=== PATIENT | female | born 1975 | race Caucasian/White ===

== ENCOUNTER 2023-12-30 17:18 | Inpatient (IN) ==
[2023-12-30] MEDS: SODIUM CHLORIDE 0.9% 1,000 ML IV SCH ×2 (18:05→20:16)
[2023-12-30 18:27] LABS: Appearance Urine Cloudy (Clear); Bacteria Urine Automated 1+ (Negative); Bilirubin Urine Negative (Negative); Blood Urine 1+ (Negative); Color Urine Dark Yellow; Epithelial Cell Urine Auto >30 /lpf (0-5); Glucose Urine UA Negative (Negative); Ketones Urine 1+ (Negative); Leukocyte Esterase Urine Negative (Negative); Nitrite Urine Negative (Negative); Protein Urine 1+ (Negative); Specific Gravity Urine 1.036 (1.000-1.030); Urobilinogen Urine Negative (Negative)
[2023-12-30 18:28] LABS: Basophils # (auto) 0.02 K/uL (0.00-0.20); Basophils % (auto) 0.2 %; Eosinophils # (auto) 0.01 K/uL (0.00-0.50); Eosinophils % (auto) 0.1 %; Hematocrit (blood only) 39.9 % (37.0-47.0); Hemoglobin 13.2 g/dl (12.0-16.0); Immature Granulocytes # (auto) 0.05 K/uL (0.01-0.20); Immature Granulocytes % (auto) 0.6 %; Lymphocytes # (auto) 0.93 K/uL (1.20-3.40); Lymphocytes % (auto) 10.5 %; Mean Corpuscular Hgb Conc 33.1 g/dL (32.0-36.0); Mean Corpuscular Volume 93.7 fL (80.0-100.0); Mean Platelet Volume 8.5 fL (9.4-12.4); Monocytes % (auto) 13.5 %; Neutrophils # (auto) 6.66 K/uL (1.40-6.50); Neutrophils % (auto) 75.1 %; Platelet Count 434 K/uL (130-400); RDW Coefficient of Variation 11.9 % (11.5-14.5); RDW Standard Deviation 40.6 fL (36.4-46.3); Red Blood Count 4.26 M/uL (4.20-5.40); White Blood Count 8.87 K/ul (4.8-10.8)
--- NOTE | 2023-12-30 18:37 | Emergency Department Note ---
History of Present Illness General Chief complaint: Illness Stated complaint: ULCERATIVE COLITIS FLARE-UP Time Seen by Provider: 12/30/23 17:30 History of Present Illness Patient is a 48-year-old female with past medical history significant for ulcerative colitis who presents to the emergency department at the advice of gastroenterology for an ulcerative colitis flare. Patient notes that her UC had been in remission on mesalamine and azathioprine for several years, she had a screening colonoscopy in the fall however that noted active disease. The patient was fairly asymptomatic with this. GI had her stop her oral agents and started her on Humira in October. She has been compliant with her Humira injections, most recently was administered a dose today. Despite the Humira, patient began to notice increasing symptoms including pain, cramping and bloody diarrhea. They resumed her oral agents, with no change. She subsequently has been on prednisone at varying doses for the last couple of weeks, with continued symptoms. She just saw GI 2 days ago, they increased the prednisone to 60 mg a day. She has had 3 doses of this, and reports that she is still having dozens of episodes of bloody diarrhea. Her GI provider suggested that if she did not get any better on the oral prednisone, that she should be admitted for IV steroids. Patient has not had any fevers. She has occasional nausea. She has not vomited. She reports bilateral lower abdominal cramping, but only prior to a bowel movement. Most the time she is generally comfortable. She has had blood work and stool studies recently that have been unremarkable. No recent antibiotics. No foreign travel or unusual food or water consumption. She does have well water as a source at home, but family members are drinking the same water and are not ill. She denies any sick contacts. LMP ended a few days ago. Allergies Allergy/AdvReac Type Severity Reaction Status Date / Time Sulfa (Sulfonamide Allergy Mild Rash Verified 12/30/23 17:53 Antibiotics) Past Med/Surg History Medical History Ulcerative colitis Surgical History History of colonoscopy Social History Smoking Status: Never smoker Preferred Language: Libyan marital status: Current Living Situation: Family current occupation: Homemaker, babysits, 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: Yes Review of Systems A total of 10 systems reviewed and were otherwise negative Physical Exam Vital Signs Vital Signs - 24 hr 12/30/23 17:22 12/30/23 20:00 Temperature 36.5 C Temperature Source Temporal Artery Scan Pulse Rate 97 H Pulse Rate [Finger] 87 Pulse Rhythm Regular Respiratory Rate 20 18 Respiratory Effort / Characteristics Non-Labored Spontaneous Non-Labored Spontaneous Respiratory Depth Normal Normal Respiratory Pattern Regular Regular Blood Pressure 129/85 Blood Pressure [Right Arm] 131/80 Blood Pressure Mean 99 Blood Pressure Mean [Right Arm] 97 Blood Pressure Position [Right Arm] Semi-fowlers Pulse Oximetry 97 100 Oxygen Delivery Method Room Air Room Air Sepsis Recent Fever Within 48 Hours No Sepsis New/Unexplained Change in Mental Status No Sepsis Action Taken by Nursing No Action Required CONSTITUTIONAL: Patient is a pleasant, well-appearing 48-year-old female laying on the gurney. She is in no acute distress. Spouse is at the bedside. EYES: Pupils equal, round, reactive to light and accommodation. EOMs intact without nystagmus. Sclera are anicteric. ENT: Tympanic membranes intact, with normal landmarks. External canals are clear. Oral and nasopharynx are clear. Mucous membranes are moist, no lesions, tongue and gums appear normal. CARDIOVASCULAR: Regular rate and rhythm. Peripheral pulses easy to palpable. RESPIRATORY: Breath sounds equal and clear to auscultation. GI: Bowel sounds are present. Abdomen is soft, mildly distended, tender to percussion and palpation across the lower abdomen. There is voluntary guarding in the right and the left lower quadrant. No rigidity. MUSCULOSKELETAL: Full range of motion of extremities x 4 with good strength. No cyanosis, edema, joint tenderness or swelling. No deformity. INTEGUMENTARY: No lesions or rash, normal skin turgor. LYMPH: No lymphadenopathy. Course Course The patient was seen and assessed as above. External medical records were reviewed. I did ask ED case checker to access the [employer] [facility] system for recent GI notes, and reviewed these as well. She presents to the emergency department for evaluation of a UC flare. It was the recommendation of her hose finisher that she be admitted for IV steroids. IV lock was initiated and laboratory studies were collected. She was hydrated with normal saline solution. She declined pain and nausea medications. CBC with differential, ESR, CMP, lipase, serum hCG, urinalysis and stool studies were obtained. CT scan of the abdomen and pelvis with IV contrast was ordered. Diagnostics, as interpreted by me: Laboratory studies: Normal white count 8800. Mild left shift noted. Mildly elevated ESR at 41. No anemia. No electrolyte imbalance or ABDIRASHID. No transaminitis. Lipase is not indicative of acute pancreatitis. Serum HCG negative, urine microscopy is a contaminated sample with greater than 30 epithelial cells and mucus. Stool PCR is negative. Stool is negative for C. difficile. Ova and parasites are pending. Imaging studies: CT scan of abdomen and pelvis with IV contrast notes pancolitis. No evidence for obstruction or abscess. Case reviewed with attending physician, Dr. Gooden. Patient also discussed with ED case checker. All laboratory and diagnostic imaging studies were discussed with the patient and her spouse at length. After review of the information above and other included data, I feel the patient would benefit from inpatient care. She has failed reasonable outpatient management. The patient was in agreement. Case reviewed with the [facility] hospitalist, Dr. Muhammad for further care and management. Differential diagnosis: Differential diagnoses entertained included GERD, gastritis, esophagitis, peptic ulcer disease, ulcerative colitis flare, infectious colitis, foodborne illness, bowel obstruction, perforation, abscess, fistula disease, electrolyte or metabolic abnormality, dehydration, among others. Administered Medications Sodium Chloride (Nss) 1,000 mls @ 250 mls/hr IV .Q4H [facility] Stop: 01/29/24 17:59 Last Admin: 12/30/23 20:16 Dose: 250 mls/hr Documented By: RIKA Discontinued Medications Sodium Chloride (Nss) 1,000 mls @ 999 mls/hr IV .Q1H1M MAYDA Stop: 12/30/23 18:54 Last Infusion: 12/30/23 19:49 Dose: Infused Documented By: Admin: 12/30/23 18:05 Dose: 999 mls/hr Documented By: RIKA Ioversol (Optiray 320 100ml) 89 ml IV ONCE ONE Stop: 12/30/23 18:59 Last Admin: 12/30/23 18:58 Dose: 89 ml Documented By: VIOLA Medical Decision Making Differential Diagnosis See ED Course. Medical Records Attestation: I reviewed the patient's medical records. Home Medications Current Medication List: was personally reviewed by me Laboratory Data Attestation: I reviewed the patient's lab results. 12/30/23 18:02 12/30/23 18:02 Lab Results 12/30/23 12/30/23 12/30/23 Range/Units 18:02 18:52 19:44 WBC 8.87 (4.8-10.8) K/ul RBC 4.26 (4.20-5.40) M/uL Hgb 13.2 (12.0-16.0) g/dl Hct 39.9 (37.0-47.0) % MCV 93.7 (80.0-100.0) fL MCH 31.0 (25.0-34.0) pg MCHC 33.1 (32.0-36.0) g/dL RDW Std Deviation 40.6 (36.4-46.3) fL RDW Coeff of Ezequiel 11.9 (11.5-14.5) % Plt Count 434 H (130-400) K/uL MPV 8.5 L (9.4-12.4) fL Immature Gran % (Auto) 0.6 % Neut % (Auto) 75.1 % Lymph % (Auto) 10.5 % Mcdowell % (Auto) 13.5 % Eos % (Auto) 0.1 % Baso % (Auto) 0.2 % Neut # (Auto) 6.66 H (1.40-6.50) K/uL Lymph # (Auto) 0.93 L (1.20-3.40) K/uL Mcdowell # (Auto) 1.20 H (0.11-0.59) K/uL Eos # (Auto) 0.01 (0.00-0.50) K/uL Baso # (Auto) 0.02 (0.00-0.20) K/uL Immature Gran # (Auto) 0.05 (0.01-0.20) K/uL ESR 41 H (0-20) mm/hr Sodium 137 (136-145) mmol/L Potassium 3.7 (3.5-5.1) mmol/L Chloride 102 (98-107) mmol/L Carbon Dioxide 27 (21-32) mmol/L Anion Gap 8 (3-11) BUN 12 (6-23) mg/dl Creatinine 0.72 (0.6-1.2) mg/dl Est Cr Clr Drug Dosing 95.8 ml/min Est GFR ( Amer) 114.0 ml/min Est GFR (Non-Af Amer) 98.3 ml/min BUN/Creatinine Ratio 16.7 (10-20) Glucose 109 H (70-99(Fasting)) mg/dl Lactate 0.9 (0.4-2.0) mmol/L Calcium 9.3 (8.6-10.3) mg/dl Total Bilirubin 0.6 (0.2-1.0) mg/dl AST 14 (13-39) U/L ALT 22 (7-52) U/L Alkaline Phosphatase 79 (34-104) U/L Total Protein 7.2 (6.0-8.3) gm/dl Albumin 3.9 (3.4-5.0) gm/dl Globulin 3.3 (2.5-4.0) gm/dl Albumin/Globulin Ratio 1.2 (0.9-2) Lipase 21 (11-82) U/L HCG, Qual Negative (Negative) Urine Color Dark Yellow Urine Appearance Cloudy A (Clear) Urine pH 6.0 (4.5-7.5) Ur Specific [place] 1.036 H (1.000-1.030) Urine Protein 1+ H (Negative) Urine Glucose (UA) Negative (Negative) Urine Ketones 1+ H (Negative) Urine Blood 1+ H (Negative) Urine Nitrite Negative (Negative) Urine Bilirubin Negative (Negative) Urine Urobilinogen Negative (Negative) Ur Leukocyte Esterase Negative (Negative) Urine WBC (Auto) 10-30 H (0-5) /hpf Urine RBC (Auto) 5-10 H (0-4) /hpf U Hyaline Cast (Auto) 0 (0-5) /lpf U Epithel Cells (Auto) >30 H (0-5) /lpf Urine Bacteria (Auto) 1+ H (Negative) Urine Mucus Present A (None Prsent) Stl C. cayetanensis PCR Not Detected (NotDetected) Stool Rotavirus A PCR Not Detected (NotDetected) Stl Adenov F 40/41 PCR Not Detected (NotDetected) Stool Astrovirus (PCR) Not Detected (NotDetected) Stool Campylobacter PCR Not Detected (NotDetected) Stl C. diff Tox B Gene Negative Cdiff Gene (Neg) Stool Cryptosporidium PCR Not Detected (NotDetected) Stl E.coli Shiga Tox PCR Not Detected (NotDetected) Stl Enterotoxigenic E PCR Not Detected (NotDetected) Stool EPEC (PCR) Not Detected (NotDetected) Stool EAEC (PCR) Not Detected (NotDetected) Stl E. histolytica PCR Not Detected (NotDetected) Stool Giardia Lamblia PCR Not Detected (NotDetected) Stool Salmonella PCR Not Detected (NotDetected) Stool Sapovirus (PCR) Not Detected (NotDetected) Stl P. shigelloides PCR Not Detected (NotDetected) Stl Shigella/EIEC PCR Not Detected (NotDetected) St Y.enterocolitica PCR Not Detected (NotDetected) Stool Vibrio (PCR) Not Detected (NotDetected) Stl Vibrio cholerae PCR Not Detected (NotDetected) Stl Norovirus GI/GII PCR Not Detected (NotDetected) Imaging Data Attestation: I personally reviewed and interpreted this imaging study as follows: Radiologist's Impression: Abdomen/Pelvis CT 12/30/23 17:53 Exam(s): CT ABDOMEN + PELVIS With Contrast IV Amt: 89 ml optiray 320 EXAM: CT Abdomen and Pelvis With Intravenous Contrast CLINICAL HISTORY: Reason for exam: ULC COLITIS FLARE, PAIN/BLOODY DIARRHEA. TECHNIQUE: Axial computed tomography images of the abdomen and pelvis with intravenous contrast. CTDI is 13.8 mGy and DLP is 690.21 mGy-cm. Automated exposure control was utilized for the study. A dose lowering technique was utilized adhering to the principles of ALARA. CONTRAST: Patient received 89 ml optiray 320 of IV contrast COMPARISON: No relevant prior studies available. FINDINGS: Lung bases: Unremarkable. No mass. No consolidation. ABDOMEN: Liver: Unremarkable. No mass. Gallbladder and bile ducts: Unremarkable. No calcified stones. No ductal dilation. Pancreas: Unremarkable. No mass. No ductal dilation. Spleen: Unremarkable. No splenomegaly. Adrenals: Unremarkable. No mass. Kidneys and ureters: Unremarkable. No solid mass. No hydronephrosis. Stomach and bowel: Pancolonic wall thickening with associated pericolic fat stranding and venous engorgement. No bowel obstruction. PELVIS: Appendix: Normal appendix. Bladder: Unremarkable. No mass. Reproductive: Multiple uterine masses, largest a right intramural mass measuring 7.7 cm, likely fibroids. ABDOMEN and PELVIS: Intraperitoneal space: Scant free pelvic fluid. No free air. Bones/joints: No acute fracture. No dislocation. Soft tissues: Unremarkable. Vasculature: Unremarkable. No abdominal aortic aneurysm. Lymph nodes: Unremarkable. No enlarged lymph nodes. IMPRESSION: 1. Pancolonic wall thickening consistent with pancolitis, inflammatory or infectious. 2. Fibroid uterus. Electronically signed by: Babs Corrales M.D. 12/30/23 19:21 PM MDM Narrative See ED Course. Impression & Plan Exacerbation of ulcerative colitis Discharge Plan Visit Data Chief Complaint: Illness Stated Complaint: ULCERATIVE COLITIS FLARE-UP ED Provider: Michael Gooden ED Midlevel Provider: Lewis Wharton Discharge Problem: Exacerbation of ulcerative colitis Patient Disposition: Being Evaluated by Hospitalist Forms Stand Alone Forms: My [facility] Referrals Referrals: PCP,NO [Primary Care Provider] -
[2023-12-30 18:39] LABS: Cast Urine Automated 0 /lpf (0-5); Mucus Urine Present (None Prsent)
[2023-12-30 18:45] LABS: Albumin Globulin Ratio 1.2 (0.9-2); Albumin Level 3.9 gm/dl (3.4-5.0); BUN Creatinine Ratio 16.7 (10-20); Bilirubin,Total 0.6 mg/dl (0.2-1.0); Calcium 9.3 mg/dl (8.6-10.3); Creatinine Clr Calc Pharmacy 95.8 ml/min; Est GFR (Non-African American) 98.3 ml/min; Globulin 3.3 gm/dl (2.5-4.0); Potassium 3.7 mmol/L (3.5-5.1); Total Protein 7.2 gm/dl (6.0-8.3)
[2023-12-30 18:50] LABS: Pregnancy Test, Serum Negative (Negative)
[2023-12-30] MEDS: OPTIRAY 320 100ml IV ONE (18:58)
--- NOTE | 2023-12-30 19:21 | CT Scan Report ---
Exam(s): CT ABDOMEN + PELVIS With Contrast IV Amt: 89 ml optiray 320 EXAM: CT Abdomen and Pelvis With Intravenous Contrast CLINICAL HISTORY: Reason for exam: ULC COLITIS FLARE, PAIN/BLOODY DIARRHEA. TECHNIQUE: Axial computed tomography images of the abdomen and pelvis with intravenous contrast. CTDI is 13.8 mGy and DLP is 690.21 mGy-cm. Automated exposure control was utilized for the study. A dose lowering technique was utilized adhering to the principles of ALARA. CONTRAST: Patient received 89 ml optiray 320 of IV contrast COMPARISON: No relevant prior studies available. FINDINGS: Lung bases: Unremarkable. No mass. No consolidation. ABDOMEN: Liver: Unremarkable. No mass. Gallbladder and bile ducts: Unremarkable. No calcified stones. No ductal dilation. Pancreas: Unremarkable. No mass. No ductal dilation. Spleen: Unremarkable. No splenomegaly. Adrenals: Unremarkable. No mass. Kidneys and ureters: Unremarkable. No solid mass. No hydronephrosis. Stomach and bowel: Pancolonic wall thickening with associated pericolic fat stranding and venous engorgement. No bowel obstruction. PELVIS: Appendix: Normal appendix. Bladder: Unremarkable. No mass. Reproductive: Multiple uterine masses, largest a right intramural mass measuring 7.7 cm, likely fibroids. ABDOMEN and PELVIS: Intraperitoneal space: Scant free pelvic fluid. No free air. Bones/joints: No acute fracture. No dislocation. Soft tissues: Unremarkable. Vasculature: Unremarkable. No abdominal aortic aneurysm. Lymph nodes: Unremarkable. No enlarged lymph nodes. IMPRESSION: 1. Pancolonic wall thickening consistent with pancolitis, inflammatory or infectious. 2. Fibroid uterus. Electronically signed by: Babs Corrales M.D. 12/30/23 19:21 PM
[2023-12-30 20:33] LABS: Adenovirus F 40/41 PCR Not Detected (NotDetected); Astrovirus PCR Not Detected (NotDetected); Campylobacter PCR Not Detected (NotDetected); Cryptosporidium PCR Not Detected (NotDetected); Cyclospora cayetanensis PCR Not Detected (NotDetected); Entamoeba histolytica PCR Not Detected (NotDetected); Enteroaggregative E.coli(EAEC) Not Detected (NotDetected); Enteropathogenic E.coli (EPEC) Not Detected (NotDetected); Enterotoxigenic E.coli (ETEC) Not Detected (NotDetected); Giardia lamblia PCR Not Detected (NotDetected); Norovirus GI/GII PCR Not Detected (NotDetected); Plesiomonas shigelloides PCR Not Detected (NotDetected); Rotavirus A PCR Not Detected (NotDetected); Salmonella PCR Not Detected (NotDetected); Sapovirus PCR Not Detected (NotDetected); Shiga-like Toxin E.coli (STEC) Not Detected (NotDetected); Shigella/Enteroinvasive E.coli Not Detected (NotDetected); Vibrio cholerae PCR Not Detected (NotDetected); Vibrio species PCR Not Detected (NotDetected); Yersinia enterocolitica PCR Not Detected (NotDetected)
--- NOTE | 2023-12-30 23:44 | History & Physical Report ---
Date of Service December 30, 2023 Assessment & Plan (1) Exacerbation of ulcerative colitis: Plan: 48-year-old female with past medical history significant for ulcerative proctosigmoiditis, family history of factor V deficiency comes because of ulcerative colitis flare. Patient states started on Humira in October. Patient also on Imuran and mesalamine. And she is on prednisone for almost 4 weeks and recently started on high-dose prednisone 60 mg. But still she is having multiple episodes of diarrhea and blood in the stools. Has abdominal pain prior to moving bowels and after bowel movement the pain subsides. Has nausea but no vomiting. Appetite is down. Denies any fevers. Micturating okay. No chest pain or shortness of breath. No headache. No blurred visions. No runny nose or sore throat or cough. Hemodynamics are okay. Exacerbation of ulcerative colitis Failed outpatient treatment with p.o. prednisone Recent start of Humira in October Continue home mesalamine and Imuran IV Solu-Medrol 20 mg 3 times daily N.p.o. for now IV fluids, IV Dilaudid as needed IV antiemetics as needed GI consult in a.m. for further recommendations DVT prophylaxis Lovenox Disposition Medical floor Full code History of Present Illness Chief Complaint: Ulcerative colitis flare Primary Care Provider: NO PCP 48-year-old female with past medical history significant for ulcerative proctosigmoiditis, family history of factor V deficiency comes because of ulcerative colitis flare. Patient states started on Humira in October. Patient also on Imuran and mesalamine. And she is on prednisone for almost 4 weeks and recently started on high-dose prednisone 60 mg. But still she is having multiple episodes of diarrhea and blood in the stools. Has abdominal pain prior to moving bowels and after bowel movement the pain subsides. Has nausea but no vomiting. Appetite is down. Denies any fevers. Micturating okay. No chest pain or shortness of breath. No headache. No blurred visions. No runny nose or sore throat or cough. Hemodynamics are okay. Past medical history. As mentioned above Past surgical history. Multiple colonoscopies. Social history. . No smoking. No alcohol use. No drug use. Family history. Maternal grandmother had breast cancer. Sister has thyroid disease. Allergies Allergy/AdvReac Type Severity Reaction Status Date / Time Sulfa (Sulfonamide Allergy Mild Rash Verified 12/30/23 21:56 Antibiotics) Home Medications Medication Instructions Recorded Confirmed Type adalimumab 40 mg/0.8 mL 40 mg subcut .[id number] 12/30/23 12/30/23 History subcutaneous pen kit (Humira Pen) azathioprine 50 mg tablet 150 mg PO QAM 12/30/23 12/30/23 History cholecalciferol (vitamin D3) 25 25 mcg PO DAILY 12/30/23 12/30/23 History mcg (1,000 unit) tablet (Vitamin D3) cyanocobalamin (vitamin B-12) 1,000 mcg PO DAILY 12/30/23 12/30/23 History 1,000 mcg tablet (Vitamin B-12) folic acid 0.8 mg capsule 0.8 mg PO DAILY 12/30/23 12/30/23 History mesalamine 1.2 gram tablet,delayed 4.8 g PO QAM 12/30/23 12/30/23 History release multivitamin 1 tab PO DAILY 12/30/23 12/30/23 History prednisone 10 mg tablet 60 mg PO DAILY 12/30/23 12/30/23 History Past Med/Surg History Medical History Ulcerative colitis Surgical History History of colonoscopy Social History Smoking Status: Never smoker Hx Alcohol Use: Yes Alcohol type: beer and wine Hx Substance Use: No Preferred Language: Kazakh Embroidery Supervisor Required: No Beliefs That Will Affect Care: None marital status: Current Living Situation: Spouse current occupation: Homemaker, babysits, 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: Yes Safety Concerns: Feels Safe At This Time Assistive Devices: None Review of Systems Review of Systems: All systems reviewed & are unremarkable except as noted in HPI & below Physical Exam Physical Exam: General- Not in distress Head- atraumatic Eyes- PERRL. ENT- oropharynx clear Neck- supple, no JVD. Lungs- clear to auscultation no wheezing or crackles. Heart- regular rhythm; no murmur, no gallop. Abdomen- normal bowel sounds, soft, nontender, no distension. Extremities- no pretibial edema, no erythema seen. Neuro- alert, oriented PERRL, no facial palsy; no dysarthria; moves extremities. Skin- warm & dry Results & Data Results & Data Vital Signs (Past 12 Hours) Vital Signs Temp Pulse Pulse Resp BP BP Pulse Ox 12/30/23 22:00 87 16 124/81 99 12/30/23 20:00 87 18 131/80 100 12/30/23 17:22 36.5 C 97 H 20 129/85 97 O2 Del Method 12/30/23 22:00 Room Air 12/30/23 20:00 Room Air 12/30/23 17:22 Room Air Diagnostic Findings Laboratory Results WBC 8.87 K/ul (4.8-10.8) 12/30/23 18: RBC 4.26 M/uL (4.20-5.40) 12/30/23 18:02 Hgb 13.2 g/dl (12.0-16.0) 12/30/23 18: Hct 39.9 % (37.0-47.0) 12/30/23 18:02 MCV 93.7 fL (80.0-100.0) 12/30/23 18: MCH 31.0 pg (25.0-34.0) 12/30/23 18: MCHC 33.1 g/dL (32.0-36.0) 12/30/23 18:02 RDW Std Deviation 40.6 fL (36.4-46.3) 12/30/23 18:02 RDW Coeff of Ezequiel 11.9 % (11.5-14.5) 12/30/23 18: Plt Count 434 K/uL (130-400) H 12/30/23 18:02 MPV 8.5 fL (9.4-12.4) L 12/30/23 18:02 Immature Gran % (Auto) 0.6 % 12/30/23 18: Neut % (Auto) 75.1 % 12/30/23 18:02 Lymph % (Auto) 10.5 % 12/30/23 18:02 [place] % (Auto) 13.5 % 12/30/23 18:02 Eos % (Auto) 0.1 % 12/30/23 18:02 Baso % (Auto) 0.2 % 12/30/23 18:02 Neut # (Auto) 6.66 K/uL (1.40-6.50) H 12/30/23 18:02 Lymph # (Auto) 0.93 K/uL (1.20-3.40) L 12/30/23 18:02 [place] # (Auto) 1.20 K/uL (0.11-0.59) H 12/30/23 18:02 Eos # (Auto) 0.01 K/uL (0.00-0.50) 12/30/23 18:02 Baso # (Auto) 0.02 K/uL (0.00-0.20) 12/30/23 18:02 Immature Gran # (Auto) 0.05 K/uL (0.01-0.20) 12/30/23 18:02 ESR 41 mm/hr (0-20) H 12/30/23 18:02 Sodium 137 mmol/L (136-145) 12/30/23 18:02 Potassium 3.7 mmol/L (3.5-5.1) 12/30/23 18:02 Chloride 102 mmol/L (98-107) 12/30/23 18:02 Carbon Dioxide 27 mmol/L (21-32) 12/30/23 18:02 Anion Gap 8 (3-11) 12/30/23 18:02 BUN 12 mg/dl (6-23) 12/30/23 18:02 Creatinine 0.72 mg/dl (0.6-1.2) 12/30/23 18:02 Est Cr Clr Drug Dosing 95.8 ml/min 12/30/23 18:02 Est GFR ( Amer) 114.0 ml/min 12/30/23 18:02 Est GFR (Non-Af Amer) 98.3 ml/min 12/30/23 18:02 BUN/Creatinine Ratio 16.7 (10-20) 12/30/23 18:02 Glucose 109 mg/dl (70-99(Fasting)) H 12/30/23 18:02 Lactate 0.9 mmol/L (0.4-2.0) 12/30/23 19:44 Calcium 9.3 mg/dl (8.6-10.3) 12/30/23 18:02 Total Bilirubin 0.6 mg/dl (0.2-1.0) 12/30/23 18:02 AST 14 U/L (13-39) 12/30/23 18:02 ALT 22 U/L (7-52) 12/30/23 18:02 Alkaline Phosphatase 79 U/L (34-104) 12/30/23 18:02 Total Protein 7.2 gm/dl (6.0-8.3) 12/30/23 18:02 Albumin 3.9 gm/dl (3.4-5.0) 12/30/23 18: Globulin 3.3 gm/dl (2.5-4.0) 12/30/23 18: Albumin/Globulin Ratio 1.2 (0.9-2) 12/30/23 18: Lipase 21 U/L (11-82) 12/30/23 18:02 HCG, Qual Negative (Negative) 12/30/23 18: Urine Color Dark Yellow 12/30/23 18: Urine Appearance Cloudy (Clear) A 12/30/23 18: Urine pH 6.0 (4.5-7.5) 12/30/23 18: Ur Specific [place] 1.036 (1.000-1.030) H 12/30/23 18:02 Urine Protein 1+ (Negative) H 12/30/23 18: Urine Glucose (UA) Negative (Negative) 12/30/23 18: Urine Ketones 1+ (Negative) H 12/30/23 18: Urine Blood 1+ (Negative) H 12/30/23 18: Urine Nitrite Negative (Negative) 12/30/23 18: Urine Bilirubin Negative (Negative) 12/30/23 18: Urine Urobilinogen Negative (Negative) 12/30/23 18: Ur Leukocyte Esterase Negative (Negative) 12/30/23 18:02 Urine WBC (Auto) 10-30 /hpf (0-5) H 12/30/23 18:02 Urine RBC (Auto) 5-10 /hpf (0-4) H 12/30/23 18:02 U Hyaline Cast (Auto) 0 /lpf (0-5) 12/30/23 18:02 U Epithel Cells (Auto) >30 /lpf (0-5) H 12/30/23 18:02 Urine Bacteria (Auto) 1+ (Negative) H 12/30/23 18:02 Urine Mucus Present (None Prsent) A 12/30/23 18:02 Stl C. cayetanensis PCR Not Detected (NotDetected) 12/30/23 18:52 Stool Rotavirus A PCR Not Detected (NotDetected) 12/30/23 18:52 Stl Adenov F 40/41 PCR Not Detected (NotDetected) 12/30/23 18:52 Stool Astrovirus (PCR) Not Detected (NotDetected) 12/30/23 18:52 Stool Campylobacter PCR Not Detected (NotDetected) 12/30/23 18:52 Stl C. diff Tox B Gene Negative Cdiff Gene (Neg) 12/30/23 18:52 Stool Cryptosporidium PCR Not Detected (NotDetected) 12/30/23 18:52 Stl E.coli Shiga Tox PCR Not Detected (NotDetected) 12/30/23 18:52 Stl Enterotoxigenic E PCR Not Detected (NotDetected) 12/30/23 18:52 Stool EPEC (PCR) Not Detected (NotDetected) 12/30/23 18:52 Stool EAEC (PCR) Not Detected (NotDetected) 12/30/23 18:52 Stl E. histolytica PCR Not Detected (NotDetected) 12/30/23 18:52 Stool Giardia Lamblia PCR Not Detected (NotDetected) 12/30/23 18:52 Stool Salmonella PCR Not Detected (NotDetected) 12/30/23 18:52 Stool Sapovirus (PCR) Not Detected (NotDetected) 12/30/23 18:52 Stl P. shigelloides PCR Not Detected (NotDetected) 12/30/23 18:52 Stl Shigella/EIEC PCR Not Detected (NotDetected) 12/30/23 18:52 St Y.enterocolitica PCR Not Detected (NotDetected) 12/30/23 18:52 Stool Vibrio (PCR) Not Detected (NotDetected) 12/30/23 18:52 Stl Vibrio cholerae PCR Not Detected (NotDetected) 12/30/23 18:52 Stl Norovirus GI/GII PCR Not Detected (NotDetected) 12/30/23 18:52 Impressions Abdomen/Pelvis CT 12/30/23 17:53 Exam(s): CT ABDOMEN + PELVIS With Contrast IV Amt: 89 ml optiray 320 EXAM: CT Abdomen and Pelvis With Intravenous Contrast CLINICAL HISTORY: Reason for exam: ULC COLITIS FLARE, PAIN/BLOODY DIARRHEA. TECHNIQUE: Axial computed tomography images of the abdomen and pelvis with intravenous contrast. CTDI is 13.8 mGy and DLP is 690.21 mGy-cm. Automated exposure control was utilized for the study. A dose lowering technique was utilized adhering to the principles of ALARA. CONTRAST: Patient received 89 ml optiray 320 of IV contrast COMPARISON: No relevant prior studies available. FINDINGS: Lung bases: Unremarkable. No mass. No consolidation. ABDOMEN: Liver: Unremarkable. No mass. Gallbladder and bile ducts: Unremarkable. No calcified stones. No ductal dilation. Pancreas: Unremarkable. No mass. No ductal dilation. Spleen: Unremarkable. No splenomegaly. Adrenals: Unremarkable. No mass. Kidneys and ureters: Unremarkable. No solid mass. No hydronephrosis. Stomach and bowel: Pancolonic wall thickening with associated pericolic fat stranding and venous engorgement. No bowel obstruction. PELVIS: Appendix: Normal appendix. Bladder: Unremarkable. No mass. Reproductive: Multiple uterine masses, largest a right intramural mass measuring 7.7 cm, likely fibroids. ABDOMEN and PELVIS: Intraperitoneal space: Scant free pelvic fluid. No free air. Bones/joints: No acute fracture. No dislocation. Soft tissues: Unremarkable. Vasculature: Unremarkable. No abdominal aortic aneurysm. Lymph nodes: Unremarkable. No enlarged lymph nodes. IMPRESSION: 1. Pancolonic wall thickening consistent with pancolitis, inflammatory or infectious. 2. Fibroid uterus. Electronically signed by: Babs Corrales M.D. 12/30/23 19:21 PM Code Status & VTE Plan VTE Prophylaxis Plan VTE Prophylaxis will be ordered: Yes
[2023-12-30] MEDS: methylPREDNISolone 125 MG/2 ML VIAL IV STA (23:46)
[2023-12-31] MEDS ORDERED: HYDROmorphone INJ 0.5 MG/0.5 ML SYR IV PRN (00:43)
[2023-12-31] MEDS ORDERED: ONDANSETRON INJ 2 MG/ML 2 ML VIAL IV PRN (00:43)
[2023-12-31] MEDS: D5W AND NSS 1,000 ML IV SCH (01:23)
[2023-12-31] MEDS: cefTRIAXone SODIUM 1,000 MG in DEXTROSE 5 % MINI-B 50 ML IV SCH (01:23)
[2023-12-31 05:58] LABS: Basophils # (auto) 0.02 K/uL (0.00-0.20); Basophils % (auto) 0.3 %; Eosinophils # (auto) 0.01 K/uL (0.00-0.50); Eosinophils % (auto) 0.1 %; Hematocrit (blood only) 34.5 % (37.0-47.0); Hemoglobin 11.6 g/dl (12.0-16.0); Immature Granulocytes # (auto) 0.03 K/uL (0.01-0.20); Immature Granulocytes % (auto) 0.4 %; Lymphocytes # (auto) 0.71 K/uL (1.20-3.40); Lymphocytes % (auto) 9.8 %; Mean Corpuscular Hemoglobin 31.4 pg (25.0-34.0); Mean Corpuscular Hgb Conc 33.6 g/dL (32.0-36.0); Mean Corpuscular Volume 93.5 fL (80.0-100.0); Mean Platelet Volume 8.5 fL (9.4-12.4); Monocytes # (auto) 0.55 K/uL (0.11-0.59); Monocytes % (auto) 7.6 %; Neutrophils % (auto) 81.8 %; Platelet Count 347 K/uL (130-400); RDW Standard Deviation 40.9 fL (36.4-46.3); Red Blood Count 3.69 M/uL (4.20-5.40); White Blood Count 7.22 K/ul (4.8-10.8)
[2023-12-31 06:50] LABS: Anion Gap 5 (3-11); BUN Creatinine Ratio 9.1 (10-20); Blood Urea Nitrogen 6 mg/dl (6-23); Calcium 8.1 mg/dl (8.6-10.3); Carbon Dioxide 25 mmol/L (21-32); Chloride 107 mmol/L (98-107); Creatinine Clr Calc Pharmacy 104.8 ml/min; Est GFR (African American) 120.2 ml/min; Est GFR (Non-African American) 103.7 ml/min; Glucose 126 mg/dl (70-99(Fasting)); Magnesium 1.9 mg/dl (1.7-2.4); Sodium 137 mmol/L (136-145)
[2023-12-31] MEDS: methylPREDNISolone 20 MG in SYRINGE 0 ML IV SCH (07:30)
[2023-12-31] MEDS: ENOXAPARIN INJ 40 MG/0.4 ML SYR SQ SCH (08:55)
[2023-12-31] MEDS ORDERED: methylPREDNISolone 125 MG/2 ML VIAL IV SCH (09:00)
--- NOTE | 2023-12-31 09:09 | History & Physical Report ---
Date of Service December 31, 2023 Assessment & Plan Admission and Anticipated Discharge Date Admission Date: December 30, 2023 History of Present Illness Primary Care Provider: NO PCP UC CV: RRR Resp: CTA Abd: soft A/P: UC flare Allergies Allergy/AdvReac Type Severity Reaction Status Date / Time Sulfa (Sulfonamide Allergy Mild Rash Verified 12/31/23 09:05 Antibiotics) Home Medications Medication Instructions Recorded Confirmed Type adalimumab 40 mg/0.8 mL 40 mg subcut .[id number] 12/30/23 12/30/23 History subcutaneous pen kit (Humira Pen) azathioprine 50 mg tablet 150 mg PO QAM 12/30/23 12/30/23 History cholecalciferol (vitamin D3) 25 25 mcg PO DAILY 12/30/23 12/30/23 History mcg (1,000 unit) tablet (Vitamin D3) cyanocobalamin (vitamin B-12) 1,000 mcg PO DAILY 12/30/23 12/30/23 History 1,000 mcg tablet (Vitamin B-12) folic acid 0.8 mg capsule 0.8 mg PO DAILY 12/30/23 12/30/23 History mesalamine 1.2 gram tablet,delayed 4.8 g PO QAM 12/30/23 12/30/23 History release multivitamin 1 tab PO DAILY 12/30/23 12/30/23 History prednisone 10 mg tablet 60 mg PO DAILY 12/30/23 12/30/23 History Past Med/Surg History Medical History Ulcerative colitis Surgical History History of colonoscopy Social History Smoking Status: Never smoker Hx Alcohol Use: Yes Alcohol type: beer and wine Hx Substance Use: No Preferred Language: Khmer Ring Maker Required: No Beliefs That Will Affect Care: None marital status: Current Living Situation: Spouse current occupation: Homemaker, babysits, 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
--- NOTE | 2023-12-31 09:12 | Anesthesiology Consultation ---
Date of Service December 31, 2023 History Surgery Operation Date: 12/31/23 17:30 Proposed Procedures p Colonoscopy Dr Gray - Dayna Gray MD Pt has a history of ulcerative collitis on Humira and Prednisone 60 q/day. Now with an UC exacerbation. Height/Weight Height: 5 ft 6 in Weight: 72 kg Allergies Allergy/AdvReac Type Severity Reaction Status Date / Time Sulfa (Sulfonamide Allergy Mild Rash Verified 12/31/23 09:05 Antibiotics) Medications Home Medications Medication Instructions Recorded Confirmed Last Taken adalimumab 40 mg/0.8 mL 40 mg subcut .[id number] 12/30/23 12/30/23 12/30/23 subcutaneous pen kit (Humira Pen) azathioprine 50 mg tablet 150 mg PO QAM 12/30/23 12/30/23 12/30/23 08:00 cholecalciferol (vitamin D3) 25 25 mcg PO DAILY 12/30/23 12/30/23 Unknown mcg (1,000 unit) tablet (Vitamin D3) cyanocobalamin (vitamin B-12) 1,000 mcg PO DAILY 12/30/23 12/30/23 Unknown 1,000 mcg tablet (Vitamin B-12) folic acid 0.8 mg capsule 0.8 mg PO DAILY 12/30/23 12/30/23 Unknown mesalamine 1.2 gram tablet,delayed 4.8 g PO QAM 12/30/23 12/30/23 12/30/23 08:00 release multivitamin 1 tab PO DAILY 12/30/23 12/30/23 Unknown prednisone 10 mg tablet 60 mg PO DAILY 12/30/23 12/30/23 12/30/23 08:00 Active Medications Generic Name Dose Route Start Last Admin Trade Name Freq PRN Reason Stop Dose Admin Enoxaparin Sodium 40 mg 12/31/23 09:00 12/31/23 08:55 Enoxaparin Inj 40 Mg/0.4 Ml Syr SQ 01/30/24 08:59 40 mg Q24H MAYDA Administration Dextrose/Sodium Chloride 1,000 mls @ 125 mls/hr 12/31/23 00:43 12/31/23 01:23 D5w And Nss IV 01/30/24 00:42 125 mls/hr .Q8H MAYDA Administration Ceftriaxone Sodium 1,000 mg/ 50 mls @ 100 mls/hr 12/31/23 01:00 12/31/23 03:56 Dextrose IV 01/10/24 00:59 Infused Q24H MAYDA Infusion Protocol Methylprednisolone 20 mg/ 0.32 mls @ 1.5 mls/min 12/31/23 08:00 12/31/23 07:30 Syringe IV 01/30/24 07:59 1.5 mls/min Q8H MAYDA Administration Miscellaneous 1 each 12/31/23 08:00 12/31/23 07:30 Mesalamine 1.2 Gram Tablet - Order Awaiting Action N/A 01/30/24 07:59 Not Given QS MAYDA Past Medical History Medical History Ulcerative colitis Past Surgical History Surgical History History of colonoscopy Social History Smoking Status: Never smoker Hx Alcohol Use: Yes Alcohol type: beer and wine alcohol intake frequency: holidays/special occasions only Hx Substance Use: No substance use type: does not use Physical Exam Vital Signs Last Vital Signs Temp 36.6 C 12/31/23 07:40 Pulse 87 12/31/23 07:40 Resp 16 12/31/23 07:40 BP 130/79 12/31/23 07:40 Pulse Ox 97 12/31/23 07:40 O2 Del Method Room Air 12/31/23 07:40 Testing Laboratory Results 12/31/23 05:30 12/31/23 07:13 Urine Color Dark Yellow 12/30/23 18:02 Urine Appearance Cloudy (Clear) A 12/30/23 18:02 Urine pH 6.0 (4.5-7.5) 12/30/23 18:02 Ur Specific [place] 1.036 (1.000-1.030) H 12/30/23 18:02 Urine Protein 1+ (Negative) H 12/30/23 18:02 Urine Glucose (UA) Negative (Negative) 12/30/23 18:02 Urine Ketones 1+ (Negative) H 12/30/23 18:02 Urine Nitrite Negative (Negative) 12/30/23 18:02 Ur Leukocyte Esterase Negative (Negative) 12/30/23 18:02 Urine WBC (Auto) 10-30 /hpf (0-5) H 12/30/23 18:02 Urine RBC (Auto) 5-10 /hpf (0-4) H 12/30/23 18:02 U Hyaline Cast (Auto) 0 /lpf (0-5) 12/30/23 18:02 U Epithel Cells (Auto) >30 /lpf (0-5) H 12/30/23 18:02 Urine Bacteria (Auto) 1+ (Negative) H 12/30/23 18:02
--- NOTE | 2023-12-31 09:57 | Gastrointestinal Consultation ---
Date of Consultation December 31, 2023 Assessment & Plan (1) Exacerbation of ulcerative colitis: Plan Continue IV steroids, NPO. Unprepped colonoscopy today by Dr. Gray. Further recommendations to follow. Supervising Physician Co-Signing Physician Notes Attg add: Pt with h/o UC now with flare failing outpt steroids, admit with > 10 bloody BM's daily. No systemic toxicity, she looks well without abd tenderness on exam. WBC and hgb preserved, albumin preserved, CRP 1.5. Cscopy with severe colitis. IV steroids; r/o CMV by pathology results; plan for transition to [facility]. Repeat CRP / albumin tomorrow. History of Present Illness Reason for Consultation: UC, failed OP treatment Requesting Physician: Dr. Willis Attending Physician: Matty Willis MD History of Present Illness Ms. Yelena Orozco is a 48 yr old female patient admitted yesterday for failed OP tx of UC. She is on Humira, since October and has also been on prednisone tapers x 2 since then with continued diarrhea (multiple/day, w some blood), diffuse abd discomfort. CT yesterday w pancolic wall thickening. She is mildly anemic at 11.6. No leukocytosis. Stools for C-diff and GI path (-). Allergies Allergy/AdvReac Type Severity Reaction Status Date / Time Sulfa (Sulfonamide Allergy Mild Rash Verified 12/31/23 09:05 Antibiotics) Home Medications Medication Instructions Recorded Confirmed Type adalimumab 40 mg/0.8 mL 40 mg subcut .[id number] 12/30/23 12/30/23 History subcutaneous pen kit (Humira Pen) azathioprine 50 mg tablet 150 mg PO QAM 12/30/23 12/30/23 History cholecalciferol (vitamin D3) 25 25 mcg PO DAILY 12/30/23 12/30/23 History mcg (1,000 unit) tablet (Vitamin D3) cyanocobalamin (vitamin B-12) 1,000 mcg PO DAILY 12/30/23 12/30/23 History 1,000 mcg tablet (Vitamin B-12) folic acid 0.8 mg capsule 0.8 mg PO DAILY 12/30/23 12/30/23 History mesalamine 1.2 gram tablet,delayed 4.8 g PO QAM 12/30/23 12/30/23 History release multivitamin 1 tab PO DAILY 12/30/23 12/30/23 History prednisone 10 mg tablet 60 mg PO DAILY 12/30/23 12/30/23 History Patient History Medical History Ulcerative colitis Surgical History History of colonoscopy Social History Smoking Status: Never smoker Hx Alcohol Use: Yes Alcohol type: beer and wine Hx Substance Use: No Preferred Language: Tajik Communication Ability: Effective Senior Sustainability Advisor Required: No Beliefs That Will Affect Care: None marital status: Current Living Situation: Spouse current occupation: Homemaker, babysits, 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: Yes Safety Concerns: Feels Safe At This Time Assistive Devices: None Review of Systems 2 Review of Systems: ROS: Gen: Denies weakness, fevers, weight loss Eyes: No eye redness, or pain, no recent vision changes Resp: No SOB, no cough Cardio: No palpitations/irregular beats, no chest pain GI: As per HPI, otherwise (-) : Denies pain on urination Skin: No jaundice, itching or new rashes Physical Exam 2 Constitutional: WD/WN, vitals as above Eyes: PERRL, conjunctivae normal, anicteric sclerae ENMT: external ear and nose normal, oropharynx normal Neck: trachea midline, no thyromegaly Respiratory: normal respiratory effort, lungs clear to auscultation Cardiovascular: RRR, no murmur, no edema Gastrointestinal (Abdomen): soft, non distended, diffuse abd tenderness L >R Musculoskeletal: no cyanosis or clubbing, extremities motor strength 5/5 Skin: no rashes, warm and dry Neurologic: PERRL, EOMI, accommodation nl, no face palsy, no dysarthria Psychiatric: A+Ox3, euthymic affect Results & Data Vital Signs (Past 12 Hours) Vital Signs Temp Pulse Resp BP Pulse Ox O2 Del Method 12/31/23 09:42 101 H 16 116/83 97 Room Air 12/31/23 09:06 36.6 C 84 16 149/87 H 100 Room Air 12/31/23 07:40 36.6 C 87 16 130/79 97 Room Air 12/31/23 00:49 36.9 C 95 H 16 147/83 H 95 Room Air 12/30/23 23:52 36.9 C 83 16 125/79 98 Room Air 12/30/23 22:00 87 16 124/81 99 Room Air Laboratory Results 12/31/23 05:30 12/31/23 07:13 Diagnostic Findings CTAP w IV 12/30/23: 1. Pancolonic wall thickening consistent with pancolitis, inflammatory or infectious. 2. Fibroid uterus.
--- NOTE | 2023-12-31 10:06 | GI REPORT ---
Patient Name: Yelena Orozco Procedure Date: 12/31/2023 9:15 AM Date of : 1975 Admit Type: Inpatient Age: 48 Gender: Female Attending MD: Dayna Gray MD, Procedure: Colonoscopy Providers: Dayna Gray MD Referring MD: Matty Willis Md Indications: Follow-up of ulcerative colitis Medicines: See the Anesthesia note for documentation of the administered medications Complications: No immediate complications. Estimated Blood Loss: Estimated blood loss: none. Procedure: Pre-Anesthesia Assessment: - ASA Grade Assessment: III - A patient with severe systemic disease. After I obtained informed consent, the scope was passed under direct vision. Throughout the procedure, the patient's blood pressure, pulse, and oxygen saturations were monitored continuously. The scope was introduced through the anus and advanced to the cecum, identified by appendiceal orifice and ileocecal valve. The colonoscopy was performed without difficulty. The patient tolerated the procedure. The quality of the bowel preparation was good. Findings: The perianal and digital rectal examinations were normal. There was evidence of severe colitis throughout the entire colon, characterized by continuous and circumferential ulceration, marked edema and erythema of the entire colonic mucosa. The ulceration was near confluent in the descending colon, with only patches of edematous mucosa. There was no spontaneous bleeding. The ileum was not intubated, as the pt began to retch with cecal intubation. Biopses taken from throughout the colon. Impression: Frank 3 rangel-colitis. Recommendation: - Discharge patient to floor. Continue steroids. Follow up biopsies for CMV. Consider transition to [facility]. Dayna Gray M.D. Dayna Gray MD 12/31/2023 10:05:56 AM This report has been signed electronically. Note Initiated On: 12/31/2023 9:15 AM Number of Addenda: 0 I attest to the content of the Intraoperative Record and orders documented therein, exceptions below {[id number]}
[2023-12-31] MEDS: FOLIC ACID 400 MCG TAB PO SCH (10:33)
[2023-12-31] MEDS: MULTIVITAMIN TAB PO SCH (10:33)
[2023-12-31] MEDS: CHOLECALCIFEROL 25 MCG (1000 UNITS) TAB PO SCH (10:33)
[2023-12-31] MEDS: CYANOCOBALAMIN (B-12) 500 MCG TABLET PO SCH (10:33)
[2023-12-31] MEDS: azaTHIOprine 50 MG TAB PO SCH (10:34)
[2023-12-31] MEDS: ONDANSETRON INJ 2 MG/ML 2 ML VIAL ONE (10:44)
[2023-12-31] MEDS: PROPOFOL IV EMULSION 10 MG/ML 20 ML VIAL IV ONE (10:44)
[2023-12-31] MEDS: LIDOCAINE 2% 2 ML VIAL/AMP(20MG/ML) INFIL ONE (10:44)
--- OUTSIDE RECORDS SUMMARY | 2023-12-31 13:15 | External Medical Summary | Summary of Care ---
Author Name Unknown Organization [facility] Address [address] [place] [address] Phone [phone] Care Team Providers Care Ash Conveyor Operator Name Role Phone Jessica Haas PA-C Primary Care Provider Reason for Visit * Reason Comments Outpatient Testing Encounter Details Date Type Department Care Team ([facility] st Contact Info) Description 12/09/2023 3:50 PM [facility] Laboratory [facility] [address] [facility] [address] [place] [id number] Ulcerative colitis without complications, unspecified location (HCC) Allergies Active Allergy Reactions Criticality Noted Date Comments Sulfa Antibiotics Rash 01/18/2001 documented as of this encounter (statuses as of 12/09/2023) Medications Medication Sig Dispensed Refills Start Date End Date Status MULTIVITAMIN/MULTIMINERAL PO TABS 1 TABLET DAILY , vitamin with Calcium 0 03/17/2006 Active FOLIC ACID 800 MCG PO TABSIndications:Ulcerativ e proctosigmoiditis (HCC) 1 TABLET DAILY 0 03/17/2006 Active VITAMIN B-12 250 MCG PO TABS 1 tablet a day 0 Active VITAMIN D3 400 UNITS PO TABS 1 tablets daily 0 Active Humira Pen 40 MG/0.8ML Subcutaneous Pen-injector Kit (Adalimumab)Indications:U lcerative rectosigmoiditis with complication (HCC) Inject 1 pen (40mg) under the skin every 2 weeks. 2 Each 5 08/26/2023 Active Magnesium 200 MG Oral Tablet Chewable Take by mouth. 0 Activ e documented as of this encounter (statuses as of 12/09/2023) Active Problems Problem Noted Date Diagnosed Date Family history of factor V deficiency 12/27/2013 ADVANCE DIRECTIVE INFORMATION 03/04/2007 Overview: No, Advance Directive brochure offered , patient declined. 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 documented as of this encounter (statuses as of 12/09/2023) Immunizations Name Administration Dates Next Due Seasonal Influenza, PF, 6 M & above, IM , (FluLaval or Fluzone) 12/06/2019 TDAP (age 11 and older)(Adacel) 09/26/2009 documented as of this encounter Social History Tobacco Use Types Packs/Day Years Used Date Smoking Tobacco: Never Smokeless Tobacco: Never Alcohol Use Standard Drinks/Week Comments No 0 (1 standard drink = 0.6 oz pur e alcohol) PHQ-2 Answer Date Recorded PHQ-2 Score 0 08/08/2018 Sex and Gender Information Value Date Recorded Sex Assigned at Not on file Gender Identity Not on file Sexual Orientation Not on file Job Start Date Occupation Industry Not on file Not on file Not on file documented as of this encounter Plan of Treatment Upcoming Encounters Date Type Department Care Team (Latest Contact Info) Description 02/15/2024 3:00 PM EDT Office Visit Dermatology [facility] [address] [place] [address] Dominic Lynch PA-C [address] [place] [address] 03/10/2024 12:30 PM EDT Office Visit Gastroenterology, [facility] [address] [place] [address] Angella Aguilera CRNP [address] [place] [address] 05/12/2024 9:30 AM EDT Hospital Encounter ENDO [facility], Endoscopy Room [facility] [address] [phone] Tunde Rod MD [address] [place] [address] 05/12/2024 9:30 AM EDT - 05/12/2024 10:00 AM EDT Surgery ENDO [facility], Endoscopy Room [facility] [address] [place] [phone] Tunde Rod MD [address] [place] [address] COLONOSCOPY FLEXIBLE PROXIMAL DIAGNOSTIC Pending Results Name Type Priority Associated Diagnoses Date /Time ERYTHROCYTE SEDIMENTATION RATE (ESR) Lab Routine Ulcerative colitis without complications, unspecified location (HCC) 12/09/2023 3:55 PM EST CRP (INFLAMMATORY MARKER) Lab Routine Ulcerative colitis without complications, unspecified location (HCC) 12/09/2023 3:55 PM EST Scheduled Procedures Name Priority Associated Diagnoses Date/Ti me COLONOSCOPY FLEXIBLE PROXIMAL DIAGNOSTIC Ulcerative colitis (HCC) 05/12/2024 9:30 AM EDT Health Maintenance Due Date Last Done Comments Lipid Panel 1974 COVID-19 Vaccine (#1) 1979 Pneumococcal Vaccine: Pediatrics (0 to 5 Years) and At-Risk Patients (6 to 64 Years) (1 of 2 - PCV) 1980 HIV Screening 1989 Hepatitis C Screening 1992 Hepatitis B (1 of 3 - 19+ 3-dose series) 1993 HPV/Co-Test 2004 Depression Screening 10/21/2018 10/21/2017 DTaP,Tdap,and Td Vaccines (2 - Td or Tdap) 09/26/2019 09/26/2009 Mammogram 06/08/2020 06/08/2019 Cervical Cancer Screening 11/04/2020 Pap Smear 11/04/2020 11/04/2017, 10/07, 12/27/2013, Additional history exists Influenza Vaccine (FLU shot) (#1) 2023 12/06/2019, 11/04/2017 (Declined) COLONOSCOPY-EVERY 2 YRS AGES 18-100 06/23/2025 06/23/2023, 06/23/2023, 02/27/2021, Additional history exists Diabetes Screening 08/06/2026 08/06/2023, 0 02/19/2023, 09/02/2022, Additional history exists GARDASIL-HPV IMMUNIZATION SERIES Aged Out No longer eligible based on patient's age to complete this topic MENINGOCOCCAL (MENACTRA/MENVEO) Aged Out No longer eligible based on patient's age to complete this topic documented as of this encounter Medical Devices Not on filedocumented as of this encounter Visit Diagnoses Diagnosis Ulcerative colitis without complications, unspecified location (HCC) Ulcerative colitis (HCC) Ulcerative colitis, unspecified documented in this encounter Care Teams Ash Conveyor Operator Relationship Specialty Start Date End Date Jessica Haas PA-C [address] [place], [place] [address] [id number] PCP - General Physician Safety And Occupational Health Manager 03/09/19 documented as of this encounter
--- OUTSIDE RECORDS SUMMARY | 2023-12-31 13:15 | External Medical Summary ---
Author Name Unknown Address Unknown Organization [id number]:[facility] - [address] [place] [address] Laboratory Report Ordering Provider Test Date Status AYALA REID 12/10/2023 11:39:12 Final Observation Date Value Abnormality Reference (Units) Status Source 12/10/2023 11:39:12 Liquid Final Clostridioides difficile toxin and [id number] strain DNA panel - Stool by [facility] with probe detection 12/10/2023 11:39:12 Negative. No C. difficile toxin B gene DNA detected by PCR (Amplified Probe). Negative Final Performing Location [facility] - [address] [place] [address]
--- OUTSIDE RECORDS SUMMARY | 2023-12-31 13:15 | External Medical Summary | Summary of Care ---
Author Name Unknown Organization [facility] Address [address] [place] [address] Phone [phone] Care Team Providers Care Refuse Collector Name Role Phone Jessica Haas PA-C Primary Care Provider Reason for Visit * Reason Comments Outpatient Testing Encounter Details Date Type Department Care Team (Late st Contact Info) Description 12/10/2023 11:40 AM [facility] Laboratory Laboratory [facility], [address] [address] Street, Specimen Drop Off [address] [address] Ulcerative colitis without complications, unspecified location (HCC) Allergies Active Allergy Reactions Criticality Noted Date Comments Sulfa Antibiotics Rash 01/18/2001 documented as of this encounter (statuses as of 12/10/2023) Medications Medication Sig Dispensed Refills Start Date [...] as of this encounter (statuses as of 12/10/2023) Active Problems Problem Noted Date Diagnosed Date Family history of factor V deficiency 12/27/2013 ADVANCE DIRECTIVE INFORMATION 03/04/2007 Overview: No, Advance Directive brochure offered , patient declined. 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 [address] [address] Angella Aguilera CRNP [address] [address] 05/12/2024 9:30 AM EDT Hospital Encounter ENDO [facility], Endoscopy Room [facility] [address] [phone] Tunde Rod MD [address] [place] [address] 05/12/2024 9:30 AM EDT - 05/12/2024 10:00 AM EDT Surgery ENDO [facility], Endoscopy Room [facility] [address] [place] [phone] Tunde Rod MD [address] [place] [address] COLONOSCOPY FLEXIBLE PROXIMAL DIAGNOSTIC Pending Results Name Type Priority Associated Diagnoses Date /Time CLOSTRIDIUM DIFFICILE, PCR Lab Routine Ulcerative colitis without complications, unspecified location (HCC) 12/10/2023 11:39 AM EST GASTROINTESTINAL PATHOGEN PANEL, STOOL Lab Routine Ulcerative colitis without complications, unspecified location (HCC) 12/10/2023 11:39 AM EST GASTROINTESTINAL PATHOGEN PANEL PCR Lab Routine Ulcerative colitis without complications, unspecified location (HCC) 12/10/2023 11:39 AM EST GASTROINTESTINAL PATHOGEN PANEL CULTURE Lab Routine Ulcerative colitis without complications, unspecified location (HCC) 12/10/2023 11:39 AM EST Scheduled Procedures Name Priority Associated Diagnoses [...] Ulcerative colitis, unspecified documented in this encounter Additional Health Concerns Infection Onset Date Last Indicated Resolved Time C. difficile Rule-Out 12/10/2023 12/10/2023 Gastrointestinal Rule-Out 12/10/2023 12/10/2023 documented as of this encounter Care Teams Refuse Collector Relationship Specialty Start Date End Date Jessica Haas PA-C [address] [place], [place] [address] [phone] PCP - General Physician Electrical Engineering Designer 03/09/19 documented as of this encounter
--- OUTSIDE RECORDS SUMMARY | 2023-12-31 13:15 | External Medical Summary ---
Author Name Unknown Address Unknown Organization [id number]:[facility] - [address] [place] [id number] Laboratory Report Ordering Provider Test Date Status AYALA REID 12/10/2023 11:39:20 Final Observation Date Value Abnormality Reference (Units) Status Bacteria identified in Specimen by Culture 12/10/2023 11:39:20 No Aeromonas species or Plesiomonas species isolated. Final Test: Gastrointestinal Patho gen Panel Culture
Specimen Source: Stool
Specimen Type: Stool
Specimen Date: 12/10/2023 11:39 AM
Result Date: 12/13/2023 10:47 AM
Result Status: Final result
Resulting Lab: [facility]
[address]
[place] [address]

CULTURE

No Aeromonas species or Plesiomonas species isolated.

null Performing Location [facility] - [address] [facility] [address]
--- OUTSIDE RECORDS SUMMARY | 2023-12-31 13:15 | External Medical Summary | Summary of Care ---
Author Name Unknown Organization [facility] Address [address] [facility] [place] [address] Phone [phone] Care Team Providers Care Anthropology Lecturer Name Role Phone Jessica Haas PA-C Primary Care Provider Reason for Visit * Reason Onset Date Comments Test Results 12/11/2023 Encounter Details Date Type Department Care Team (Late st Contact Info) Description 12/11/2023 Telephone Gastroenterology, [facility] [address] [place] [address] Angella Cai CRNP [address] [place] [address] Test Results Allergies Active Allergy Reactions Criticality Noted Date Comments Sulfa Antibiotics Rash 01/18/2001 documented as of this encounter (statuses as of 12/11/2023) Medications Medication Sig Dispensed Refills Start Date End Date Status MULTIVITAMIN/MULTIMINERA L PO TABS 1 TABLET DAILY , vitamin with Calcium 0 03/17/2006 Active FOLIC ACID 800 MCG PO TABSIndications:Ulcerati ve proctosigmoiditis (HCC) 1 TABLET DAILY 0 03/17/2006 Active VITAMIN B-12 250 MCG PO TABS 1 tablet a day 0 Active VITAMIN D3 400 UNITS PO TABS 1 tablets daily 0 Active Humira Pen 40 MG/0.8ML Subcutaneous Pen-injector Kit (Adalimumab)Indications: Ulcerative rectosigmoiditis with complication (HCC) Inject 1 pen (40mg) under the skin every 2 weeks. 2 Each 5 08/26/2023 Active Magnesium 200 MG Oral Tablet Chewable Take by mouth. 0 Activ e predniSONE 10 MG Oral Tablet (Deltasone) Taper: 40mg daily x 5 days, 30mg daily x 5 days, 20mg daily x 5 days, 10mg daily x 5 days 50 Tablet 0 12/11/2023 Active documented as of this encounter (statuses as of 12/11/2023) Active Problems Problem Noted Date Diagnosed Date Family history of factor V deficiency 12/27/2013 ADVANCE DIRECTIVE INFORMATION 03/04/2007 Overview: No, Advance Directive brochure offered , patient declined. 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 We changed her from mesalamine to and Azathioprine to Humiragiven her UC wasn't in remission. She shouldn't stop the Humira. If she wants to take her Mesalamines in addition to her Humira untilI see her back in March , that's fine. CAITLIN Gilman * Telephone Encounter - Deann Tate LPN - 12/11/2023 11:10 AM EST [facility] is where she would like her script sent Pt is feeling that her humira is not working, asking to go back on her other medication - stating that she has some left. Pt stating that she is still having 4 or more loose stools/bloody a day. Pt is having nausea, cramping, and night sweats. Angella, please advise. * Telephone Encounter - Deann Tate LPN - 12/11/2023 10:37 AM EST Images from the original note were not included. CAITLIN Ji 12/11/2023 10:12 AM EST Back to Top Stool studies negative for infections, ESR/CRP elevated. Pls call pt and inform her of result. Plan to start her on short course of steroid taper. Ask what pharmacy she use and call in the following: Prednisone 10mg PO. Take 4 tablets by mouth daily x 5 days, 3 tablets by mouth daily x 5 days, 20mg by mouth daily x 5 days, 10mg by mouth daily x 5 days. #50 x 0 refills CAITLIN Gilman Patient Communication Released documented in this encounter Plan of Treatment Upcoming Encounters Date Type Department Care Team (Latest Contact Info) Description 02/15/2024 3:00 PM EDT Office Visit Dermatology [address] [phone] Dominic Lynch PA-C [address] [place] [phone] 03/10/2024 12:30 PM EDT Office Visit Gastroenterology, [facility] [address] [place] [address] Angella Cai CRNP [address] [place] [address] 05/12/2024 9:30 AM EDT Hospital Encounter ENDO [facility], Endoscopy Room [facility] [address] [place] [phone] Tunde Rod MD [address] [place] [address] 05/12/2024 9:30 AM EDT - 05/12/2024 10:00 AM EDT Surgery ENDO [facility], Endoscopy Room [facility] [address] [place] [phone] Tunde Rod MD [address] [place] [address] COLONOSCOPY FLEXIBLE PROXIMAL DIAGNOSTIC Scheduled Procedures Name Priority Associated Diagnoses Date/Ti [...] Not on filedocumented as of this encounter Additional Health Concerns Infection Onset Date Last Indicated Resolved Time Gastrointestinal Rule-Out 12/10/2023 12/10/2023 9:55 AM EST documented as of this encounter Care Teams Anthropology Lecturer Relationship Specialty Start Date End Date Jessica Haas PA-C [address] [place] [address] [place] [phone] PCP - General Physician Manager Asset Management 03/09/19 documented as of this encounter
--- OUTSIDE RECORDS SUMMARY | 2023-12-31 13:15 | External Medical Summary ---
Author Name Unknown Address Unknown Organization K0G:[facility] - [address] [place] [place] [address] Laboratory Report Ordering Provider Test Date Status AYALA REID 12/28/2023 14:23:17 Final Observation Date Value Abnormality Reference (Units ) Status WBC, Total 12/28/2023 14:23:17 8.52 4.00-10.8 0 (K/uL) Final RBC 12/28/2023 14:23:17 4.22 3.85-5.15 (M/uL) Final Hemoglobin 12/28/2023 14:23:17 13.3 12.0-15.3 (g/dL) Final HCT 12/28/2023 14:23:17 41.1 36.0-45.2 (%) Final MCV 12/28/2023 14:23:17 97.4 81.5-97.5 (fL) Final MCH 12/28/2023 14:23:17 31.5 27.0-34.0 (pg) Final MCHC 12/28/2023 14:23:17 32.4 32.0-36.0 (g/dL) Final RDW 12/28/2023 14:23:17 12.2 11.5-15.5 (%) Final Platelets 12/28/2023 14:23:17 408 Above high normal 14 0-400 (K/uL) Final MPV 12/28/2023 14:23:17 9.5 6.6-11.1 ( fL) Final [facility] [address] [place] [address]
--- OUTSIDE RECORDS SUMMARY | 2023-12-31 13:15 | External Medical Summary ---
Author Name Unknown Address Unknown Organization K0G:[facility] - [address] [place] [address] Laboratory Report Ordering Provider Test Date Status JEANETTEAYALA 12/28/2023 14:23:17 Final Observation Date Value Abnormality Reference (Units ) Status Nucleated erythrocytes/100 leukocytes [Ratio] in Blood by Automated count 12/28/2023 14:23:17 Final Performing Location [facility] [address] - [address] [place] [address]
--- OUTSIDE RECORDS SUMMARY | 2023-12-31 13:15 | External Medical Summary | Summary of Care ---
Author Name Unknown Organization [facility] Address [address] [facility] [place] [address] Phone [phone] Care Team Providers Care Training Program Assistant Name Role Phone Jessica Haas PA-C Primary Care Provider Reason for Visit * Reason Onset Date Comments Test Results 12/11/2023 Encounter Details Date Type Department Care Team (Late st Contact Info) Description 12/11/2023 Telephone Gastroenterology, [facility] [address] [place] [address] Angella Aguilera CRNP [address] [place] [address] Test Results Allergies Active Allergy Reactions Criticality [...] as of this encounter Miscellaneous Notes * Telephone Encounter - Deann Tate LPN - 12/11/2023 10:37 AM EST Images from the original note were not included. CAITLIN Gutierrez 12/11/2023 10:12 AM EST Back to Top [...] 02/15/2024 3:00 PM EDT Office Visit Dermatology [facility] [address] [place] [address] Dominic Lynch PA-C [address] [place], [place] [address] [address] 03/10/2024 12:30 PM EDT Office Visit Gastroenterology, [facility] [address] [place] [address] Angella Aguilera CRNP [address] [place] [address] 05/12/2024 9:30 AM EDT Hospital Encounter ENDO [facility], Endoscopy Room [facility] [address] [place] [phone] Tunde Rod MD [address] [place] [address] 05/12/2024 9:30 AM EDT - 05/12/2024 10:00 AM EDT Surgery ENDO [facility], Endoscopy Room [facility] [address] [place] [phone] Tunde Rod MD [address] [place] [address] COLONOSCOPY FLEXIBLE PROXIMAL DIAGNOSTIC Scheduled Procedures Name [...] documented as of this encounter Care Teams Training Program Assistant Relationship Specialty Start Date End Date Jessica Haas PA-C [address] [place] [phone] PCP - General Physician Home Sales Service Professional 03/09/19 documented as of this encounter
--- OUTSIDE RECORDS SUMMARY | 2023-12-31 13:15 | External Medical Summary | Summary of Care ---
Author Name Unknown Organization [facility] Address [address] [facility] [place] [address] Phone [phone] Care Team Providers Care Account Services Manager Name Role Phone Jessica Haas PA-C Primary Care Provider Reason for Visit * Reason Comments Ulcerative Colitis Encounter Details Date Type Department Care Team (Late st Contact Info) Description 12/28/2023 2:00 PM EDT Office Visit Gastroenterology, [facility] [address] [place] [address] Angella Aguilera CRNP [address] [place] [address] Ulcerative colitis with rectal bleeding, unspecified location (HCC)* Allergies Active Allergy Reactions Criticality Noted Date Comments Sulfa Antibiotics Rash 01/18/2001 documented as of this encounter (statuses as of 12/28/2023) Medications Medication Sig Dispensed Refills Start Date End Date Status MULTIVITAMIN/MULTIMINE RAL PO TABS 1 TABLET DAILY , vitamin with Calcium 0 6 Active FOLIC ACID 800 MCG PO TABSIndications:Ulcera tive proctosigmoiditis (HCC) 1 TABLET DAILY 0 6 Active VITAMIN B-12 250 MCG PO TABS 1 tablet a day 0 Active VITAMIN D3 400 UNITS PO TABS 1 tablets daily 0 Active Magnesium 200 MG Oral Tablet Chewable Take by mouth. 0 Activ e Mesalamine 1.2 GM Oral Tablet Delayed Release (Lialda) Take 4 Tablets by mouth in the morning. 120 Tablet 3 4 Active Adalimumab 40 MG/0.8ML Subcutaneous Pen-injector Kit (Humira)Indications:Ul cerative rectosigmoiditis with complication (HCC) Inject 40 mg (1 pen) under the skin every 14 days. 1.6 mL 3 4 Active Dicyclomine HCl 10 MG Oral Capsule (Bentyl) Take 1 Capsule by mouth 2 times a day as needed for Cramping. 60 Capsule 2 4 Active Additional Information Patient not taking.Reported on 12/28/2023 Ondansetron HCl 4 MG Oral Tablet (Zofran) Take 1 Tablet by mouth every 8 hours as needed for Nausea. 30 Tablet 1 4 Active Additional Information Patient not taking.Reported on 12/28/2023 predniSONE 10 MG Oral Tablet (Deltasone) Taper: 60mg daily x 5 days, 50mg daily x 5 days, 40mg daily x 5 days, 30mg daily x 5 days, 20mg daily x 5 days, 10mg daily x 5 days 105 Tablet 0 4 Active azaTHIOprine 50 MG Oral Tablet (Imuran) Take 3 Tablets by mouth in the morning. 90 Tablet 2 4 Active predniSONE 10 MG Oral Tablet (Deltasone) Taper: 40mg daily x 5 days, 30mg daily x 5 days, 20mg daily x 5 days, 10mg daily x 5 days 50 Tablet 0 4 12/28/19 24 Discontinu ed(Refill) documented as of this encounter (statuses as of 12/28/2023) Active Problems Problem Noted Date Diagnosed Date Family history of factor V deficiency 12/27/2013 ADVANCE DIRECTIVE INFORMATION 03/04/2007 Overview: No, Advance Directive brochure offered , patient declined. 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 documented as of this encounter (statuses as of 12/28/2023) Immunizations Name Administration Dates Next Due Seasonal [...] on file documented as of this encounter Last Filed Vital Signs Vital Sign Reading Time Taken Comments Blood Pressure 131/82 12/28/2023 1:59 PM EDT Pulse 107 12/28/2023 1:59 PM EDT Temperature 36.6 C (97.9 F) 12/28/2023 1:59 PM ED T Respiratory Rate - - Oxygen Saturation - - Inhaled Oxygen Concentration - - Weight 71.3 kg (157 lb 3.2 oz) 12/28/2023 1:59 P M EDT Height - - Body Mass Index 25.37 11/24/2023 11:48 AM EST documented in this encounter Progress Notes * Angella Aguilera CRNP - 12/28/2023 2:24 PM EDT DATE OF SERVICE: 12/28/23 REFERRING PHYSICIAN: Jessica Tran PA-C CC: Ulcerative colitis HPI: 12/28/23: Pt started having flare symptoms with bloody diarrhea, cramping, nausea on 12/09. Stool studies negative for infections. ESR, CRP are elevated. She completed 1 round of prednisone taper but symptoms did not get much better. She is currently having already 13 bloody bowel movements this morning. Nausea but no vomiting, no fevers or chills. Nausea went away with each bowel movement. Little appetite. Next Humira injection due in 2 days' time. 11/24/23: She started Humira 10/2023. Notices less mucus with stools. Otherwise still quite asymptomatic for abd pain/cramping, n/v. No diarrhea. Last Humira injection 11/18/2023 08/06/23: Pt recently had surveillance colonoscopy which showed L active colitis w crypt abscess. She reports being compliant with her meds, never missed doses. Denies flare symptoms. BM once daily, no rectal bleeding, cramping. 02/19/2023: Yelena Orozco is a 47 year old female here for follow-up ulcerative colitis. She is been on mesalamine 4.8 g daily plus azathioprine 150 mg daily. So far doing very well on this regimen.She is having once daily bowel movement with formed stools. Denies any symptoms such as fevers, chills, chest pain, shortness of breath, abdominal pain, nausea or vomiting, bloating, rectal bleeding or dark tarry stools. She does note that for many years she is had warts that intermittently comes and goes on her hands. The warts seem to now be spreading towards her wrist and the other day she noticed that it is also on her face. Lesions are not painful or itchy but she picks on them. Colonoscopy 06/2023: - The examined portion of the ileum was normal. - Three 4 to 8 mm polyps in the ascending colon, removed with a cold snare. Resected and retrieved. - Scarred mucosa in the sigmoid colon. - Internal hemorrhoids. - Biopsies for surveillance were taken from the entire colon. A. Colon, ascending colon polyps, polypectomy: Tubular adenoma and hyperplastic polyp, multiple fragments. B. Colon, Right colon, biopsy: Colonic mucosa with no significant pathologic change. C. Colon, Left colon, biopsy: Chronic active colitis, moderate activity with crypt abscess. Negative for granuloma or dysplasia. Past Medical History: Diagnosis Date Benign neoplasm of colon 04/19/2014 adenomatous polyp, repeat 2 yrs Ulcerative colitis, unspecified Ulcerative Colitis Family History Problem Relation Age of Onset Endocrine Disorder Sister thyroid - on medication Breast Cancer Grandmother (Maternal) Past Surgical History: Procedure Laterality Date COLONOSCOPY, DIAGNOSTIC (RECTUM) 02/11/2012 COLONOSCOPY FLEXIBLE PROXIMAL DIAGNOSTIC performed by ANDREI GONZALEZ at [facility] COLONOSCOPY, DIAGNOSTIC (RECTUM) 02/14/2013 COLONOSCOPY FLEXIBLE PROXIMAL DIAGNOSTIC performed by Andrei Gonzalez DO at [facility] COLONOSCOPY, DIAGNOSTIC (RECTUM) 04/19/2014 adenomatous polyp, ulcerative colitis, repeat 2 yrs COLONOSCOPY, DIAGNOSTIC (RECTUM) 06/04/2016 chronic colitis/COLONOSCOPY FLEXIBLE PROXIMAL DIAGNOSTIC performed by Tunde Rod MD at ENDOSCOPY [facility] COLONOSCOPY, DIAGNOSTIC (RECTUM) 04/28/2018 active colitis, adenomatous polyp/COLONOSCOPY FLEXIBLE PROXIMAL DIAGNOSTIC performed by Tunde Rod MD at ENDOSCOPY [facility] COLONOSCOPY, DIAGNOSTIC (RECTUM) 04/19/2014 COLONOSCOPY FLEXIBLE PROXIMAL DIAGNOSTIC performed by Tunde Rod MD at ENDOSCOPY [facility] COLONOSCOPY, DIAGNOSTIC (RECTUM) 02/27/2021 diverticulosis in sigmoid colon, internal hemorrhoidsm, inactive (Frank Score 0) Ulcerative colitis / biopsies no significant pathology and require no further endoscopic evaluation / recall 2 year / COLONOSCOPY FLEXIBLE PROXIMAL DIAGNOSTIC performed by Tunde Rod MD at ENDOSCOPY [facility] COLONOSCOPY, DIAGNOSTIC (RECTUM) 06/23/2023 COLONOSCOPY FLEXIBLE PROXIMAL DIAGNOSTIC performed by Tunde Rod MD at ENDOSCOPY [facility] Social History Tobacco Use Smoking status: Never Smokeless tobacco: Never Vaping Use Vaping Use: Never used Substance Use Topics Alcohol use: No Drug use: No Review of patient's allergies indicates: Allergen Reactions Sulfa Antibiotics Rash Current Outpatient Medications Medication Sig Dispense Refill MULTIVITAMIN/MULTIMINERAL PO TABS 1 TABLET DAILY , vitamin with Calcium 0 FOLIC ACID 800 MCG PO TABS 1 TABLET DAILY 0 VITAMIN B-12 250 MCG PO TABS 1 tablet a day VITAMIN D3 400 UNITS PO TABS 1 tablets daily Mesalamine 1.2 GM Oral Tablet Delayed Release (Lialda) Take 4 Tablets by mouth in the morning. 120 Tablet 3 Adalimumab 40 MG/0.8ML Subcutaneous Pen-injector Kit (Humira) Inject 40 mg (1 pen) under the skin every 14 days. 1.6 mL 3 predniSONE 10 MG Oral Tablet (Deltasone) Taper: 60mg daily x 5 days, 50mg daily x 5 days, 40mg daily x 5 days, 30mg daily x 5 days, 20mg daily x 5 days, 10mg daily x 5 days 105 Tablet 0 azaTHIOprine 50 MG Oral Tablet (Imuran) Take 3 Tablets by mouth in the morning. 90 Tablet 2 Magnesium 200 MG Oral Tablet Chewable Take by mouth. (Patient not taking: Reported on 12/28/2023) Dicyclomine HCl 10 MG Oral Capsule (Bentyl) Take 1 Capsule by mouth 2 times a day as needed for Cramping. (Patient not taking: Reported on 12/28/2023) 60 Capsule 2 Ondansetron HCl 4 MG Oral Tablet (Zofran) Take 1 Tablet by mouth every 8 hours as needed for Nausea. (Patient not taking: Reported on 12/28/2023) 30 Tablet 1 No current facility-administered medications for this visit. REVIEW OF SYSTEMS: See HPI above; All other findings negative. EXAM: Filed Vitals: 12/28/23 1359 BP: 131/82 Pulse: 107 Temp: 36.6 C (97.9 F) Weight: 71.3 kg (157 lb 3.2 oz) GENERAL: Well developed and well nourished in no acute distress. SKIN: No rashes, ulcers, jaundice or spider angiomata. HEENT: Normocephalic, sclera clear. NECK: Supple,trachea midline, no JVD. LUNGS: No respiratory distress or accessory muscles used. EXTREMITIES: No palmar erythema, no ankle edema, no skin discoloration, no clubbing, no cyanosis. NEURO: No lateralizing findings. Sensory/Motor grossly normal. ASSESSMENT AND PLAN: Yelena Orozco is a 48 year old female w Ulcerative colitis previously maintained on Mesalamine + Azathioprine, wo concerning flare symptoms. However has L colon active colitis noted on recent surveillance colonoscopy. She is finally agreeable to start Humira, first induction dose 10/2023. Started having flare symptoms 12/09. Stool studies negative for infections. - Recommended hospital admission for IV steroids to manage UC flare, however pt refused at this time. Wants to continue outpt management - Declined antiemetics and antispasmodics - Labs: Erythrocyte sedimentation rate (esr) Crp (inflammatory marker) Adalimumab level and anti-drug antibody Cbc with wbc differential Comprehensive metabolic panel - Increase Prednisone taper dose beginning at 60mg daily. - Restarted Mesalamine 4.8g daily, added back Azathioprine 150mg daily. - Continue Humira 40mg injection every 2 weeks - Colonoscopy 05/12/2024 - TB quant gold negative; she is not immune to Hep B. She is advised to start Hep B series, but would like to review more information about this vaccine. Pt education handout previously given. She can schedule vaccinations via PCP's office or ours. - Yearly flu vaccine and COVID vaccine/booster recommended - Recommended to also keep up with age related health screening. I spent a total of 30 minutes on the date of service in review of patient's record, and previously obtained information in person and appropriate medical visit, discussion and education of plan, withpatient and/or caregiver, placing orders for tests/referral/procedures as medically necessary and documentation of pertinent clinical information in patient's medical records for their visit today. RETURN TO CLINIC: Has appt 03/10/2024 [facility], Kamille Navarro documented in this encounter Nursing Notes * Di Panda, RN - 12/28/2023 2:01 PM EDT Pt here for UC flare. C/o intermittent abd pain. C/o diarrhea. Says she has gone 13 times today. +blood. Pt is on humira. Next dose due thu. Also taking Lialda. Currently on prednisone 40 mg which she started on . Says "this is my second round of steroids." documented in this encounter Plan of Treatment Upcoming Encounters Date Type Department Care Team (Latest Contact Info) Description 02/15/2024 3:00 PM EDT Office Visit Dermatology [facility] [address] [place] [address] Dominic Lynch PA-C [address] [place] [address] 03/10/2024 12:30 PM EDT Office Visit Gastroenterology, [facility] [address] [place] [address] Angella Aguilera CRNP [address] [place] [address] 05/12/2024 9:30 AM EDT Hospital Encounter ENDO [facility], Endoscopy Room [facility] [address] [place] [phone] Tunde Rod MD [address] [place] [address] 05/12/2024 9:30 AM EDT - 05/12/2024 10:00 AM EDT Surgery ENDO [facility], Endoscopy Room [facility] [address] [place] [phone] Tunde Rod MD [address] [place] [address] COLONOSCOPY FLEXIBLE PROXIMAL DIAGNOSTIC 05/31/2024 8:15 AM EDT Office Visit Gynecology/Obstetic s [place] [address] [place] [address] Shirley Jung PA-C [address] [place] [address] Pending Results Name Type Priority Associated Diagnoses Date /Time ERYTHROCYTE SEDIMENTATION RATE (ESR) Lab Routine Ulcerative colitis with rectal bleeding, unspecified location (HCC) 12/28/2023 2:23 PM EDT CRP (INFLAMMATORY MARKER) Lab Routine Ulcerative colitis with rectal bleeding, unspecified location (HCC) 12/28/2023 2:23 PM EDT ADALIMUMAB LEVEL AND ANTI-DRUG ANTIBODY Lab Routine Ulcerative colitis with rectal bleeding, unspecified location (HCC) 12/28/2023 2:23 PM EDT CBC WITH WBC DIFFERENTIAL Lab Routine Ulcerative colitis with rectal bleeding, unspecified location (HCC) 12/28/2023 2:23 PM EDT COMPREHENSIVE METABOLIC PANEL Lab Routine Ulcerative colitis with rectal bleeding, unspecified location (HCC) 12/28/2023 2:23 PM EDT Scheduled Orders Name Type Priority Associated Diagnoses Orde r Schedule ERYTHROCYTE SEDIMENTATION RATE (ESR) Lab Routine Ulcerative colitis with rectal bleeding, unspecified location (HCC) Expected: 12/28/2023, Expires: 12/27/2024 CRP (INFLAMMATORY MARKER) Lab Routine Ulcerative colitis with rectal bleeding, unspecified location (HCC) Expected: 12/28/2023, Expires: 12/27/2024 ADALIMUMAB LEVEL AND ANTI-DRUG ANTIBODY Lab Routine Ulcerative colitis with rectal bleeding, unspecified location (HCC) Expected: 12/28/2023, Expires: 12/27/2024 CBC WITH WBC DIFFERENTIAL Lab Routine Ulcerative colitis with rectal bleeding, unspecified location (HCC) Expected: 12/28/2023, Expires: 12/27/2024 COMPREHENSIVE METABOLIC PANEL Lab Routine Ulcerative colitis with rectal bleeding, unspecified location (HCC) Expected: 12/28/2023, Expires: 12/27/2024 Scheduled Procedures Name Priority Associated Diagnoses Date/Ti [...] this encounter Visit Diagnoses Diagnosis Ulcerative colitis with rectal bleeding, unspecified location (HCC)- Primary Ulcerative colitis (HCC) Ulcerative colitis, unspecified documented in this encounter Care Teams Account Services Manager Relationship Specialty Start Date End Date Jessica Haas PA-C [address] [place] [phone] PCP - General Physician Concrete Block Plant Supervisor 03/09/19 documented as of this encounter
--- OUTSIDE RECORDS SUMMARY | 2023-12-31 13:15 | External Medical Summary | Summary of Care ---
Author Name Unknown Organization [facility] Address [address] [facility] [place] [address] Phone [phone] Care Team Providers Care Supervisor Propellant Charge Loading Name Role Phone Jessica Haas PA-C Primary Care Provider Reason for Visit * Reason Onset Date Comments Test Results 12/11/2023 Encounter Details Date Type Department Care Team (Late st Contact Info) Description 12/11/2023 Telephone Gastroenterology, [facility] [address] [place] [address] Angella Aguilera CRNP [address] [place] [address] Test Results Allergies Active Allergy Reactions Criticality [...] - 12/11/2023 11:10 AM EST [facility] is where she would like her [...] 3:00 PM EDT Office Visit Dermatology [facility] [address] [place] [phone] Dominic Lynch PA-C [address] [place] [address] 03/10/2024 12:30 PM EDT Office Visit Gastroenterology, [facility] [address] [place] [address] Angella Aguilera CRNP [address] [place] [address] 05/12/2024 9:30 AM EDT Hospital Encounter ENDO [facility], Endoscopy Room [facility] [address] [place] [phone] Tunde Rod MD [address] [place] [address] 05/12/2024 9:30 AM EDT - 05/12/2024 10:00 AM EDT Surgery ENDO [facility], Endoscopy Room [facility] [address] [place] [phone] Tunde Rod MD [address] [place] [address] COLONOSCOPY FLEXIBLE PROXIMAL DIAGNOSTIC Scheduled Procedures Name [...] documented as of this encounter Care Teams Supervisor Propellant Charge Loading Relationship Specialty Start Date End Date Jessica Haas PA-C [address] [place] [address] [place] [phone] PCP - General Physician Director Of Pupil Personnel Program 03/09/19 documented as of this encounter
--- OUTSIDE RECORDS SUMMARY | 2023-12-31 13:15 | External Medical Summary | Summary of Care ---
Author Name Unknown Organization [facility] Address [address] [facility] [place] [address] Phone [phone] Care Team Providers Care Service Officer Name Role Phone Jessica Haas PA-C Primary Care Provider Reason for Visit * Reason Onset Date Comments Test Results 12/11/2023 Encounter Details Date Type Department Care Team (Late st Contact Info) Description 12/11/2023 Telephone Gastroenterology, [facility] [address] [place] [address] Angella Cai CRNP [address] [place] [address] Test Results Allergies Active Allergy Reactions Criticality [...] Encounter - Deann Tate LPN - 12/11/2023 2:43 PM EST Angella, pt asking to clarify medication doses that she can take til March appt , stating that she will not have enough of her mesalamine til March appt. ( Should she take 4 tablets daily still? She only has approx 15 days left ) and will continue the humira. Pt did garbage pick up man the steroid already Please advise * Addendum Note - Angella Cai CRNP [...] - 12/11/2023 11:10 AM EST [facility] is where she would like her [...] 02/15/2024 3:00 PM EDT Office Visit Dermatology [facility] [address] [place] [phone] Dominic Lynch PA-C [address] [place] [address] 03/10/2024 12:30 PM EDT Office Visit Gastroenterology, [facility] [address] [place] [address] Angella Cai CRNP [address] [place] [address] 05/12/2024 9:30 AM EDT Hospital Encounter [facility]O [facility], Endoscopy Room [facility] [address] [place] [phone] Tunde Rod MD [address] [place] [address] 05/12/2024 9:30 AM EDT - 05/12/2024 10:00 AM EDT Surgery [facility]O [facility], Endoscopy Room [facility] [address] [place] [phone] Tunde Rod MD [address] [place] [address] COLONOSCOPY FLEXIBLE PROXIMAL DIAGNOSTIC Scheduled Procedures Name [...] documented as of this encounter Care Teams Service Officer Relationship Specialty Start Date End Date Jessica Haas PA-C [address] [place], [place] [address] [phone] PCP - General Physician Personal Fitness Manager 03/09/19 documented as of this encounter
--- OUTSIDE RECORDS SUMMARY | 2023-12-31 13:15 | External Medical Summary ---
Author Name Unknown Address Unknown Organization [id number]:LABORATORY [facility] - [facility] [address] [facility] [address] [facility] [address] Laboratory Report Ordering Provider Test Date Status AYALA REID 12/10/2023 11:39:20 Final Observation Date Value Abnormality Reference (Units ) Status Campylobacter sp DNA.diarrheagenic [Presence] in Stool by ENOC with probe detection 12/10/2023 11:39:20 Negative Negative Final Salmonella sp rpoD gene [Presence] in Stool by ENOC with probe detection 12/10/2023 11:39:20 Negative Negative Final Shigella species+EIEC invasion plasmid antigen H ipaH gene [Presence] in Stool by ENOC with probe detection 12/10/2023 11:39:20 Negative Negative Final Vibrio sp DNA [Identifier] in Specimen by ENOC with probe detection 12/10/2023 11:39:20 Negative Negative Final Yersinia enterocolitica recN gene [Presence] in Stool by ENOC with probe detection 12/10/2023 11:39:20 Negative Negative Final Escherichia coli Stx1 toxin stx1 gene [Presence] in Stool by ENOC with probe detection 12/10/2023 11:39:20 Negative Negative Final Escherichia coli Stx2 toxin stx2 gene [Presence] in Stool by ENOC with probe detection 12/10/2023 11:39:20 Negative Negative Final Norovirus genogroups I and II RNA panel - Stool by ENOC with probe detection 12/10/2023 11:39:20 Negative Negative Final Rotavirus A RNA [Presence] in Stool by ENOC with probe detection 12/10/2023 11:39:20 Negative Negative Final Performing Location LABORATORY [facility] - [facility] [address] [facility] [address]
--- OUTSIDE RECORDS SUMMARY | 2023-12-31 13:15 | External Medical Summary ---
Author Name Unknown Address Unknown Organization [id number]:[facility]ORY [facility] [address] [place] [id number] Laboratory Report Ordering Provider Test Date Status AYALA REID 12/28/2023 14:23:17 Final Observation Date Value Abnormality Reference (Units ) Status BUN 12/28/2023 14:23:17 13 6-20 (mg/dL) Final Creatinine 12/28/2023 14:23:17 0.9 0.5-1.0 (mg/dL) Final Glomerular filtration rate/1.73 sq M.predicted [Volume Rate/Area] in Serum, Plasma or Blood by Creatinine-based formula (CKD-EPI) 12/28/2023 14:23:17 82 >=60 (mL/min) Final eGFR is calculated based on the CKD-EPI 2020 equation Sodium 12/28/2023 14:23:17 139 135-146 (m mol/L) Final Potassium 12/28/2023 14:23:17 4.2 3.5-5.1 (m mol/L) Final Cl 12/28/2023 14:23:17 103 98-107 (mm ol/L) Final CO2 12/28/2023 14:23:17 23 22-32 (mmo l/L) Final Anion gap 12/28/2023 14:23:17 13 7-15 (mmol /L) Final Glucose 12/28/2023 14:23:17 139 Above high normal 70 -120 (mg/dL) Final Albumin 12/28/2023 14:23:17 3.8 3.8-5.0 (g /dL) Final AST (Aspartate aminotransferase) 12/28/2023 14:23:17 11 10-35 (U/L) Fin al Alk Phos 12/28/2023 14:23:17 92 35-130 (U/ L) Final Bilirubin, Total 12/28/2023 14:23:17 0.3 <=1 .2 (mg/dL) Final Calcium 12/28/2023 14:23:17 9.4 8.4-10.2 ( mg/dL) Final Protein 12/28/2023 14:23:17 6.8 6.0-8.3 (g /dL) Final ALT (Alanine aminotransferase) 12/28/2023 14:23:17 17 10-35 (U/L) Curtis garibay Performing Location LABORATORY [place] [address] [facility] [address]
--- OUTSIDE RECORDS SUMMARY | 2023-12-31 13:15 | External Medical Summary | Summary of Care ---
Author Name Unknown Organization [facility] Address [address] [place] [address] Phone [phone] Care Team Providers Care Final Touch Up Painter Name Role Phone Jessica Haas PA-C Primary Care Provider Reason for Visit * Reason Onset Date Comments Advice 12/08/2023 Encounter Details Date Type Department Care Team (Late st Contact Info) Description 12/08/2023 Telephone Gastroenterology, [facility] 132 [facility] [place] [address] Services, Scheduling [address] [place] [address] Advice Allergies Active Allergy Reactions Criticality Noted Date [...] Addendum Note - Angella Cai CRNP - 12/09/2023 4:01 PM ESTAddended by: ANGELLA CAI on: 12/09/2023 04:01 PM Modules accepted: Orders * Telephone Encounter - Angella Cai CRNP - 12/09/2023 4:00 PM EST Suspect infectious process rather than IBD flare. I signed ESR/CRP, stool cx and Cdiff. Added CBC [facility] Gilman * Addendum Note - Trang Cheek RN - 12/09/2023 3:15 PM ESTAddended by: TRANG CHEEK on: 12/09/2023 03:15 PM Modules accepted: Orders * Telephone Encounter - Trang Cheek RN - 12/09/2023 3:09 PM EST I called and spoke with the patient. She states, " Thursday I had diarrhea and I had blood in it and I thought it was something I ate, because my did not feel good either...today is the firstday I have started to feel better. Yesterday I was nauseas all day, I had diarrhea about 8 times and there was blood... I am so frustrated because I this is the first time I have flared in a long time and I didn't want to switch to Humira." She states she is due 12/16/23 for her next Humira shot. Denies any fevers or increased joint pain. No vomiting, just nausea. Since Thursday, she has been eating very little. Drinks "quite a bit of water." Flare labs placed. Angella- any further orders or advice? * Telephone Encounter - Lianne Barajas OSA - 12/09/2023 2:48 PM EST Pt calling in RE [employer] message. Pt states she is now unable to get into her chart so she is unable tosee her message. Pt would like a call back. Thanks * Telephone Encounter - Trang Cheek RN - 12/09/2023 1:15 PM EST I left a detailed message for the patient to return my call or to send a [employer] message to detail her flare. * Telephone Encounter - Consuelo Chadwick OSA - 12/08/2023 12:23 PM EST Pt called in stating that she started taking Humira on 10/07/23.. she took her most recent dose this past Thursday. On Thursday the pt experienced diarrhea with blood, and thinks it has to do with themedication. Please advise? documented in this encounter Plan of Treatment Upcoming Encounters Date Type Department Care Team (Latest Contact Info) Description 02/15/2024 3:00 PM EDT Office Visit Dermatology [facility] [address] [place] [address] Dominic Lynch PA-C [address] [place] [address] 03/10/2024 12:30 PM EDT Office Visit Gastroenterology, [facility] [address] [place] [address] Angella Cai CRNP [address] [place] [address] 05/12/2024 9:30 AM EDT Hospital Encounter ENDO OSSC, Endoscopy Room [facility] [address] [place] [phone] Tunde Rod MD [address] [place] [address] 05/12/2024 9:30 AM EDT - 05/12/2024 10:00 AM EDT Surgery ENDO OSSC, Endoscopy Room [facility] [address] [place] [phone] Tunde Rod MD [address] [place] [address] COLONOSCOPY FLEXIBLE PROXIMAL DIAGNOSTIC Pending Results Name Type Priority Associated Diagnoses Date /Time ERYTHROCYTE SEDIMENTATION RATE (ESR) Lab Routine Ulcerative colitis without complications, unspecified location (HCC) 12/09/2023 3:55 PM EST CRP (INFLAMMATORY MARKER) Lab Routine Ulcerative colitis without complications, unspecified location (HCC) 12/09/2023 3:55 PM EST Scheduled Orders Name Type Priority Associated Diagnoses Orde r Schedule ERYTHROCYTE SEDIMENTATION RATE (ESR) Lab Routine Ulcerative colitis without complications, unspecified location (HCC) Expected: 12/09/2023, Expires: 12/08/2024 CRP (INFLAMMATORY MARKER) Lab Routine Ulcerative colitis without complications, unspecified location (HCC) Expected: 12/09/2023, Expires: 12/08/2024 CLOSTRIDIUM DIFFICILE, PCR Lab Routine Ulcerative colitis without complications, unspecified location (HCC) Expected: 12/09/2023, Expires: 12/08/2024 GASTROINTESTINAL PATHOGEN PANEL, STOOL Lab Routine Ulcerative colitis without complications, unspecified location (HCC) Expected: 12/09/2023, Expires: 12/08/2024 CBC Lab Routine Ulcerative colitis without complications, unspecified location (HCC) Expected: 12/09/2023, Expires: 12/08/2024 Scheduled Procedures Name Priority Associated Diagnoses Date/Ti [...] Diagnosis Ulcerative colitis without complications, unspecified location (HCC)- Primary Ulcerative colitis (HCC) Ulcerative colitis, unspecified documented in this encounter Care Teams Final Touch Up Painter Relationship Specialty Start Date End Date Jessica Haas PA-C [address] [place] [address] [place] [address] PCP - General Physician Air Conditioning Technician 03/09/19 documented as of this encounter
--- OUTSIDE RECORDS SUMMARY | 2023-12-31 13:15 | External Medical Summary ---
Author Name Unknown Address Unknown Organization K01:[facility] [address] [facility] [address] Laboratory Report Ordering Provider Test Date Status AYALA REID 12/28/2023 14:23:17 Final Observation Date Value Abnormality Reference (Units ) Status CRP, low-sensitivity 12/28/2023 14:23:17 18 Above high normal <=5 (mg/L) Final Performing Location LABORATORY [facility] - [address] [facility] [address]
--- OUTSIDE RECORDS SUMMARY | 2023-12-31 13:15 | External Medical Summary | Summary of Care ---
Author Name Unknown Organization [facility] Address [address] [facility] [place] [address] Phone [phone] Care Team Providers Care Hardware Design Engineer Name Role Phone Jessica Haas PA-C Primary Care Provider Reason for Visit * Reason Onset Date Comments Test Results 12/11/2023 Encounter Details Date Type Department Care Team (Late st Contact Info) Description 12/11/2023 Telephone Gastroenterology, [facility] [address] [place] [address] Angella Cai CRNP [address] [place] [address] Test Results Allergies Active Allergy Reactions Criticality Noted Date Comments Sulfa Antibiotics Rash 01/18/2001 documented as of this encounter (statuses as of 12/14/2023) Medications Medication Sig Dispensed Refills Start Date [...] Oral Tablet Chewable Take by mouth. 0 Active predniSONE 10 MG Oral Tablet (Deltasone) Taper: 40mg daily x 5 days, 30mg daily x 5 days, 20mg daily x 5 days, 10mg daily x 5 days 50 Tablet 0 12/11/2023 Active Mesalamine 1.2 GM Oral Tablet Delayed Release (Lialda) Take 4 Tablets by mouth in the morning. 120 Tablet 3 12/14/2023 Active documented as of this encounter (statuses as of 12/14/2023) Active Problems Problem Noted Date Diagnosed Date Family history of factor V deficiency 12/27/2013 ADVANCE DIRECTIVE INFORMATION 03/04/2007 Overview: No, Advance Directive brochure offered , patient declined. 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 * Addendum Note - Angella Cai CRNP - 12/14/2023 11:30 AM EDTAddended by: ANGELLA CAI on: 12/14/2023 11:30 AM Modules accepted: Orders * Telephone Encounter - Angella Cai CRNP - 12/14/2023 11:30 AM EDT She should take Mesalamine 4.8g daily. I sent refills to [facility] * Telephone Encounter - Deann Tate LPN - 12/11/2023 2:43 PM EST Angella, pt asking to clarify medication doses that she can take til March appt , stating that she will not have enough of her mesalamine til March appt. ( Should she take 4 tablets daily still? She only has approx 15 days left ) and will continue the humira. Pt did picker tender the steroid already Please advise * Addendum [...] - 12/11/2023 11:10 AM EST [facility] is where she would like her [...] 3:00 PM EDT Office Visit Dermatology [facility] [address] [place] [address] Dominic Lynch PA-C [address] [place] [address] 03/10/2024 12:30 PM EDT Office Visit Gastroenterology, [facility] 132 [facility] [place] [address] Angella Cai CRNP 132 [facility] [place] [address] 05/12/2024 9:30 AM EDT Hospital Encounter ENDO OSS, Endoscopy Room [facility] [address] [place] [address] Tunde Rod MD [address] [place] [address] 05/12/2024 9:30 AM EDT - 05/12/2024 10:00 AM EDT Surgery ENDO [facility], Endoscopy Room [facility] [address] [place] [phone] Tunde Rod MD [address] [place] [address] COLONOSCOPY FLEXIBLE PROXIMAL DIAGNOSTIC 05/31/2024 8:15 AM EDT Office Visit Gynecology/Obstetic s [place] [address] [place] [address] Shirley Jung PA-C [address] [place] [address] Scheduled Procedures Name Priority Associated Diagnoses Date/Ti [...] documented as of this encounter Care Teams Hardware Design Engineer Relationship Specialty Start Date End Date Jessica Haas PA-C [address] [place], [place] [address] [phone] PCP - General Physician Medical Editor 03/09/19 documented as of this encounter
--- OUTSIDE RECORDS SUMMARY | 2023-12-31 13:15 | External Medical Summary | Summary of Care ---
Author Name Unknown Organization [facility] Address [address] [place] [address] Phone [phone] Care Team Providers Care Telephone Maintenance Mechanic Name Role Phone Jessica Haas PA-C Primary Care Provider Reason for Visit * Reason Onset Date Comments Medication Refill 12/21/2023 Encounter Details Date Type Department Care Team (Late st Contact Info) Description [facility] [address] [place] [address] Angella Aguilera CRNP [address] [place] [address] Ulcerative rectosigmoiditis with complication (HCC) Allergies Active Allergy Reactions Criticality Noted Date Comments Sulfa Antibiotics Rash 01/18/2001 documented as of this encounter (statuses as of 12/21/2023) Medications Medication Sig Dispensed Refills Start Date End Date Status MULTIVITAMIN/MULTIMINE RAL PO TABS 1 TABLET DAILY , vitamin with Calcium 0 03/17/2006 Active FOLIC ACID 800 MCG PO TABSIndications:Ulcera tive proctosigmoiditis (HCC) 1 TABLET DAILY 0 03/17/2006 [...] the morning. 120 Tablet 3 12/14/2023 Active Adalimumab 40 MG/0.8ML Subcutaneous Pen-injector KitIndications:Ulcerat maico rectosigmoiditis with complication (HCC) Inject 40 mg under the skin every 14 days. 1.6 mL 3 12/21/2023 Active Humira Pen 40 MG/0.8ML Subcutaneous Pen-injector Kit (Adalimumab)Indication s:Ulcerative rectosigmoiditis with complication (HCC) Inject 1 pen (40mg) under the skin every 2 weeks. 2 Each 5 08/26/2023 Discontinue d(Refill) documented as of this encounter (statuses as of 12/21/2023) Active Problems Problem Noted Date Diagnosed Date Family history of factor V deficiency 12/27/2013 ADVANCE DIRECTIVE INFORMATION 03/04/2007 Overview: No, Advance Directive brochure offered , patient declined. 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 documented as of this encounter (statuses as of 12/21/2023) Immunizations Name Administration Dates Next Due Seasonal [...] encounter Miscellaneous Notes * Telephone Encounter - Yari Mcdaniel [facility] - 12/21/2023 9:18 AM EDT Reissuing Humira script due to system glitch Yari Sales, PharmD Clinical Pharmacist [facility] 12/21/2023, 9:18 AM documented in this encounter Plan of Treatment Upcoming Encounters Date Type Department Care Team (Latest Contact Info) Description 02/15/2024 3:00 PM EDT Office Visit Dermatology [facility] 68 [facility] [place] [phone] Dominic Lynch PA-C [facility] [place] [phone] 03/10/2024 12:30 PM EDT Office Visit Gastroenterology, [facility] [address] [place] [address] Angella Aguilera CRNP [address] [place] [address] 05/12/2024 9:30 AM EDT Hospital Encounter ENDO OSSC, Endoscopy Room [facility] [address] [place] [phone] Tunde Rod MD [address] [place] [address] 05/12/2024 9:30 AM EDT - 05/12/2024 10:00 AM EDT Surgery ENDO [facility], Endoscopy Room [facility] [address] [place] [phone] Tunde Rod MD [address] [place] [address] COLONOSCOPY FLEXIBLE PROXIMAL DIAGNOSTIC 05/31/2024 8:15 AM EDT Office Visit Gynecology/Obstetic s [place] [facility] [place] [phone] Shirley Jung [facility]C [facility] [phone] Scheduled Procedures Name Priority Associated Diagnoses Date/Ti [...] of this encounter Visit Diagnoses Diagnosis Ulcerative rectosigmoiditis with complication (HCC) Ulcerative colitis (HCC) Ulcerative colitis, unspecified documented in this encounter Care Teams Telephone Maintenance Mechanic Relationship Specialty Start Date End Date Jessica Haas PA-C [address] [place] [address] PCP - General Physician Mail Order Sorter 03/09/19 documented as of this encounter
--- OUTSIDE RECORDS SUMMARY | 2023-12-31 13:15 | External Medical Summary | Summary of Care ---
Author Name Unknown Organization [facility] Address [address] [facility] [place] [address] Phone [phone] Care Team Providers Care Investments Manager Name Role Phone Jessica Haas PA-C Primary Care Provider Reason for Visit * Reason Onset Date Comments Test Results 12/11/2023 Encounter Details Date Type Department Care Team (Late st Contact Info) Description 12/11/2023 Telephone Gastroenterology, [facility] [address] [place] [address] Angella Aguilera CRNP [address] [place] [address] Test Results Allergies Active Allergy Reactions Criticality [...] 02/15/2024 3:00 PM EDT Office Visit Dermatology [facility] [address] [place] [address] Dominic Lynch PA-C [address] [place], [place] [address] [address] 03/10/2024 12:30 PM EDT Office Visit Gastroenterology, [facility] [address] [place] [address] Angella Aguilera CRNP [address] [place] [address] 05/12/2024 9:30 AM EDT Hospital Encounter ENDO OSSC, Endoscopy Room [facility] [address] [place] [phone] Tunde Rod MD [address] [place] [address] 05/12/2024 9:30 AM EDT - 05/12/2024 10:00 AM EDT Surgery ENDO OSSC, Endoscopy Room [facility] [address] [place] [phone] Tunde Rod MD [address] [place] [address] COLONOSCOPY FLEXIBLE PROXIMAL DIAGNOSTIC Scheduled Procedures Name [...] documented as of this encounter Care Teams Investments Manager Relationship Specialty Start Date End Date Jessica Haas PA-C [address] [place] [address] PCP - General Physician Topstitcher Lockstitch 03/09/19 documented as of this encounter
--- OUTSIDE RECORDS SUMMARY | 2023-12-31 13:15 | External Medical Summary ---
Author Name Unknown Address Unknown Organization K01:LABORATORY [facility] - [address] [facility] [address] Laboratory Report Ordering Provider Test Date Status JEANETTEAYALA 12/28/2023 14:23:17 Final Observation Date Value Abnormality Reference (Units ) Status Erythrocyte sedimentation rate by Photometric method 12/28/2023 14:23:17 37 Above high normal <20 (mm/hour) Final Performing Location LABORATORY [facility] - [address] [facility] [address]
--- OUTSIDE RECORDS SUMMARY | 2023-12-31 13:15 | External Medical Summary | Summary of Care ---
Author Name Unknown Organization [facility] Address [address] [facility] [place] [address] Phone [phone] Care Team Providers Care Athletic Equipment Manager Name Role Phone Jessica Haas PA-C Primary Care Provider Reason for Visit * Reason Onset Date Comments Follow Up 12/30/2023 Encounter Details Date Type Department Care Team (Late st Contact Info) Description 12/30/2023 Telephone Gastroenterology, [facility] [address] [place] [address] Angella Aguilera CRNP [address] [place] [address] Follow Up Allergies Active Allergy Reactions Criticality Noted Date Comments Sulfa Antibiotics Rash 01/18/2001 documented as of this encounter (statuses as of 12/30/2023) Medications Medication Sig Dispensed Refills Start Date [...] 12/14/2023 Active Adalimumab 40 MG/0.8ML Subcutaneous Pen-injector Kit (Humira)Indications:Ul cerative rectosigmoiditis with complication (HCC) Inject 40 mg (1 pen) under the skin every 14 days. 1.6 mL 3 12/21/2023 Active Dicyclomine HCl 10 MG Oral Capsule (Bentyl) Take 1 Capsule by mouth 2 times a day as needed for Cramping. 60 Capsule 2 12/24/2023 Active Additional Information Patient not taking.Reported on 12/28/2023 Ondansetron HCl 4 MG Oral Tablet (Zofran) Take 1 Tablet by mouth every 8 hours as needed for Nausea. 30 Tablet 1 12/24/2023 Active Additional Information Patient not taking.Reported on 12/28/2023 predniSONE 10 MG Oral Tablet (Deltasone) Taper: 60mg daily x 5 days, 50mg daily x 5 days, 40mg daily x 5 days, 30mg daily x 5 days, 20mg daily x 5 days, 10mg daily x 5 days 105 Tablet 0 12/28/2023 Active azaTHIOprine 50 MG Oral Tablet (Imuran) Take 3 Tablets by mouth in the morning. 90 Tablet 2 12/28/2023 Active documented as of this encounter (statuses as of 12/30/2023) Active Problems Problem Noted Date Diagnosed Date Family history of factor V deficiency 12/27/2013 ADVANCE DIRECTIVE INFORMATION 03/04/2007 Overview: No, Advance Directive brochure offered , patient declined. 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 She is having multiple diarrhea and bloody stools. She is agreeable to go to [facility] but won't be arriving till after 5p. [facility] charge nurse (Eliecer) and global implementation manager GI team (Dr. Gray, Elly Thakkar) are made aware Angella Barrios CAITLIN Aguilera documented in this encounter Plan of Treatment Upcoming Encounters Date Type Department Care Team (Latest Contact Info) Description 02/15/2024 3:00 PM EDT Office Visit Dermatology [address] [address] Dominic Lynch PA-C [address] [place] [address] 03/10/2024 12:30 PM EDT Office Visit Gastroenterology, [facility] [address] [place] [address] Angella Aguilera CRNP [address] [place] [address] 05/12/2024 9:30 AM EDT Hospital Encounter ENDO OSSC, Endoscopy Room [facility] [address] [place] [phone] Tunde Rod MD [address] [place] [address] 05/12/2024 9:30 AM EDT - 05/12/2024 10:00 AM EDT Surgery ENDO [facility], Endoscopy Room [facility] [address] [place] [phone] Tunde Rod MD [address] [place] [address] COLONOSCOPY FLEXIBLE PROXIMAL DIAGNOSTIC 05/31/2024 8:15 AM EDT Office Visit Gynecology/Obstetic s [place] [address] [place] [phone] Shirley Jung PA-C [address] [place] [address] Scheduled Procedures Name Priority Associated Diagnoses Date/Ti [...] 06/23/2023, 02/27/2021, Additional history exists Diabetes Screening 12/27/2026 12/28/2023, 1 10/06/2022, 02/19/2023, Additional history exists GARDASIL-HPV IMMUNIZATION SERIES Aged Out No longer eligible based on patient's age to complete this topic MENINGOCOCCAL (MENACTRA/MENVEO) Aged Out No longer eligible based on patient's age to complete this topic documented as of this encounter Medical Devices Not on filedocumented as of this encounter Care Teams Athletic Equipment Manager Relationship Specialty Start Date End Date Jessica Haas PA-C [address] [place] [address] [place] [address] PCP - General Physician Immigration Coordinator 03/09/19 documented as of this encounter
--- OUTSIDE RECORDS SUMMARY | 2023-12-31 13:15 | External Medical Summary | Summary of Care ---
Author Name Unknown Organization [facility] Address [address] [place] [facility] [place] [place] [address] Phone [phone] Care Team Providers Care Coating And Embossing Unit Operator Name Role Phone Jessica Haas PA-C Primary Care Provider Reason for Visit * Reason Comments Outpatient Testing Encounter Details Date Type Department Care Team (Late st Contact Info) Description 12/28/2023 2:30 PM EDT Laboratory Laboratory, [facility] [address] [facility] [address] [place] [address] Ulcerative colitis with rectal bleeding, unspecified location (HCC) Allergies Active Allergy Reactions [...] Additional Information Patient not taking.Reported on 12/28/2023 documented as of this encounter (statuses as [...] Visit Dermatology [facility] [address] [place] [address] Dominic Lynch PA-C [address] [place] [address] 03/10/2024 12:30 PM EDT Office Visit Gastroenterology, [facility] [address] [place] [address] Angella Aguilera CRNP [address] [place] [address] 05/12/2024 9:30 AM EDT Hospital Encounter ENDO [facility], Endoscopy Room [facility] [address] [place] [address] Tunde Rod MD [address] [place] [address] 05/12/2024 9:30 AM EDT - 05/12/2024 10:00 AM EDT Surgery ENDO [facility], Endoscopy Room [facility] [address] [place] [phone] Tunde Rod MD [address] [place] [address] COLONOSCOPY FLEXIBLE PROXIMAL DIAGNOSTIC 05/31/2024 8:15 AM EDT Office Visit Gynecology/Obstetic s [place] [address] [place] [address] Shirley Jung PA-C [address] [place] [address] Pending Results Name Type Priority Associated Diagnoses [...] location (HCC) 12/28/2023 2:23 PM EDT CBC Lab Routine Ulcerative colitis with rectal bleeding, unspecified location (HCC) 12/28/2023 2:23 PM EDT DIFFERENTIAL, AUTOMATED Lab Routine Ulcerative colitis with rectal bleeding, unspecified location (HCC) 12/28/2023 2:23 PM EDT Scheduled Procedures Name Priority Associated Diagnoses Date/Ti ct COLONOSCOPY FLEXIBLE PROXIMAL DIAGNOSTIC Ulcerative colitis (HCC) [...] colitis with rectal bleeding, unspecified location (HCC) Ulcerative colitis (HCC) Ulcerative colitis, unspecified documented in this encounter Care Teams Coating And Embossing Unit Operator Relationship Specialty Start Date End Date Jessica Haas PA-C [address] [place], [place] [address] [phone] PCP - General Physician Specialty Food Products Supervisor 03/09/19 documented as of this encounter
--- OUTSIDE RECORDS SUMMARY | 2023-12-31 13:15 | External Medical Summary | Summary of Care ---
Author Name Unknown Organization [facility] Address [address] [facility] [place] [address] Phone [phone] Care Team Providers Care Park Manager Name Role Phone Jessica Haas PA-C Primary Care Provider Reason for Visit * Reason Onset Date Comments Test Results 12/11/2023 Encounter Details Date Type Department Care Team (Late st Contact Info) Description 12/11/2023 Telephone Gastroenterology, [facility] [address] [place] [address] Angella Cai CRNP [address] [place] [address] Test Results Allergies Active Allergy Reactions Criticality [...] and will continue the humira. Pt did package pick up the steroid already Please advise * Addendum [...] her back in March , that's fine. Angella CAITLIN Hussein * Telephone Encounter - Deann Tate LPN - 12/11/2023 11:10 AM EST [facility] is where she would like her [...] 3:00 PM EDT Office Visit Dermatology [facility] [address] [place] [address] Dominic Lynch PA-C [address] [place] [address] 03/10/2024 12:30 PM EDT Office Visit Gastroenterology, [facility] [address] [place] [address] Angella Cai CRNP [address] [place] [address] 05/12/2024 9:30 AM EDT Hospital Encounter [facility], Endoscopy Room [facility] [address] [place] [phone] Tunde Rod MD [address] [place] [address] 05/12/2024 9:30 AM EDT - 05/12/2024 10:00 AM EDT Surgery ENDO [facility], Endoscopy Room [facility] [address] [place] [phone] Tunde Rod MD [address] [place] [address] COLONOSCOPY FLEXIBLE PROXIMAL DIAGNOSTIC 05/31/2024 8:15 AM EDT Office Visit Gynecology/Obstetic s [facility] [address] [place] [phone] Shirley Jung PA-C [address] [place] [address] Scheduled Procedures Name Priority Associated Diagnoses Date/Ti [...] documented as of this encounter Care Teams Park Manager Relationship Specialty Start Date End Date Jessica Haas PA-C [address] [place], [place] [address] [phone] PCP - General Physician Profiling Machine Operator 03/09/19 documented as of this encounter
--- OUTSIDE RECORDS SUMMARY | 2023-12-31 13:15 | External Medical Summary | Summary of Care ---
Author Name Unknown Organization [facility] Address [address] [facility] [place] [address] Phone [phone] Care Team Providers Care Camera Prototyping Engineer Name Role Phone Jessica Haas PA-C Primary Care Provider Reason for Visit * Reason Onset Date Comments Test Results 12/29/2023 Encounter Details Date Type Department Care Team (Late st Contact Info) Description 12/29/2023 Telephone Gastroenterology, [facility] [address] [place] [address] Angella Aguilera CRNP [address] [place] [address] Test Results Allergies Active Allergy Reactions Criticality Noted Date Comments Sulfa Antibiotics Rash 01/18/2001 documented as of this encounter (statuses as of 12/29/2023) Medications Medication Sig Dispensed Refills Start Date [...] as of this encounter (statuses as of 12/29/2023) Active Problems Problem Noted Date Diagnosed Date Family history of factor V deficiency 12/27/2013 ADVANCE DIRECTIVE INFORMATION 03/04/2007 Overview: No, Advance Directive brochure offered , patient declined. 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 Angella- pt does not have a follow up until March. Do you want any sooner lab work with restarting Azathioprine? * Telephone Encounter - Trang Cheek RN - 12/29/2023 10:58 AM EDT ----- Message from CAITLIN Guevara sent at 12/29/2023 9:40 AM EDT ----- Pls inform pt that her labs doesn't show anemia or dehydration, electrolyte imbalance. She has UC flare and wants to try outpt therapy with higher Prednisone dose + restarting Azathioprine. If she has not improvement in her bloody diarrhea, nausea or worse symptoms, recommend ED visit Angella Denis CAITLIN Aguilera documented in this encounter Plan of Treatment Upcoming Encounters Date Type Department Care Team (Latest Contact Info) Description 02/15/2024 3:00 PM EDT Office Visit Dermatology [facility] [address] [facility] [place] [phone] Dominic Lynch PA-C [address] [place] [address] [place] [address] 03/10/2024 12:30 PM EDT Office Visit Gastroenterology, [facility] [address] [place] [address] Angella Aguilera CRNP [address] [place] [address] 05/12/2024 9:30 AM EDT Hospital Encounter ENDO [facility], Endoscopy Room [facility] [address] [place] [phone] Tunde Rod MD [address] [place] [address] 05/12/2024 9:30 AM EDT - 05/12/2024 10:00 AM EDT Surgery ENDO [facility], Endoscopy Room [facility] [address] [place] [phone] Tunde Rod MD [address] [place] [address] COLONOSCOPY FLEXIBLE PROXIMAL DIAGNOSTIC 05/31/2024 8:15 AM EDT Office Visit Gynecology/Obstetic s [place] [address] [place] [phone] Shirley Jung PA-C [address] [place] [address] Scheduled Procedures Name Priority Associated Diagnoses Date/Ti [...] filedocumented as of this encounter Care Teams Camera Prototyping Engineer Relationship Specialty Start Date End Date Jessica Haas PA-C [address] [place], [place] [address] [phone] PCP - General Physician Phlebotomist Lab Assistant 03/09/19 documented as of this encounter
--- OUTSIDE RECORDS SUMMARY | 2023-12-31 13:15 | External Medical Summary ---
Author Name Unknown Address Unknown Organization [facility] [address] [place] [address] Laboratory Report Ordering Provider Test Date Status AYALA REID 12/28/2023 14:23:17 Final Observation Date Value Abnormality Reference (Units ) Status SYNC LEUKOCYTES IN BLOOD BY AUTOMATED COUNT 12/28/2023 14:23:17 8.52 4.00-10.80 (K/uL) Final Segs 12/28/2023 14:23:17 80.7 Above high normal 40.0-75.0 (%) Final Lymphs % 12/28/2023 14:23:17 8.5 Below low normal 18.0-42.0 (%) Final Monos 12/28/2023 14:23:17 10.3 1.0-11.0 (%) Final Eosinophils 12/28/2023 14:23:17 0.4 0.0-6.0 (%) Final Basos 12/28/2023 14:23:17 0.1 0.0-2.0 (%) Final Absolute Segs 12/28/2023 14:23:17 6.88 1.80-7.70 (K/uL) Final Lymphs, absolute 12/28/2023 14:23:17 0.72 Below low normal 1.00-4.80 (K/ul) Final Monos, Abs 12/28/2023 14:23:17 0.88 0.00-1.10 (K/uL) Final Eos, Abs 12/28/2023 14:23:17 0.03 0.00-0.70 (K/uL) Final Basos, Abs 12/28/2023 14:23:17 0.01 0.00-0.20 (K/uL) Final Performing Location [facility] [address] [place] [address]
--- OUTSIDE RECORDS SUMMARY | 2023-12-31 13:16 | External Medical Summary | Summary of Care ---
Author Name Unknown Organization [facility] Address [address] [place] [address] Phone [phone] Care Team Providers Care Planisher Name Role Phone Jessica Haas PA-C Primary Care Provider Reason for Visit * Reason Comments Dosage Adjustment Via Phone (anticoag Cl inic) Encounter Details Date Type Department Care Team (Late st Contact Info) Description 08/26/2023 10:30 AM EST Telemedicine Gastroenterology, [facility] [address] [place] [address] [facility], Pharmacist Gastro [address] [place], [place] [id number] Ulcerative rectosigmoiditis with complication (HCC)* Allergies Active Allergy Reactions Criticality Noted Date Comments Sulfa Antibiotics Rash 01/18/2001 documented as of this encounter (statuses as of 08/26/2023) Medications Medication Sig Dispensed Refills Start Date [...] pen (40mg) under the skin every 2 weeks 2 Each 5 08/26/2023 Active Humira Pen 40 MG/0.8ML Subcutaneous Pen-injector Kit (Adalimumab)Indication s:Ulcerative rectosigmoiditis with complication (HCC) Inject 4 pens (160mg) under the skin on Day 1, then inject 2 pens (80mg) under the skin on Day 15 6 Each 0 08/26/2023 Active azaTHIOprine 50 MG Oral Tablet (Imuran)Indications:Ul cerative proctosigmoiditis, without complications (HCC) Take 3 Tablets (150 mg) by mouth in the morning. 270 Tablet 3 09/02/2022 3 Discontinue d(End of Procedure) Mesalamine 1.2 GM Oral Tablet Delayed Release (Lialda)Indications:Ul cerative proctosigmoiditis, without complications (HCC) TAKE 4 TABLETS BY MOUTH DAILY 120 Tablet 11 03/18/2023 3 Discontinue d(End of Procedure) documented as of this encounter (statuses as of 08/26/2023) Active Problems Problem Noted Date Diagnosed Date Family history of factor V deficiency 12/27/2013 ADVANCE DIRECTIVE INFORMATION 03/04/2007 Overview: No, Advance Directive brochure offered , patient declined. 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 Patient was then informed that this was a telephone call only visit. The patient agreed to participate. Visit Disposition: Routine follow-up Total call duration was 30 minutes. Gastroenterology Clinical Pharmacy Service: Medication Management Gastroenterology Provider: Angella Aguilera Date of next clinic appointment: 11/24/23 ASSESSMENT Disease Type: Autoimmune, Ulcerative Colitis (UC) MT Inflammatory Bowel Disease Management Treatment overview: Current medication: Humira 40mg/0.8ml pens - 160mg on day 1, then 80mg on day 15, then 40mg/0.8ml Pen - 40mg every 2 weeks Specialty pharmacy: [facility] This medication is considered an anti-TNF drug, which means that it targets a specific protein in the body called tumor necrosis factor (TNF) that causes inflammation in the intestines. It is given as an injection under the skin of the abdomen or thigh. Once taught how to inject the medication, it can be administered at home. It may take up to 12 weeks after starting this medication to see an improvement in symptoms however, a more immediate response can be seen. Side effects can include injection site reactions (such as redness, rash, swelling, itching, pain, or bruising), upper respiratory infections (including sinus infections), headaches, and nausea. This medication has Black Box warnings for an increased risk of serious infections (such as TB, invasive fungal infections and other infections caused by opportunistic pathogens) and on rare occasions, certain types of cancer, includinglymphoma. The patient is aware to let their provider know about other medical conditions that they may have, if they are or planning to become , and any other medications (including wuao-nyv-zaneedp medications or alternative therapies) they may be taking. The patient was instructed to take the medication as directed. The patient was counseled on the importance of continuing to take their medication to prevent flares and not alter the amount of the medication or how frequently they take it, unless otherwise instructed by their provider. Routine lab monitoring may be required. The patient was encouraged to contact their provider if they experience any side effects or their symptoms worsen. Summary: Humira is approved. Medication education completed and health maintenance reviewed. RXs placed to [facility]. Patient has the pharmacy and Humira Complete phone numbers and process reviewed in detail. Patient is aware to stop azathioprine and mesalamine upon starting Humira. Patient's spouse is to administer and then will either opt for the nurse navigator assistance or administer on their own. Dajuan Garcia RPh Clinical Pharmacist, Gastroenterology documented in this encounter Plan of Treatment Upcoming Encounters Date Type Department Care Team (Late st Contact Info) Description 11/24/2023 12:00 PM EST Office Visit Gastroenterology, [facility] [address] [place] [address] Angella Aguilera CRNP [address] [place] [address] Health Maintenance Due Date Last Done Comments Hepatitis B (1 of 3 - 3-dose series) 1974 Lipid Panel 1974 COVID-19 Vaccine (#1) 1979 Pneumococcal Vaccine: Pediatrics (0 to 5 Years) and At-Risk Patients (6 to 64 Years) (1 - PCV) 1980 HIV Screening 1989 Hepatitis C Screening 1992 HPV/Co-Test 2004 Depression Screening 10/21/2018 10/21/2017 DTaP,Tdap,and [...] Visit Diagnoses Diagnosis Ulcerative rectosigmoiditis with complication (HCC)- Primary documented in this encounter Care Teams Planisher Relationship Specialty Start Date End Date Jessica Haas PA-C [address] [place] [id number] PCP - General Physician Senior Business Process Analyst 03/09/19 documented as of this encounter
--- OUTSIDE RECORDS SUMMARY | 2023-12-31 13:16 | External Medical Summary | Summary of Care ---
Author Name Unknown Organization [facility] Address [address] [facility] [place] [address] Phone [phone] Care Team Providers Care Printing Pressman Name Role Phone Jessica Haas PA-C Primary Care Provider Reason for Visit * Reason Onset Date Comments Precert Approved 08/17/2023 HUMIRA Encounter Details Date Type Department Care Team (Late st Contact Info) Description 08/17/2023 Telephone Gastroenterology, [facility] [address] [place] [address] Angella Aguilera CRNP [address] [place] [address] Precert Approved (HUMIRA) Allergies Active Allergy Reactions Criticality Noted Date [...] PO TABS 1 tablets daily 0 Active azaTHIOprine 50 MG Oral Tablet (Imuran)Indications:Ulce rative proctosigmoiditis, without complications (HCC) Take 3 Tablets (150 mg) by mouth in the morning. 270 Tablet 3 09/02/2022 Active Mesalamine 1.2 GM Oral Tablet Delayed Release (Lialda)Indications:Ulduglas rative proctosigmoiditis, without complications (HCC) TAKE 4 TABLETS BY MOUTH DAILY 120 Tablet 11 03/18/2023 Active documented as of this encounter (statuses [...] encounter Miscellaneous Notes * Telephone Encounter - Dajuan Garcia RP - 08/26/2023 10:53 AM EST Spoke with patient and RXs sent * Telephone Encounter - Dajuan Garcia RPh - 08/24/2023 10:16 AM EST Auth approved. I attempted to contact patient to review the next steps. No answer, left message to return call to clinic at earliest convenience. Dajuan Garcia RPh Clinical Pharmacist, Gastroenterology 08/24/2023,10:16 AM * Telephone Encounter - Dajuan Garcia [facility] - 08/17/2023 12:52 PM EST Gastro Pre-Cert Request Specialty Medication: Yes. Medication/Disease State Information: Medication: Adalimumab (Humira) Initiation - 40mg/0.8ml pens - 160mg on day 1, then 80mg on day 15,then 40mg/0.8ml Pen - 40mg every 2 weeks Diagnosis (including ICD-10): Ulcerative colitis K51.90. Specialty medication - route to [id number]. Referral to pharmacist for: co-management. Office Information: Prescriber: Angella Aguilera Last office visit: 08/06/23 Last colonoscopy/imagin06/23/23 Additional information: Patient with active disease on colonoscopy while taking azathioprine and mesalamine Patient requires escalation to biologic Required Screening Information: Vaccination(s): Plan in place for CDC/ACIP vaccination guidelines using Health Maintenance Topics, Best Practice Alerts, and Anticipatory Management Reports within EHR TB Testing: Quantiferon Negative on 08/13/23 Hepatitis B Screenings: Hep B surface antigen and core antibody negative on 08/13/23 No active, severe, and/or uncontrolled infection documented in this encounter Plan of Treatment Upcoming Encounters Date Type Department Care Team (Late st Contact Info) Description 11/24/2023 12:00 PM EST Office Visit Gastroenterology, [facility] [address] [address] Angella Aguilera CRNP [address] [place] [address] Health Maintenance Due Date Last Done Comments [...] filedocumented as of this encounter Care Teams Printing Pressman Relationship Specialty Start Date End Date Jessica Haas PA-C [address] [place], [place] [address] [phone] PCP - General Physician Wire Fence Builder 03/09/19 documented as of this encounter
--- OUTSIDE RECORDS SUMMARY | 2023-12-31 13:16 | External Medical Summary | Summary of Care ---
Author Name Unknown Organization [facility] Address [address] [facility] [place] [address] Phone [phone] Care Team Providers Care Diet Technician Registered Name Role Phone Jessica Haas PA-C Primary Care Provider Reason for Visit * Reason Onset Date Comments Precert Approved 08/17/2023 HUMIRA Encounter Details Date Type Department Care Team (Late st Contact Info) Description 08/17/2023 Telephone Gastroenterology, [facility] [address] [place] [address] Angella Aguilera CRNP [address] [place] [address] Precert Approved (HUMIRA) Allergies Active Allergy Reactions Criticality Noted Date Comments Sulfa Antibiotics Rash 01/18/2001 documented as of this encounter (statuses as of 09/23/2023) Medications Medication Sig Dispensed Refills Start Date [...] 0 Active azaTHIOprine 50 MG Oral Tablet (Imuran)Indications:Ul [...] as of this encounter (statuses as of 09/23/2023) Active Problems Problem Noted Date Diagnosed Date Family history of factor V deficiency 12/27/2013 ADVANCE DIRECTIVE INFORMATION 03/04/2007 Overview: No, Advance Directive brochure offered , patient declined. 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 No answer, left message to return call to clinic at earliest convenience. Per [facility] notes, this was to be shipped 09/17. * Telephone Encounter - Dajuan Garcia RPh - 09/11/2023 8:21 AM EST [facility] - has this been filled for the patient? * Telephone Encounter - Dajuan Garcia [facility] - 09/02/2023 2:07 PM EST I attempted to contact patient to follow-up on Humira start. No answer, left message to return callto clinic at earliest convenience. * Telephone Encounter - Dajuan Garcia [facility] - 08/26/2023 10:53 AM EST Spoke with patient and RXs sent * Telephone Encounter - Dajuan Garcia [facility] - 08/24/2023 10:16 AM EST Auth approved. I attempted to contact patient to review the next steps. No answer, left message to return call to clinic at earliest convenience. Dajuan Garcia [facility] Clinical Pharmacist, Gastroenterology 08/24/2023,10:16 AM * Telephone Encounter - Dajuan Garcia [facility] - 08/17/2023 12:52 PM EST Gastro Pre-Cert Request Specialty Medication: Yes. Medication/Disease State Information: Medication: Adalimumab (Humira) Initiation - 40mg/0.8ml pens - 160mg on day 1, then 80mg on day 15,then 40mg/0.8ml Pen - 40mg every 2 weeks Diagnosis (including ICD-10): Ulcerative colitis K51.90. Specialty medication - route to [id number]. Referral to pharmacist for: co-management. Office Information: [...] 11/24/2023 12:00 PM EST Office Visit Gastroenterology, [facility] [address] [place] [address] Angella Aguilera CRNP [address] [place] [address] Health Maintenance Due Date Last Done Comments [...] filedocumented as of this encounter Care Teams Diet Technician Registered Relationship Specialty Start Date End Date Jessica Haas PA-C [address] [place] [address] [place] [address] PCP - General Physician Adult Probation Officer 03/09/19 documented as of this encounter
--- OUTSIDE RECORDS SUMMARY | 2023-12-31 13:16 | External Medical Summary | Summary of Care ---
Author Name Unknown Organization [facility] Address [address] [facility] [place] [address] Phone [phone] Care Team Providers Care Tie Buyer Name Role Phone Jessica Haas PA-C Primary Care Provider Reason for Visit * Reason Onset Date Comments Follow Up 08/12/2023 Encounter Details Date Type Department Care Team (Late st Contact Info) Description 08/12/2023 Telephone Gastroenterology, [facility] [address] [place] [address] Angella Aguilera CRNP [address] [place] [address] Follow Up Allergies Active Allergy Reactions Criticality Noted Date Comments Sulfa Antibiotics Rash 01/18/2001 documented as of this encounter (statuses as of 08/17/2023) Medications Medication Sig Dispensed Refills Start Date [...] Mesalamine 1.2 GM Oral Tablet Delayed Release (Lialda)Indications:Nahomi rative proctosigmoiditis, without complications (HCC) TAKE 4 TABLETS BY MOUTH DAILY 120 Tablet 11 03/18/2023 Active documented as of this encounter (statuses as of 08/17/2023) Active Problems Problem Noted Date Diagnosed Date Family history of factor V deficiency 12/27/2013 ADVANCE DIRECTIVE INFORMATION 03/04/2007 Overview: No, Advance Directive brochure offered , patient declined. 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 - 08/17/2023 12:51 PM EST Auth started in new encounter * Telephone Encounter - Trang Cheek RN - 08/17/2023 12:47 PM EST Results noted. Do you want us to start a separate TE for auth? * Telephone Encounter - Justyn Garcia [facility] - 08/12/2023 2:44 PM EST Patient returned call and is aware of labs. * Addendum Note - Justyn Garcia [facility] - 08/12/2023 1:48 PM ESTAddended by: JUSTYN GARCIA on: 08/12/2023 01:48 PM Modules accepted: Orders * Telephone Encounter - Justyn Garcia [facility] - 08/12/2023 1:46 PM EST Sure thing. Patient will need pre-screen labs. Orders placed. I attempted to contact patient to review. No answer, left message to return call to clinic at earliest convenience. * Telephone Encounter - Angella Aguilera CRNP - 08/12/2023 12:40 PM EST Noted. Justyn & BR[facility]GET[facility] nurses - can you please initiate prior auth for Humira and schedule teaching appts after med is approved. She can DC Lialda and Imuran once she starts on Humira. CAITLIN Gilman * Telephone Encounter - Alicia Goddard LPN - 08/12/2023 12:27 PM EST Pt calling in. Is willing to switch to the Humira. * Telephone Encounter - Deann Tate LPN - 08/12/2023 12:11 PM EST Did call pt and left msg to have her call us back to discuss cassy msg below. * Telephone Encounter - Angella Aguilera CRNP - 08/12/2023 12:07 PM EST Pls call pt and ask if she decided to proceed with switching her med to either Humira vs Remicade? We had discuss this in detail at her last visit but she wanted some time to think about it CAITLIN Gilman documented in this encounter Plan of Treatment Upcoming Encounters Date Type Department Care Team (Late st Contact Info) Description 11/24/2023 12:00 PM EST Office Visit Gastroenterology, [facility] [address] [place] [address] Angella Augilera CRNP [address] [place] [address] Health Maintenance Due Date Last Done Comments [...] Not on filedocumented as of this encounter Results * HEPATITIS B CORE ANTIBODIES IGG AND IGM (08/13/2023 10:54 AM EST) Hepatitis B Core Antibodies IgG and IgM Negative Negative 08/13/2023 10:55 PM EST LABORATORY C Blood Venous blood specimen / Unknown Venipuncture / Unknown 08/13/2023 10:54 AM EST 08/13/2023 10:54 AM EST Justyn Garcia [facility] LAB BLOOD ORDERA BLES Performing Organization Address City/[facility]/ZIP Co de Phone Number LABORATORY [facility] [address] [place] [address] * HEPATITIS B CORE ANTIBODY IGM (08/13/2023 10:54 AM EST) Pathologist [facility] Hepatitis B Core Antibody IgM Negative Negative 08/13/2023 10:55 PM EST LABORATORY [facility] Blood Venous blood specimen / Unknown Venipuncture / Unknown 08/13/2023 10:54 AM EST 08/13/2023 10:54 AM EST Justyn Garcia [facility] LAB BLOOD ORDERA BLES Performing Organization Address City/[facility]/ZIP Co de Phone Number LABORATORY [facility] [address] [place] [address] * HEPATITIS B SURFACE ANTIBODY (08/13/2023 10:54 AM EST) Hepatitis B Surface Antibody, Quantitative <3.5 mIU/mL 08/13/2023 10:55 PM EST LABORATORY GM Hepatitis B Surface Antibody, Qualitative Negative 08/13/2023 10:55 PM EST LABORATORY GM Hepatitis B Surface Antibody, Interpretation NOT immune to Hepatitis B Virus 08/13/2023 10:55 PM EST LABORATORY [facility] Comment: POSITIVE: >=11.5 mIU/mL INDETERMINATE: 8.5-<11.5 mIU/mL NEGATIVE: <8.5 mIU/mL Blood Venous blood specimen / Unknown Venipuncture / Unknown 08/13/2023 10:54 AM EST 08/13/2023 10:54 AM EST [facility] BL[facility] Performing Organization Address [facility] de Phone Number LABORATORY [address] [address] * HEPATITIS B SURFACE ANTIGEN (08/13/2023 10:54 AM EST) [facility] Hepatitis B Surface Antigen Negative Negative 08/13/2023 10:55 PM EST LABORATORY [facility] Blood Venous blood specimen / Unknown Venipuncture / Unknown 08/13/2023 10:54 AM EST 08/13/2023 10:54 AM EST [facility] ORDERA BLES Performing Organization Address [facility] de Phone Number LABORATORY [address] [address] * QUANTIFERON TB GOLD PLUS (08/13/2023 10:54 AM EST) [facility] Quantiferon-TB Plus, 1T NEGATIVE NEGATIVE 08/16/2023 10:40 PM EST [facility] KynetxY Comment: Negative test result. M. tuberculosis complex infection unlikely. NIL 0.02 IU/mL 08/16/2023 10:40 PM EST [facility] CHANKenshooY Mitogen-NIL 4.90 IU/mL 08/16/2023 10:40 PM EST [facility] [place] TB1-NIL <0.00 IU/mL 08/16/2023 10:40 PM EST [facility] [place] TB2-NIL <0.00 IU/mL 08/16/2023 10:40 PM EST [facility] CHANTILLY Comment: The Nil tube value reflects the background interferon gamma immune response of the patient's blood sample. This value has been subtracted from the patient's displayed TB and Mitogen results. Lower than expected results with the Mitogen tube prevent false-negative Quantiferon readings by detect- ing a patient with a potential immune suppressive condition and/or suboptimal pre-analytical specimen handling. The TB1 Antigen tube is coated with the M. tuberculosis-specific antigens designed to elicit responses from TB antigen primed CD4+ helper T-lymphocytes. The TB2 Antigen tube is coated with the M. tuberculosis-specific antigens designed to elicit responses from TB antigen primed CD4+ helper and CD8+ cytotoxic T-lymphocytes. For additional information, please refer to http://education.[employer].Kingdee/faq/BEK261 (This link is being provided for information/ educational purposes only.) Test Performed at: [facility] [address] [place] [address] Jose G Youngblood M.D., Ph.D.,Director of Laboratories Blood Venous blood specimen / Unknown Venipuncture / Unknown 08/13/2023 10:54 AM EST 08/13/2023 10:54 AM EST Justyn Garcia [facility] LAB BLOOD ORDERA BLES [employer] [place] [address] [place] [address] documented in this encounter Visit Diagnoses Diagnosis Ulcerative rectosigmoiditis with complication (HCC)- Primary documented in this encounter Care Teams Tie Buyer Relationship Specialty Start Date End Date Jessica Haas PA-C [address] [place] [address] PCP - General Physician Electrical Assistant 03/09/19 documented as of this encounter
--- OUTSIDE RECORDS SUMMARY | 2023-12-31 13:16 | External Medical Summary ---
Author Name Unknown Address Unknown Organization K01:LABORATORY [facility] - [address] [place] [address] Laboratory Report Ordering Provider Test Date Status AYALA REID 12/09/2023 15:55:35 Final Observation Date Value Abnormality Reference (Units ) Status WBC, Total 12/09/2023 15:55:35 7.17 4.00-10.80 (K/uL) Final RBC 12/09/2023 15:55:35 4.01 3.85-5.15 (M/uL) Final Hemoglobin 12/09/2023 15:55:35 13.1 12.0-15.3 (g/dL) Final HCT 12/09/2023 15:55:35 39.7 36.0-45.2 (%) Final MCV 12/09/2023 15:55:35 99.0 81.5-97.5 (fL) Final MCH 12/09/2023 15:55:35 32.7 27.0-34.0 (pg) Final MCHC 12/09/2023 15:55:35 33.0 32.0-36.0 (g/dL) Final RDW 12/09/2023 15:55:35 11.8 11.5-15.5 (%) Final Platelets 12/09/2023 15:55:35 337 140-400 (K/uL) Final MPV 12/09/2023 15:55:35 9.8 6.6-11.1 (fL) Final Nucleated erythrocytes/100 leukocytes [Ratio] in Blood by Automated count 12/09/2023 15:55:35 0 <=0 (/100 WBCs) Final Performing Location LABORATORY [facility] - [address] [place] [address]
--- OUTSIDE RECORDS SUMMARY | 2023-12-31 13:16 | External Medical Summary | Summary of Care ---
Author Name Unknown Organization [facility] Address [address] [place] [address] Phone [phone] Care Team Providers Care Computer Systems Security Analyst Name Role Phone Jessica Haas PA-C Primary Care Provider Reason for Visit * Reason Onset Date Comments Advice 12/08/2023 Encounter Details Date Type Department Care Team (Late st Contact Info) Description 12/08/2023 Telephone Gastroenterology, [facility] [address] [facility] [place] [address] Services, Scheduling [address] [place] [address] Advice Allergies Active Allergy Reactions Criticality Noted [...] encounter Miscellaneous Notes * Addendum Note - Trang Cheek RN [...] 2:48 PM EST Pt calling in RE myg message. Pt states she is now unable to get into her chart so she is unable tosee her message. Pt would like a call back. Thanks * Telephone Encounter - Trang Cheek RN - 12/09/2023 1:15 PM EST I left a detailed message for the patient to return my call or to send a CTMG message to detail her flare. * Telephone [...] 02/15/2024 3:00 PM EDT Office Visit Dermatology [facility] [address] [place] [phone] Dominic Lynch PA-C [address] [facility] [place] [phone] 03/10/2024 12:30 PM EDT Office Visit Gastroenterology, [address] [place] [address] Angella Aguilera CRNP [address] [place] [address] 05/12/2024 9:30 AM EDT Hospital Encounter ENDO [facility], Endoscopy Room [facility] [address] [place] [phone] Tunde Rod MD [address] [place] [address] 05/12/2024 9:30 AM EDT - 05/12/2024 10:00 AM EDT Surgery ENDO [facility], Endoscopy Room [facility] [address] [place] [phone] Tunde Rod MD [address] [place] [address] COLONOSCOPY FLEXIBLE PROXIMAL DIAGNOSTIC Scheduled Orders Name Type Priority Associated Diagnoses [...] unspecified documented in this encounter Care Teams Computer Systems Security Analyst Relationship Specialty Start Date End Date Jessica Haas PA-C [address] [place], [place] [address] [address] PCP - General Physician Tanbark Laborer 03/09/19 documented as of this encounter
--- OUTSIDE RECORDS SUMMARY | 2023-12-31 13:16 | External Medical Summary | Summary of Care ---
Author Name Unknown Organization [facility] Address [address] [facility] [place] [address] Phone [phone] Care Team Providers Care Prop Cutter Name Role Phone Jessica Haas PA-C Primary Care Provider Reason for Visit * Reason Comments eRx-Medication Refill Encounter Details Date Type Department Care Team (Late st Contact Info) Description 11/08/2023 Refill Gastroenterology, [facility] [address] [place] [address] Tunde Rod MD [address] [place] [address] Ulcerative proctosigmoiditis, without complications (HCC) Allergies Active Allergy Reactions Criticality Noted Date Comments Sulfa Antibiotics Rash 01/18/2001 documented as of this encounter (statuses as of 11/10/2023) Medications Medication Sig Dispensed Refills Start Date [...] 2 weeks. 2 Each 5 08/26/2023 Active documented as of this encounter (statuses as of 11/10/2023) Active Problems Problem Noted Date Diagnosed Date Family history of factor V deficiency 12/27/2013 ADVANCE DIRECTIVE INFORMATION 03/04/2007 Overview: No, Advance Directive brochure offered , patient declined. 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 documented as of this encounter (statuses as of 11/10/2023) Immunizations Name Administration Dates Next Due Seasonal [...] encounter Miscellaneous Notes * Telephone Encounter - Fabiola Murillo CPhT - 11/10/2023 12:37 PM ESTRefused Prescriptions: Disp Refills azaTHIOprine 50 MG Oral Tablet (Imuran) 270 Ta*0 Sig: TAKE 3 TABLETS BY MOUTH IN THE MORNINGRefused By: Stephanie MURILLO for Refusal: Refill Not Appropriate- * Telephone Encounter - Interface, E-Rx Ss Inbound - 11/10/2023 6:04 AM EST Pending Prescriptions: Disp Refills azaTHIOprine 50 MG Oral Tablet [Pharmacy M*270 Ta*0 Sig: TAKE 3TABLETS BY MOUTH IN THE MORNING documented in this encounter Plan of Treatment Upcoming Encounters Date Type Department Care Team (Late st Contact Info) Description 11/24/2023 12:00 PM EST Office Visit Gastroenterology, [facility] [address] [place] [address] Angella Aguilera CRNP [address] [place] [address] Health Maintenance Due Date Last Done Comments [...] of this encounter Visit Diagnoses Diagnosis Ulcerative proctosigmoiditis, 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
--- OUTSIDE RECORDS SUMMARY | 2023-12-31 13:16 | External Medical Summary | Summary of Care ---
Author Name Unknown Organization [facility] Address [address] [place] [address] Phone [phone] Care Team Providers Care Rn Mds Coordinator Name Role Phone Jessica Haas PA-C Primary Care Provider Reason for Visit * Reason Onset Date Comments Advice 12/08/2023 Encounter Details Date Type Department Care Team (Late st Contact Info) Description 12/08/2023 Telephone Gastroenterology, [facility] [address] [facility] [place] [address] Services, Scheduling [address] [place] [address] Advice Allergies Active Allergy Reactions Criticality Noted [...] return my call or to send a [employer] message to detail her flare. * Telephone [...] Description 02/15/2024 3:00 PM EDT Office Visit [address] [phone] Dominic Lynch PA-C [address] [place] [address], [place] [address] 03/10/2024 12:30 PM EDT Office Visit Gastroenterology, [facility] [address] [place] [address] Angella Aguilera CRNP [address] [place] [address] 05/12/2024 9:30 AM EDT Hospital Encounter ENDO [facility], Endoscopy Room [facility] [address] [place] [phone] Tunde Rod MD [address] [place] [address] 05/12/2024 9:30 AM EDT - 05/12/2024 10:00 AM EDT Surgery ENDO [facility], Endoscopy Room [facility] [address] [place] [phone] Tunde Rod MD [address] [place] [address] COLONOSCOPY FLEXIBLE PROXIMAL DIAGNOSTIC Scheduled Procedures Name [...] filedocumented as of this encounter Care Teams Rn Mds Coordinator Relationship Specialty Start Date End Date Jessica Haas PA-C [address] [place], [place] [address] [phone] PCP - General Physician Manager Regional Sales 03/09/19 documented as of this encounter
--- OUTSIDE RECORDS SUMMARY | 2023-12-31 13:16 | External Medical Summary | Summary of Care ---
Author Name Unknown Organization [facility] Address [address] [facility] [place] [address] Phone [phone] Care Team Providers Care Bistro Server Name Role Phone Jessica Haas PA-C Primary Care Provider Reason for Visit * Reason Onset Date Comments Follow Up 08/12/2023 Encounter Details Date Type Department Care Team (Late st Contact Info) Description 08/12/2023 Telephone Gastroenterology, [facility] [address] [place] [address] Angella Aguilera CRNP [address] [place] [address] Follow Up Allergies Active Allergy Reactions Criticality [...] auth? * Telephone Encounter - Justyn Garcia RPh - 08/12/2023 2:44 PM EST Patient returned call and is aware of labs. * Addendum Note - Justyn Garcia RPh - 08/12/2023 1:48 PM ESTAddended by: JUSTYN GARCIA on: 08/12/2023 01:48 PM Modules accepted: Orders * Telephone Encounter - Justyn Garcia [facility] - 08/12/2023 1:46 PM EST [...] have her call us back to discuss vahideric msg below. * Telephone Encounter - Angella Aguilera CRNP - 08/12/2023 12:07 PM EST Pls call pt and ask if she decided to proceed with switching her med to either Humira vs Remicade? We had discuss this in detail at her last visit but she wanted some time to think about it Angella S Willy, THREADER OPERATOR documented in this encounter Plan of Treatment Upcoming Encounters Date Type Department Care Team (Late st Contact Info) Description 11/24/2023 12:00 PM EST Office Visit Gastroenterology, [facility] [address] [place] [address] Angella Aguilera CRNP [address] [place] [address] Health Maintenance Due Date Last Done Comments [...] IGG AND IGM (08/13/2023 10:54 AM EST) Pathologist [facility] Hepatitis B Core Antibodies IgG and IgM Negative Negative 08/13/2023 10:55 PM EST LAB[facility]ATORY [facility] Blood Venous blood specimen / Unknown Venipuncture / Unknown 08/13/2023 10:54 AM EST 08/13/2023 10:54 AM EST Justyn Garcia [facility] LAB BLOOD ORDERA BLES Performing Organization Address City/[facility]/ZIP Co de Phone Number LABORATORY [place] [address] [place] [address] * HEPATITIS B CORE ANTIBODY IGM (08/13/2023 10:54 AM EST) Pathologist [facility] Hepatitis B Core Antibody IgM Negative Negative 08/13/2023 10:55 PM EST LAB[facility]ATORY [facility] Blood Venous blood specimen / Unknown Venipuncture / Unknown 08/13/2023 10:54 AM EST 08/13/2023 10:54 AM EST Justyn Garcia [facility] LAB BLOOD ORDERA BLES Performing Organization Address [facility]/[place] Co de Phone Number LABORATORY [address] [address] * HEPATITIS B SURFACE ANTIBODY (08/13/2023 10:54 AM EST) Pathologist [facility] Hepatitis B Surface Antibody, Quantitative <3.5 mIU/mL 08/13/2023 10:55 PM EST LABORATORY [facility] Hepatitis B Surface Antibody, Qualitative Negative 08/13/2023 10:55 PM EST LABORATORY [facility] Hepatitis B Surface Antibody, Interpretation NOT immune to Hepatitis B Virus 08/13/2023 10:55 PM EST LABORATORY [facility] Comment: POSITIVE: >=11.5 mIU/mL INDETERMINATE: 8.5-<11.5 mIU/mL NEGATIVE: <8.5 mIU/mL Blood Venous blood specimen / Unknown Venipuncture / Unknown 08/13/2023 10:54 AM EST 08/13/2023 10:54 AM EST Justyn Garcia [facility] LAB BLOOD ORDERA BLES Performing Organization Address City/[facility]/ZIP Co de Phone Number LABORATORY [facility] [address] [place] [address] * HEPATITIS B SURFACE ANTIGEN (08/13/2023 10:54 AM EST) Pathologist [facility] Hepatitis B Surface Antigen Negative Negative 08/13/2023 10:55 PM EST LABORATORY [facility] Blood Venous blood specimen / Unknown Venipuncture / Unknown 08/13/2023 10:54 AM EST 08/13/2023 10:54 AM EST Justyn Garcia [facility] LAB BLOOD ORDERA BLES Performing Organization Address [facility] de Phone Number LABORATORY [facility] [address] [place] [address] * QUANTIFERON TB GOLD PLUS (08/13/2023 10:54 AM EST) [facility] Quantiferon-TB Plus, 1T NEGATIVE NEGATIVE 08/16/2023 10:40 PM EST [facility] [employer]edic[employer] Comment: Negative test result. M. tuberculosis complex infection unlikely. NIL 0.02 IU/mL 08/16/2023 10:40 PM EST [facility] CHANTILLY Mitogen-NIL 4.90 IU/mL 08/16/2023 10:40 PM EST [facility] [place] TB1-NIL <0.00 IU/mL 08/16/2023 10:40 PM EST [facility] [place] TB2-NIL <0.00 IU/mL 08/16/2023 10:40 PM EST [facility] CHANIDEA SPHEREY Comment: The Nil tube value reflects the [...] T-lymphocytes. For additional information, please refer to http://education.[employer]/faq/TBO713 (This link is being provided for information/ educational purposes only.) Test Performed at: [facility] [address] [place], [place] Jose G Youngblood M.D., Ph.D.,Director of Laboratories Blood Venous blood specimen / Unknown Venipuncture / Unknown 08/13/2023 10:54 AM EST 08/13/2023 10:54 AM EST Justyn Garcia [facility] LAB BLOOD ORDERA BLES [employer] [place] [address] [place] [address] documented in this encounter Visit Diagnoses Diagnosis Ulcerative rectosigmoiditis with complication (HCC)- Primary documented in this encounter Care Teams Bistro Server Relationship Specialty Start Date End Date Jessica Haas PA-C [address] [place] [phone] PCP - General Physician Tool And Die Supervisor 03/09/19 documented as of this encounter
--- OUTSIDE RECORDS SUMMARY | 2023-12-31 13:16 | External Medical Summary | Summary of Care ---
Author Name Unknown Organization [facility] Address [address] [facility] [address] Phone [phone] Care Team Providers Care Granulizing Machine Operator Name Role Phone Jessica Haas PA-C Primary Care Provider Reason for Visit * Reason Comments Outpatient Testing Encounter Details Date Type Department Care Team (Latest Contact Info) Description 08/13/2023 11:20 AM EST Laboratory Laboratory, [facility] [address] [facility] [address] [facility] [address] [facility] [address] Ulcerative rectosigmoiditis with complication (HCC) Allergies Active Allergy Reactions Criticality Noted Date Comments Sulfa Antibiotics Rash 01/18/2001 documented as of this encounter (statuses as of 08/13/2023) Medications Medication Sig Dispensed Refills Start Date [...] 1.2 GM Oral Tablet Delayed Release (Lialda)Indications:Nahomi zacarias proctosigmoiditis, without complications (HCC) TAKE 4 TABLETS BY MOUTH DAILY 120 Tablet 11 03/18/2023 Active documented as of this encounter (statuses as of 08/13/2023) Active Problems Problem Noted Date Diagnosed Date Family history of factor V deficiency 12/27/2013 ADVANCE DIRECTIVE INFORMATION 03/04/2007 Overview: No, Advance Directive brochure offered , patient declined. 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 [address] [place] [address] Angella Aguilera CRNP 132 [place] [address] Pending Results Name Type Priority Associated Diagnoses Date /Time QUANTIFERON TB GOLD PLUS Lab Routine Ulcerative rectosigmoiditis with complication (HCC) 08/13/2023 10:54 AM EST HEPATITIS B SURFACE ANTIGEN Lab Routine Ulcerative rectosigmoiditis with complication (HCC) 08/13/2023 10:54 AM EST HEPATITIS B SURFACE ANTIBODY Lab Routine Ulcerative rectosigmoiditis with complication (HCC) 08/13/2023 10:54 AM EST HEPATITIS B CORE ANTIBODY IGM Lab Routine Ulcerative rectosigmoiditis with complication (HCC) 08/13/2023 10:54 AM EST HEPATITIS B CORE ANTIBODIES IGG AND IGM Lab Routine Ulcerative rectosigmoiditis with complication (HCC) 08/13/2023 10:54 AM EST Health Maintenance Due Date Last Done Comments [...] Diagnoses Diagnosis Ulcerative rectosigmoiditis with complication (HCC) documented in this encounter Care Teams Granulizing Machine Operator Relationship Specialty Start Date End Date Jessica Haas PA-C [address] [place], [place] [address] [phone] PCP - General Physician Clerical Transcriber 03/09/19 documented as of this encounter
--- OUTSIDE RECORDS SUMMARY | 2023-12-31 13:16 | External Medical Summary | Summary of Care ---
Author Name Unknown Organization [facility] Address [address] [place] [address] Phone [phone] Care Team Providers Care National Sales Name Role Phone Jessica Haas PA-C Primary Care Provider Reason for Visit * Reason Onset Date Comments Advice 12/08/2023 Encounter Details Date Type Department Care Team (Late st Contact Info) Description 12/08/2023 Telephone Gastroenterology, [facility] [address] [facility] [place] [address] Services, Scheduling [address] [place] [address] Advice Allergies Active Allergy Reactions Criticality Noted [...] encounter Miscellaneous Notes * Telephone Encounter - Lianne Barajas OSA - 12/09/2023 2:48 PM EST Pt calling in RE [employer]gest[employer] message. Pt states she is now unable to get into her chart so she is unable tosee her message. Pt would like a call back. Thanks * Telephone Encounter - Trang Cheek RN - 12/09/2023 1:15 PM EST I left a detailed message for the patient to return my call or to send a Balihoo message to detail her flare. * Telephone [...] 02/15/2024 3:00 PM EDT Office Visit Dermatology [facility] [address] [place] [address] Dominic Lynch PA-C [address] [place] [address] 03/10/2024 12:30 PM EDT Office Visit Gastroenterology, [facility] [address] [place] [address] Angella Aguilera CRNP [address] [place] [address] 05/12/2024 9:30 AM EDT Hospital Encounter ENDO [facility], Endoscopy Room [facility] [address] [place] [phone] Tunde Rod MD [address] [place] [address] 05/12/2024 9:30 AM EDT - 05/12/2024 10:00 AM EDT Surgery [facility]O [facility], [facility] [address] [place] [phone] Tunde Rod MD [address] [place] [address] COLONOSCOPY FLEXIBLE PROXIMAL DIAGNOSTIC Scheduled Procedures Name [...] filedocumented as of this encounter Care Teams National Sales Relationship Specialty Start Date End Date Jessica Haas PA-C [address] [place] [address] [phone] PCP - General Physician Handbag Operator 03/09/19 documented as of this encounter
--- OUTSIDE RECORDS SUMMARY | 2023-12-31 13:16 | External Medical Summary | Summary of Care ---
Author Name Unknown Organization [facility] Address [address] [facility] [place] [address] Phone [phone] Care Team Providers Care Crossing Watchman Name Role Phone Jessica Haas PA-C Primary Care Provider Reason for Visit * Reason Onset Date Comments Precert Approved 08/17/2023 HUMIRA Encounter Details Date Type Department Care Team (Late st Contact Info) Description 08/17/2023 Telephone Gastroenterology, [facility] [address] [place] [address] Angella Aguilera CRNP [address] [place] [address] Precert Approved (HUMIRA) Allergies Active Allergy Reactions Criticality Noted Date Comments Sulfa Antibiotics Rash 01/18/2001 documented as of this encounter (statuses as of 09/02/2023) Medications Medication Sig Dispensed Refills Start Date [...] as of this encounter (statuses as of 09/02/2023) Active Problems Problem Noted Date Diagnosed Date Family history of factor V deficiency 12/27/2013 ADVANCE DIRECTIVE INFORMATION 03/04/2007 Overview: No, Advance Directive brochure offered , patient declined. 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 No answer, left message to return callto clinic at earliest convenience. * Telephone Encounter - Dajuan Garcia RPh - 08/26/2023 10:53 AM EST Spoke with patient and RXs sent * Telephone Encounter - Dajuan Garcia [facility] - 08/24/2023 10:16 AM EST Auth approved. I attempted to contact patient to review the next steps. No answer, left message to return call to clinic at earliest convenience. Dajuan Garcia panfilo Clinical Pharmacist, Gastroenterology 08/24/2023,10:16 AM * Telephone Encounter - Dajuan Garcia [facility] - 08/17/2023 12:52 PM EST Gastro Pre-Cert Request Specialty Medication: Yes. Medication/Disease State Information: Medication: Adalimumab (Humira) Initiation - 40mg/0.8ml pens - 160mg on day 1, then 80mg on day 15,then 40mg/0.8ml Pen - 40mg every 2 weeks Diagnosis (including ICD-10): Ulcerative colitis K51.90. Specialty medication - route to [id number]. Referral to pharmacist for: co-management. Office Information: [...] 11/24/2023 12:00 PM EST Office Visit Gastroenterology, [facility] [address] [place] [address] Angella Aguilera CRNP [address] [address] Health Maintenance Due Date Last Done Comments [...] filedocumented as of this encounter Care Teams Crossing Watchman Relationship Specialty Start Date End Date Jessica Haas PA-C [address] [place], [place] [address] tolliver [phone] PCP - General Physician Hand Edge Bander 03/09/19 documented as of this encounter
--- OUTSIDE RECORDS SUMMARY | 2023-12-31 13:16 | External Medical Summary | Summary of Care ---
Author Name Unknown Organization [facility] Address [address] [facility] [place] [address] Phone [phone] Care Team Providers Care Roll Cleaner Name Role Phone Jessica Haas PA-C Primary Care Provider Reason for Visit * Reason Onset Date Comments Pre Op Discussion 06/17/2023 Encounter Details Date Type Department Care Team (Late st Contact Info) Description 06/17/2023 Telephone OR [facility], Operating Room [facility] [address] [place] [phone] Tunde Rod MD [address] [place] [address] Pre Op Discussion Allergies Active Allergy Reactions Criticality Noted Date Comments Sulfa Antibiotics Rash 01/18/2001 documented as of this encounter (statuses as of 09/16/2023) Medications Medication Sig Dispensed Refills Start Date [...] as of this encounter (statuses as of 09/16/2023) Active Problems Problem Noted Date Diagnosed Date Family history of factor V deficiency 12/27/2013 ADVANCE DIRECTIVE INFORMATION 03/04/2007 Overview: No, Advance Directive brochure offered , patient declined. 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
--- OUTSIDE RECORDS SUMMARY | 2023-12-31 13:16 | External Medical Summary | Summary of Care ---
Author Name Unknown Organization [facility] Address [address] [facility] [place] [address] Phone [phone] Care Team Providers Care Paper Folding Machine Operator Name Role Phone Jessica Haas PA-C Primary Care Provider Reason for Visit * Reason Onset Date Comments Precert Approved 08/17/2023 HUMIRA Encounter Details Date Type Department Care Team (Late st Contact Info) Description 08/17/2023 Telephone Gastroenterology, [facility] [address] [place] [address] Angella Aguilera CRNP [address] [place] [address] Precert Approved (HUMIRA) Allergies Active Allergy Reactions Criticality Noted Date Comments Sulfa Antibiotics Rash 01/18/2001 documented as of this encounter (statuses as of 09/11/2023) Medications Medication Sig Dispensed Refills Start Date [...] as of this encounter (statuses as of 09/11/2023) Active Problems Problem Noted Date Diagnosed Date Family history of factor V deficiency 12/27/2013 ADVANCE DIRECTIVE INFORMATION 03/04/2007 Overview: No, Advance Directive brochure offered , patient declined. 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 * Telephone Encounter - Dajuan Garcia RPh - 09/02/2023 2:07 PM EST I attempted to contact patient to follow-up on Humira start. No answer, left message to return callto clinic at earliest convenience. * Telephone Encounter - Dajuan Garcia [facility] - 08/26/2023 10:53 AM EST Spoke with patient and RXs sent * Telephone Encounter - Dajuan Garcia [facility] - 08/24/2023 10:16 AM EST Auth approved. I attempted to contact patient to review the next steps. No answer, left message to return call to clinic at earliest convenience. Dajuan Garcia RPh Clinical Pharmacist, Gastroenterology 08/24/2023,10:16 AM * Telephone Encounter - Dajuan Garcia RP - 08/17/2023 12:52 PM EST Gastro Pre-Cert Request Specialty Medication: Yes. Medication/Disease State Information: Medication: Adalimumab (Humira) Initiation - 40mg/0.8ml pens - 160mg on day 1, then 80mg on day 15,then 40mg/0.8ml Pen - 40mg every 2 weeks Diagnosis (including ICD-10): Ulcerative colitis K51.90. Specialty medication - route to [id number]. Referral to pharmacist for: co-management. Office Information: [...] 11/24/2023 12:00 PM EST Office Visit Gastroenterology, [facility] [address] [place] [address] Angella Aguilera CRNP [address] [place] [address] Health Maintenance Due Date Last Done Comments [...] filedocumented as of this encounter Care Teams Paper Folding Machine Operator Relationship Specialty Start Date End Date Jessica Haas PA-C [address] [place] [address] [place] [address] PCP - General Physician Ironer Hand 03/09/19 documented as of this encounter
--- OUTSIDE RECORDS SUMMARY | 2023-12-31 13:16 | External Medical Summary | Summary of Care ---
Author Name Unknown Organization [facility] Address [address] [facility] [place] [address] Phone [phone] Care Team Providers Care Transit Planning Manager Name Role Phone Jessica Haas PA-C Primary Care Provider Reason for Visit * Reason Onset Date Comments Precert Approved 08/17/2023 HUMIRA Encounter Details Date Type Department Care Team (Late st Contact Info) Description 08/17/2023 Telephone Gastroenterology, [facility] [address] [place] [address] Angella Aguilera CRNP [address] [place] [address] Precert Approved (HUMIRA) Allergies Active Allergy Reactions Criticality Noted Date Comments Sulfa Antibiotics Rash 01/18/2001 documented as of this encounter (statuses as of 09/30/2023) Medications Medication Sig Dispensed Refills Start Date [...] as of this encounter (statuses as of 09/30/2023) Active Problems Problem Noted Date Diagnosed Date Family history of factor V deficiency 12/27/2013 ADVANCE DIRECTIVE INFORMATION 03/04/2007 Overview: No, Advance Directive brochure offered , patient declined. 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 Per [facility] notes, the first maintenance refill isbeing shipped this week. Patient sees provider in November. * Telephone Encounter - Dajuan Garcia RPh - 09/23/2023 9:06 AM EST Attempted to contact patient. No answer, left message to return call to clinic at earliest convenience. Per [facility] notes, this was to be shipped 09/17. * Telephone Encounter - Dajuan Garcia [facility] - 09/11/2023 8:21 AM EST [facility] - has this been filled for the patient? * Telephone Encounter - Dajuan Garcia [facility] - 09/02/2023 2:07 PM EST I attempted to contact patient to follow-up on Humira start. No answer, left message to return callto clinic at earliest convenience. * Telephone Encounter - Dajuan Garcia [facility] - 08/26/2023 10:53 AM EST Spoke with patient and RXs sent * Telephone Encounter - Dajuan Garcia [facility] - 08/24/2023 10:16 AM EST Auth approved. I attempted to contact patient to review the next steps. No answer, left message to return call to clinic at earliest convenience. Dajuan Garcia [facility] Clinical Pharmacist, Gastroenterology 08/24/2023,10:16 AM * Telephone Encounter - Dajuan Garcia [facility] - 08/17/2023 12:52 PM EST Gastro Pre-Cert Request Specialty Medication: Yes. Medication/Disease State Information: Medication: Adalimumab (Humira) Initiation - 40mg/0.8ml pens - 160mg on day 1, then 80mg on day 15,then 40mg/0.8ml Pen - 40mg every 2 weeks Diagnosis (including ICD-10): Ulcerative colitis K51.90. Specialty medication - route to [id number]. Referral to pharmacist for: co-management. Office Information: [...] 11/24/2023 12:00 PM EST Office Visit Gastroenterology, [facility] [address] [place] [address] Angella Aguilera CRNP [address] [place] [address] Health Maintenance Due Date Last Done Comments [...] filedocumented as of this encounter Care Teams Transit Planning Manager Relationship Specialty Start Date End Date Jessica Haas PA-C [address] [place], [place] [address]T[place] [phone] PCP - General Physician Retail Assistant 03/09/19 documented as of this encounter
--- OUTSIDE RECORDS SUMMARY | 2023-12-31 13:16 | External Medical Summary ---
Author Name Unknown Address Unknown Organization K01:LABORATORY C - [address] [facility] [address] Laboratory Report Ordering Provider Test Date Status AYALA REID 12/09/2023 15:55:35 Final Observation Date Value Abnormality Reference (Units ) Status CRP, low-sensitivity 12/09/2023 15:55:35 7 Above high normal <=5 (mg/L) Final Performing Location [facility] - [address] [facility] [address]
--- OUTSIDE RECORDS SUMMARY | 2023-12-31 13:16 | External Medical Summary ---
Author Name Unknown Address Unknown Organization K01:[facility] [place] [address] [facility] [address] [facility] [address] Laboratory Report Ordering Provider Test Date Status AYALA REID 12/09/2023 15:55:35 Final Observation Date Value Abnormality Reference (Units ) Status Erythrocyte sedimentation rate by Photometric method 12/09/2023 15:55:35 25 Above high normal <20 (mm/hour) Final Performing Location [facility] [place] [address] [facility] [address]
--- OUTSIDE RECORDS SUMMARY | 2023-12-31 13:16 | External Medical Summary | Summary of Care ---
Author Name Unknown Organization [facility] Address [address] [facility] [place] [address] Phone [phone] Care Team Providers Care Metaphysician Name Role Phone Jessica Haas PA-C Primary Care Provider Reason for Visit * Reason Comments Follow Up UC Encounter Details Date Type Department Care Team (Late st Contact Info) Description 11/24/2023 12:00 PM EST Office Visit Gastroenterology, [facility] [address] [place] [address] Angella Aguilera CRNP [address] [place] [address] Ulcerative colitis without complications, unspecified location (HCC)* Allergies Active Allergy Reactions Criticality Noted Date Comments Sulfa Antibiotics Rash 01/18/2001 documented as of this encounter (statuses as of 11/24/2023) Medications Medication Sig Dispensed Refills Start Date [...] as of this encounter (statuses as of 11/24/2023) Active Problems Problem Noted Date Diagnosed Date Family history of factor V deficiency 12/27/2013 ADVANCE DIRECTIVE INFORMATION 03/04/2007 Overview: No, Advance Directive brochure offered , patient declined. 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 documented as of this encounter (statuses as of 11/24/2023) Immunizations Name Administration Dates Next Due Seasonal [...] Sign Reading Time Taken Comments Blood Pressure 122/80 11/24/2023 11:48 AM EST Pulse 80 11/24/2023 11:48 AM EST Temperature 36.6 C (97.8 F) 11/24/2023 11:[address] Respiratory Rate 18 11/24/2023 11:48 AM EST Oxygen Saturation 97% 11/24/2023 11:48 AM EST Inhaled Oxygen Concentration - - Weight 75.8 kg (167 lb) 11/24/2023 11:48 AM EST Height 167.6 cm (5' 6") 11/24/2023 11:48 AM EST Body Mass Index 26.95 11/24/2023 11:48 AM EST documented in this encounter Progress Notes * Angella Aguilera CRNP - 11/24/2023 11:52 AM EST DATE OF SERVICE: 11/24/23 REFERRING PHYSICIAN: Jessica Tran PA-C CC: Ulcerative colitis HPI: 11/24/23: She started Humira 10/2023. Notices less [...] FLEXIBLE PROXIMAL DIAGNOSTIC performed by ANDREI GONZALEZ [facility] COLONOSCOPY, DIAGNOSTIC (RECTUM) 02/14/2013 COLONOSCOPY FLEXIBLE PROXIMAL DIAGNOSTIC performed by Andrei Gonzalez DO at [facility] COLONOSCOPY, DIAGNOSTIC (RECTUM) 04/19/2014 adenomatous polyp, ulcerative colitis, repeat 2 yrs COLONOSCOPY, DIAGNOSTIC (RECTUM) 06/04/2016 chronic colitis/COLONOSCOPY FLEXIBLE PROXIMAL DIAGNOSTIC performed by Tunde Rod MD at ENDOSCOPY [facility] COLONOSCOPY, DIAGNOSTIC (RECTUM) 04/28/2018 active colitis, adenomatous polyp/COLONOSCOPY FLEXIBLE PROXIMAL DIAGNOSTIC performed by Tunde Rod MD at ENDOSCOPY [facility] COLONOSCOPY, DIAGNOSTIC (RECTUM) 04/19/2014 COLONOSCOPY FLEXIBLE PROXIMAL DIAGNOSTIC performed by Tunde Rod MD at ENDOSCOPY [facility] COLONOSCOPY, DIAGNOSTIC (RECTUM) 02/27/2021 diverticulosis in sigmoid colon, internal hemorrhoidsm, inactive (Frank Score 0) Ulcerative colitis / biopsies no significant pathology and require no further endoscopic evaluation / recall 2 year / COLONOSCOPY FLEXIBLE PROXIMAL DIAGNOSTIC performed by Tunde Rod MD at ENDOSCOPY [facility] COLONOSCOPY, DIAGNOSTIC (RECTUM) 06/23/2023 COLONOSCOPY FLEXIBLE PROXIMAL DIAGNOSTIC performed by Tunde Rod MD at ENDOSCOPY [facility] Social History Tobacco Use Smoking status: Never [...] 400 UNITS PO TABS 1 tablets daily Humira Pen 40 MG/0.8ML Subcutaneous Pen-injector Kit (Adalimumab) Inject 1 pen (40mg) under the skin every 2 weeks. 2 Each 5 Magnesium 200 MG Oral Tablet Chewable Take by mouth. No current facility-administered medications for this visit. REVIEW OF SYSTEMS: See HPI above; All other findings negative. EXAM: Filed Vitals: 11/24/23 1148 BP: 122/80 Pulse: 80 Resp: 18 Temp: 36.6 C (97.8 F) TempSrc: Tympanic SpO2: 97% Weight: 75.8 kg (167 lb) Height: 1.676 m (5' 6") GENERAL: Well developed and well nourished in [...] a 48 year old female w Ulcerative colitis, wo concerning flare symptoms. However has L colon active colitis noted on recent surveillance colonoscopy. She is finally agreeable to start Humira, first induction dose 10/2023. Doing quite well wo med adverse reaction. - Repeat ESR/CRP and check Adalimumab drug level/antibody level at next visit - Continue Humira 40mg injection every 2 weeks - Colonoscopy 04/2024 - TB quant gold negative; she is not immune to Hep B. She is advised to start Hep B series, but would like to review more information about this vaccine. Pt education handout given. She can schedule vaccinations via PCP's [...] for their visit today. RETURN TO CLINIC: 3 months or sooner [facility] Gastroenterology, [facility] documented in this encounter Nursing Notes * Domitila Harris RN - 11/24/2023 11:45 AM EST Patient identified by full name and date of chief complaint recheck UC documented in this encounter Plan of Treatment Upcoming Encounters Date Type Department Care Team (Latest Contact Info) Description 02/15/2024 3:00 PM EDT Office Visit [address] [place] [address] Dominic Lynch PA-C [address] [facility] [place] [address] 03/10/2024 12:30 PM EDT Office Visit Gastroenterology, [facility] [address] [place] [address] Angella Aguilera CRNP [address] [place] [address] 05/12/2024 9:30 AM EDT Hospital Encounter ENDO [facility], Endoscopy Room [facility] [address] [place] [address] Tunde Rod MD [address] [place] [address] 05/12/2024 9:30 AM EDT - 05/12/2024 10:00 AM EDT Surgery ENDO [facility], Endoscopy Room [facility] [address] [place] [phone] Tunde Rod MD [address] [place] [address] COLONOSCOPY FLEXIBLE PROXIMAL DIAGNOSTIC Scheduled Orders Name Type Priority Associated Diagnoses Orde r Schedule COLONOSCOPY, DIAGNOSTIC (RECTUM) Procedures Routine Ulcerative colitis without complications, unspecified location (HCC) Ordered: 11/24/2023 Scheduled Procedures Name Priority Associated Diagnoses Date/Ti [...] unspecified documented in this encounter Care Teams Metaphysician Relationship Specialty Start Date End Date Jessica Haas PA-C [address] [place] [phone] PCP - General Physician Production Coordinator 03/09/19 documented as of this encounter
--- OUTSIDE RECORDS SUMMARY | 2023-12-31 13:16 | External Medical Summary | Summary of Care ---
Author Name Unknown Organization [facility] Address [address] [place] [address] Phone [phone] Care Team Providers Care Application Packager Name Role Phone Jessica Haas PA-C Primary Care Provider Reason for Visit * Reason Comments Dosage Adjustment Via Phone (anticoag Cl inic) Encounter Details Date Type Department Care Team (Late st Contact Info) Description 08/26/2023 10:30 AM EST Telemedicine Gastroenterology, [place] [address] [place] [address] [place], Pharmacist Gastro [address] [place], [place] [phone] Ulcerative rectosigmoiditis with complication (HCC)* Allergies Active [...] this encounter Progress Notes * Dajuan Garcia [facility] - 08/26/2023 11:21 AM EST After connecting [...] - 40mg every 2 weeks Specialty pharmacy: [facility] This medication is considered an anti-TNF drug, [...] become , and any other medications (including tsjo-vqw-drqbvpz medications or alternative therapies) they may be [...] and health maintenance reviewed. RXs placed to [facility]. Patient has the pharmacy and Humira Complete [...] 11/24/2023 12:00 PM EST Office Visit Gastroenterology, [facility] [address] [place] [address] Angella Aguilera CRNP [address] [place] [address] Health Maintenance Due Date Last Done Comments [...] Primary documented in this encounter Care Teams Application Packager Relationship Specialty Start Date End Date Jessica Haas PA-C [address] [place] [phone] PCP - General Physician Refuse Driver 03/09/19 documented as of this encounter
--- OUTSIDE RECORDS SUMMARY | 2023-12-31 13:17 | External Medical Summary ---
Author Name Unknown Address Unknown Organization : Laboratory Report Ordering Provider Test Date Status SAM ALEJANDRA 08/13/2023 10:54:41 Final Observation Date Value Abnormality Reference (Units ) Status Mycobacterium tuberculosis stimulated gamma interferon [Interpretation] in Blood Qualitative 08/13/2023 10:54:41 NEGATIVE NEGATIVE Final Negative test result. M. tub erculosis complex
infection unlikely. Gamma interferon background [Units/volume] in Blood by Immunoassay 08/13/2023 10:54:41 0.02 (IU/mL) Final Mitogen stimulated gamma int erferon [Units/volume] corrected for background in Blood 08/13/2023 10:54:41 4.90 (IU/mL) Final Mycobacterium tuberculosis s timulated gamma interferon release by CD4+ T-cells [Units/volume] corrected for background in Blood 08/13/2023 10:54:41 <0.00 (IU/mL) Final Mycobacterium tuberculosis s timulated gamma interferon release by CD4+ and CD8+ T-cells [Units/volume] corrected for background in Blood 08/13/2023 10:54:41 <0.00 (IU/mL) Final The Nil tube value reflects the background [...] T-lymphocytes.
For additional information, please refer to
http://education.Decisiv.Ravgen/faq/[email or web address]
(This link is being provided for information/
educational purposes only.)

Test Performed at:
[facility]
[address] [facility] [place] [address]
Jose G Youngblood M.D., Ph.D.,Director of Laboratories Performing Location
--- OUTSIDE RECORDS SUMMARY | 2023-12-31 13:17 | External Medical Summary | Summary of Care ---
Author Name Unknown Organization [facility] Address [address] [facility] [place] [address] Phone [phone] Care Team Providers Care Stocking Inspector Name Role Phone Jessica Haas PA-C Primary Care Provider Reason for Visit * Reason Onset Date Comments Follow Up 08/12/2023 Encounter Details Date Type Department Care Team (Late st Contact Info) Description 08/12/2023 Telephone Gastroenterology, [facility] [address] [place] [address] Angella Aguilera CRNP [address] [place] [address] Follow Up Allergies Active Allergy Reactions Criticality Noted Date Comments Sulfa Antibiotics Rash 01/18/2001 documented as of this encounter (statuses as of 08/12/2023) Medications Medication Sig Dispensed Refills Start Date [...] as of this encounter (statuses as of 08/12/2023) Active Problems Problem Noted Date Diagnosed Date Family history of factor V deficiency 12/27/2013 ADVANCE DIRECTIVE INFORMATION 03/04/2007 Overview: No, Advance Directive brochure offered , patient declined. 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 * Addendum Note - Justyn Garcia [facility] - 08/12/2023 1:48 PM ESTAddended by: JUSTYN GARCIA on: 08/12/2023 01:48 PM Modules accepted: Orders * Telephone Encounter - Justyn Garcia [facility] - 08/12/2023 1:46 PM EST Sure thing. Patient will need pre-screen labs. Orders placed. I attempted to contact patient to review. No answer, left message to return call to clinic at earliest convenience. * Telephone Encounter - Angella Aguilera CRNP - 08/12/2023 12:40 PM EST Noted. Justyn & GI nurses - can you please initiate prior [...] 11/24/2023 12:00 PM EST Office Visit Gastroenterology, [facility] [address] [place] [address] Willy AngellaCAITLIN Garnett [address] [place] [address] Scheduled Orders Name Type Priority Associated Diagnoses Orde r Schedule QUANTIFERON TB GOLD PLUS Lab Routine Ulcerative rectosigmoiditis with complication (HCC) Expected: 08/12/2023, Expires: 08/12/2024 HEPATITIS B SURFACE ANTIGEN Lab Routine Ulcerative rectosigmoiditis with complication (HCC) Expected: 08/12/2023, Expires: 08/12/2024 HEPATITIS B SURFACE ANTIBODY Lab Routine Ulcerative rectosigmoiditis with complication (HCC) Expected: 08/12/2023, Expires: 08/12/2024 HEPATITIS B CORE ANTIBODY IGM Lab Routine Ulcerative rectosigmoiditis with complication (HCC) Expected: 08/12/2023, Expires: 08/12/2024 HEPATITIS B CORE ANTIBODIES IGG AND IGM Lab Routine Ulcerative rectosigmoiditis with complication (HCC) Expected: 08/12/2023, Expires: 08/12/2024 Health Maintenance Due Date Last Done Comments [...] Primary documented in this encounter Care Teams Stocking Inspector Relationship Specialty Start Date End Date Jessica Haas PA-C [address] [place] [address] [phone] PCP - General Physician Ep Tech 03/09/19 documented as of this encounter
--- OUTSIDE RECORDS SUMMARY | 2023-12-31 13:17 | External Medical Summary ---
Author Name Unknown Address Unknown Organization K01:[facility]ATORY [facility] [place] - [address] [facility] [address] [facility] [address] Laboratory Report Ordering Provider Test Date Status SAM ALEJANDRA 08/13/2023 10:54:41 Final Observation Date Value Abnormality Reference (Units ) Status Hepatitis B virus core Ab [Presence] in Serum 08/13/2023 10:54:41 Negative Negative Final Performing Location [facility] - [address] [facility] [place] [address]
--- OUTSIDE RECORDS SUMMARY | 2023-12-31 13:17 | External Medical Summary | Summary of Care ---
Author Name Unknown Organization [facility] Address [address] [facility] [place] [address] Phone [phone] Care Team Providers Care First Grade Teacher Name Role Phone Jessica Haas PA-C Primary Care Provider Reason for Visit * Reason Onset Date Comments Follow Up 08/12/2023 Encounter Details Date Type Department Care Team (Late st Contact Info) Description 08/12/2023 Telephone Gastroenterology, [facility] [address] [place] [address] Angella Aguilera CRNP [address] [place] [address] Follow Up Allergies Active Allergy Reactions Criticality [...] Notes * Telephone Encounter - Justyn Garcia [facility] - 08/12/2023 2:44 PM EST Patient returned call and is aware of labs. * Addendum Note - Justyn Garcia [facility] - 08/12/2023 1:48 PM ESTAddended by: JUSTYN GARCIA on: 08/12/2023 01:48 PM Modules accepted: Orders * Telephone Encounter - Justyn Garcia [facility] - 08/12/2023 1:46 PM EST Sure thing. [...] Humira. CAITLIN Gilman * Telephone Encounter - lAicia Goddard LPN - 08/12/2023 12:27 PM EST [...] 11/24/2023 12:00 PM EST Office Visit Gastroenterology, [facility] [address] [place] [address] Willy AngellaCAITLIN Garnett [address] [address] Scheduled Orders Name Type Priority Associated Diagnoses [...] Primary documented in this encounter Care Teams First Grade Teacher Relationship Specialty Start Date End Date Jessica Haas PA-C [address] [place] [address] [phone] PCP - General Physician Coating Technician 03/09/19 documented as of this encounter
--- OUTSIDE RECORDS SUMMARY | 2023-12-31 13:17 | External Medical Summary ---
Author Name Unknown Address Unknown Organization K01:[facility]ATORY [facility] [place] - [address] [facility] [address] [facility] [address] Laboratory Report Ordering Provider Test Date Status SAM ALEJANDRA 08/13/2023 10:54:41 Final Observation Date Value Abnormality Reference (Units ) Status Hep B surface Ag 08/13/2023 10:54:41 Negative Neg ative Final Performing Location LAB[facility]ATORY [facility] - [address] [facility] [address] [facility] [address]
--- OUTSIDE RECORDS SUMMARY | 2023-12-31 13:17 | External Medical Summary | Summary of Care ---
Author Name Unknown Organization [facility] Address [address] [facility] [place] [address] Phone [phone] Care Team Providers Care Manager Shipping Name Role Phone Jessica Haas PA-C Primary Care Provider Reason for Visit * Reason Onset Date Comments Follow Up 08/12/2023 Encounter Details Date Type Department Care Team (Late st Contact Info) Description 08/12/2023 Telephone Gastroenterology, [facility] [address] [place] [address] Angella Aguilera CRNP [address] [place] [address] Follow Up Allergies Active Allergy Reactions Criticality [...] encounter Miscellaneous Notes * Telephone Encounter - Alicia Goddard LPN - 08/12/2023 12:27 PM EST Pt calling in. Is willing to switch to the [facility]. * Telephone Encounter - Deann Tate LPN - 08/12/2023 12:11 PM EST Did call pt and left msg to have her call us back to discuss cassy toussaintg below. * Telephone Encounter - Angella Aguilera [...] 11/24/2023 12:00 PM EST Office Visit Gastroenterology, [facility] [address] [place] [address] Angella Aguilera CRNP [address] [place] [address] Health Maintenance Due Date Last Done Comments [...] filedocumented as of this encounter Care Teams Manager Shipping Relationship Specialty Start Date End Date Jessica Haas PA-C [address] [place], [place] [address] [phone] PCP - General Physician Manager Helpdesk 03/09/19 documented as of this encounter
--- OUTSIDE RECORDS SUMMARY | 2023-12-31 13:17 | External Medical Summary ---
Author Name Unknown Address Unknown Organization K01:LABORATORY [facility] [place] - [address] [facility] [address] Laboratory Report Ordering Provider Test Date Status SAM ALEJANDRA 08/13/2023 10:54:41 Final Observation Date Value Abnormality Reference (Units ) Status Hep B Core IgM 08/13/2023 10:54:41 Negative Negat maico Final Performing Location LABORATORY C - [address] [facility] [address]
--- OUTSIDE RECORDS SUMMARY | 2023-12-31 13:17 | External Medical Summary | Summary of Care ---
Author Name Unknown Organization [facility] Address [address] [facility] [place] [address] Phone [phone] Care Team Providers Care Probate Judge Name Role Phone Jessica Haas PA-C Primary Care Provider Reason for Visit * Reason Onset Date Comments Follow Up 08/12/2023 Encounter Details Date Type Department Care Team (Late st Contact Info) Description 08/12/2023 Telephone Gastroenterology, [facility] [address] [place] [address] Angella Aguilera CRNP [address] [place] [address] Follow Up Allergies Active Allergy Reactions Criticality [...] CRNP - 08/12/2023 12:40 PM EST Noted. Dajuan & GI nurses - can you please [...] some time to think about it Angella CAITLIN Hussein documented in this encounter Plan of Treatment Upcoming Encounters Date Type Department Care Team (Late st Contact Info) Description 11/24/2023 12:00 PM EST Office Visit Gastroenterology, [facility] [address] [place] [address] Angella Aguilera CRNP [address] [place] [address] Health Maintenance Due Date Last Done Comments [...] filedocumented as of this encounter Care Teams Probate Judge Relationship Specialty Start Date End Date Jessica Haas PA-C [address] [place] [address] [phone] PCP - General Physician Clothing Trades Workers 03/09/19 documented as of this encounter
--- OUTSIDE RECORDS SUMMARY | 2023-12-31 13:17 | External Medical Summary | Summary of Care ---
Author Name Unknown Organization [facility] Address [address] [facility] [place] [address] Phone [phone] Care Team Providers Care Information Receptionist Name Role Phone Jessica Haas PA-C Primary Care Provider Reason for Visit * Reason Onset Date Comments Follow Up 08/12/2023 Encounter Details Date Type Department Care Team (Late st Contact Info) Description 08/12/2023 Telephone Gastroenterology, [facility] [address] [place] [address] Angella Aguilera CRNP [address] [place] [address] Follow Up Allergies Active Allergy Reactions Criticality [...] encounter Miscellaneous Notes * Addendum Note - Justyn Garcia [facility] - 08/12/2023 1:48 PM ESTAddended by: JUSTYN GARCIA on: 08/12/2023 01:48 PM Modules accepted: Orders * Telephone Encounter - Justyn Garcia [facility] - 08/12/2023 1:46 PM EST [...] wanted some time to think about it AngellaCAITLIN Matthew documented in this encounter Plan of Treatment Upcoming Encounters Date Type Department Care Team (Late st Contact Info) Description 11/24/2023 12:00 PM EST Office Visit Gastroenterology, [facility] [address] [place] [address] Angella Aguilera CRNP [address] [place] [address] Scheduled Orders Name Type Priority Associated Diagnoses [...] Primary documented in this encounter Care Teams Information Receptionist Relationship Specialty Start Date End Date Jessica Haas PA-C [address] [place], [place] [address] [phone] PCP - General Physician Fiberglass Dowel Drawing Operator 03/09/19 documented as of this encounter
--- OUTSIDE RECORDS SUMMARY | 2023-12-31 13:17 | External Medical Summary ---
Author Name Unknown Address Unknown Organization K01:LABORATORY [place] [address] [place] [address] Laboratory Report Ordering Provider Test Date Status SILVESTRE ALEJANDRANoamLIZETT 08/13/2023 10:54:41 Final Observation Date Value Abnormality Reference (Units) Status Hepatitis B virus surface Ab [Units/volume] in Serum or Plasma by Immunoassay 08/13/2023 10:54:41 <3.5 (mIU/mL) Final Hepatitis B virus surface Ab [Presence] in Serum by Immunoassay 08/13/2023 10:54:41 Negative Final HEPATITIS B SURFACE ANTIBODY, INTERPRETATION 08/13/2023 10:54:41 NOT immune to Hepatitis B Virus Final POSITIVE: >=11.5 mIU/mL
INDETERMINATE: 8.5-<11.5 mIU/mL
NEGATIVE: <8.5 mIU/mL Performing Location LABORATORY [place] [address] [place] [address]
--- OUTSIDE RECORDS SUMMARY | 2023-12-31 13:18 | External Medical Summary ---
Author Name Unknown Address Unknown Organization K0G:[facility]ATORY [facility] [address] - [address] [place] [address] Laboratory Report Ordering Provider Test Date Status AYALA REID 08/06/2023 12:28:39 Final Observation Date Value Abnormality Reference (Units ) Status BUN 08/06/2023 12:28:39 10 6-20 (mg/dL) Final Creatinine 08/06/2023 12:28:39 0.7 0.5-1.0 (mg/dL) Final Glomerular filtration rate/1.73 sq M.predicted [Volume Rate/Area] in Serum, Plasma or Blood by Creatinine-based formula (CKD-EPI) 08/06/2023 12:28:39 >90 >=60 (mL/min) Final eGFR is calculated based on the CKD-EPI 2020 equation SODIUM 08/06/2023 12:28:39 139 135-146 (m mol/L) Final Potassium 08/06/2023 12:28:39 4.2 3.5-5.1 (m mol/L) Final Cl 08/06/2023 12:28:39 102 98-107 (mm ol/L) Final CO2 08/06/2023 12:28:39 27 22-32 (mmo l/L) Final Anion gap 08/06/2023 12:28:39 10 7-15 (mmol /L) Final Glucose 08/06/2023 12:28:39 84 70-120 (mg /dL) Final Albumin 08/06/2023 12:28:39 4.3 3.8-5.0 (g /dL) Final AST (Aspartate aminotransferase) 08/06/2023 12:28:39 14 10-35 (U/L) Final Alk Phos 08/06/2023 12:28:39 67 35-130 (U/ L) Final Bilirubin, Total 08/06/2023 12:28:39 0.4 <=1 .2 (mg/dL) Final Calcium 08/06/2023 12:28:39 9.5 8.4-10.2 ( mg/dL) Final Protein 08/06/2023 12:28:39 6.7 6.0-8.3 (g /dL) Final ALT (Alanine aminotransferase) 08/06/2023 12:28:39 11 10-35 (U/L) Final Performing Location [facility] [address] - [address] [place] [address]
--- OUTSIDE RECORDS SUMMARY | 2023-12-31 13:18 | External Medical Summary ---
Author Name Unknown Address Unknown Organization K01:LABORATORY [facility] - [address] [place] [address] Laboratory Report Ordering Provider Test Date Status AYALA REID 08/06/2023 12:28:39 Final Observation Date Value Abnormality Reference (Units ) Status CRP, low-sensitivity 08/06/2023 12:28:39 <3 <=5 (mg/L) Final Performing Location [facility] [address] [facility] [address]
--- OUTSIDE RECORDS SUMMARY | 2023-12-31 13:18 | External Medical Summary | Summary of Care ---
Author Name Unknown Organization [facility] Address [address] [facility] [place] [address] Phone [phone] Care Team Providers Care Ese Teacher Name Role Phone Jessica Haas PA-C Primary Care Provider Reason for Visit * Reason Comments Outpatient Testing Encounter Details Date Type Department Care Team (Late st Contact Info) Description 08/06/2023 12:40 PM EDT Laboratory Laboratory, [facility] [address] [facility] [address] [address] [facility] [address] [place] [address] Arrived Allergies Active Allergy Reactions Criticality Noted Date Comments Sulfa Antibiotics Rash 01/18/2001 documented as of this encounter (statuses as of 08/06/2023) Medications Medication Sig Dispensed Refills Start Date [...] as of this encounter (statuses as of 08/06/2023) Active Problems Problem Noted Date Diagnosed Date Family history of factor V deficiency 12/27/2013 ADVANCE DIRECTIVE INFORMATION 03/04/2007 Overview: No, Advance Directive brochure offered , patient declined. 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 documented as of this encounter (statuses as of 08/06/2023) Immunizations Name Administration Dates Next Due SEASONAL [...] Visit Gastroenterology, [facility] [address] [address] Angella Aguilera CRNP [address] [place] [address] Health Maintenance Due Date Last Done Comments [...] 06/23/2023, 02/27/2021, Additional history exists Diabetes Screening 02/19/2026 02/19/2023, 1 11/02/2021, 01/30/2022, Additional history exists GARDASIL-HPV IMMUNIZATION SERIES Aged Out No longer eligible based on patient's age to complete this topic MENINGOCOCCAL (MENACTRA/MENVEO) Aged Out No longer eligible based on patient's age to complete this topic documented as of this encounter Medical Devices Not on filedocumented as of this encounter Care Teams Ese Teacher Relationship Specialty Start Date End Date Jessica Haas PA-C [address] [place], [place] [address] [phone] PCP - General Physician Orthopedic Designer 03/09/19 documented as of this encounter
--- OUTSIDE RECORDS SUMMARY | 2023-12-31 13:18 | External Medical Summary ---
Author Name Unknown Address Unknown Organization K0G:LABORATORY [place] [address] - [address] [place] [address] Laboratory Report Ordering Provider Test Date Status AYALA REID 08/06/2023 12:28:39 Final Observation Date Value Abnormality Reference (Units ) Status SYNC LEUKOCYTES IN BLOOD BY AUTOMATED COUNT 08/06/2023 12:28:39 6.96 4.00-10.80 (K/uL) Final Segs 08/06/2023 12:28:39 74.5 40.0-75.0 (%) Final Lymphs % 08/06/2023 12:28:39 14.9 Below low normal 18.0-42.0 (%) Final Monos 08/06/2023 12:28:39 9.3 1.0-11.0 (%) Final Eosinophils 08/06/2023 12:28:39 0.7 0.0-6.0 (%) Final Basos 08/06/2023 12:28:39 0.6 0.0-2.0 (%) Final Absolute Segs 08/06/2023 12:28:39 5.18 1.80-7.70 (K/uL) Final Lymphs, absolute 08/06/2023 12:28:39 1.04 1.00-4.80 (K/ul) Final Monos, Abs 08/06/2023 12:28:39 0.65 0.00-1.10 (K/uL) Final Eos, Abs 08/06/2023 12:28:39 0.05 0.00-0.70 (K/uL) Final Basos, Abs 08/06/2023 12:28:39 0.04 0.00-0.20 (K/uL) Final Performing Location LABORATORY [place] [address] - [address] [place] [address]
--- OUTSIDE RECORDS SUMMARY | 2023-12-31 13:18 | External Medical Summary | Summary of Care ---
Author Name Unknown Organization [facility] Address [address] [facility] [place] [address] Phone [phone] Care Team Providers Care Clinical Research Scientist Name Role Phone Jessica Haas PA-C Primary Care Provider Reason for Visit * Reason Onset Date Comments Appointment 07/17/2023 Encounter Details Date Type Department Care Team Description 07/17/2023 Telephone Gastroenterology, [facility] [address] [place] [address] Angella Aguilera CRNP [address] [place] [address] Appointment Allergies Active Allergy Reactions Severity Noted Date Comments Sulfa Antibiotics Rash 01/18/2001 documented as of this encounter (statuses as of 07/17/2023) Medications Medication Sig Dispensed Refills Start Date [...] as of this encounter (statuses as of 07/17/2023) Active Problems Problem Noted Date Family history of factor V deficiency ADVANCE DIRECTIVE INFORMATION 03/04/2007 Overview: No, Advance Directive brochure offered , patient declined. 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 documented as of this encounter (statuses as of 07/17/2023) Immunizations Name Administration Dates Next Due SEASONAL INFLUENZA, PF, 6 M & Above, IM , (FLULAVAL or FLUZONE) 12/06/2019 TDAP (age 11 and older)(Adacel) 09/26/2009 documented as of this encounter Social History Tobacco Use Types Packs/Day Years Used Date Smoking Tobacco: Never Smokeless Tobacco: Never Alcohol Use Standard Drinks/Week Comments No 0 (1 standard drink = 0.6 oz pur e alcohol) Sex Assigned at Date Recorded Not on file Job Start Date Occupation Industry Not on file Not on file Not on file documented as of this encounter Miscellaneous Notes * Telephone Encounter - JOSETTE Rausch - 07/17/2023 10:01 AM EDT LMOM for pt to call back to schedule * Telephone Encounter - CAITLIN Guevara - 07/17/2023 9:55 AM EDT Pls call pt to move up her GI f/u appt with either myself or Dr. Rod to discuss escalation of herUC therapy. Currently scheduled to see me on 09/03 CAITLIN Gilman documented in this encounter Plan of Treatment Upcoming Encounters Date Type Specialty Care Team Description 09/03/2023 Office Visit Gastroenterology Angella Aguilera CRNP [address] [place] [address] Health Maintenance Due Date Last Done Comments [...] filedocumented as of this encounter Care Teams Clinical Research Scientist Relationship Specialty Start Date End Date Jessica Haas PA-C [address] [place], [place] [address] [address] PCP - General Physician Java Scala Developer 03/09/19 documented as of this encounter
--- OUTSIDE RECORDS SUMMARY | 2023-12-31 13:18 | External Medical Summary | Summary of Care ---
Author Name Unknown Organization [facility] Address [address] [facility] [place] [address] Phone [phone] Care Team Providers Care Concrete Laborer Name Role Phone Jessica Haas PA-C Primary Care Provider Reason for Visit * Reason Comments Follow Up Ulcerative colitis, 6 month follow up, Encounter Details Date Type Department Care Team (Late st Contact Info) Description 08/06/2023 12:00 PM EDT Office Visit Gastroenterology, [facility] [address] [place] [address] Angella Aguilera CRNP [address] [place] [address] Ulcerative colitis without complications, unspecified location (HCC)* [...] Date Smoking Tobacco: Never Smokeless Tobacco: Never Tobacco Cessation:Counseling Given: Not Answered Alcohol Use Standard Drinks/Week Comments No 0 [...] Sign Reading Time Taken Comments Blood Pressure 123/57 08/06/2023 11:54 AM EDT Pulse 73 08/06/2023 11:54 AM EDT Temperature 36.7 C (98.1 F) 08/06/2023 11:54 AM E DT Respiratory Rate - - Oxygen Saturation 99% 08/06/2023 11:54 AM EDT Inhaled Oxygen Concentration - - Weight 73.7 kg (162 lb 6.4 oz) 08/06/2023 11:54 AM EDT Height - - Body Mass Index 26.21 06/23/2023 1:41 PM EDT documented in this encounter Progress Notes * Angella Aguilera CRNP - 08/06/2023 11:50 AM EDT DATE OF SERVICE: 08/06/23 REFERRING PHYSICIAN: Jessica Tran PA-C CC: Ulcerative colitis HPI: 08/06/23: Pt recently had surveillance colonoscopy which [...] performed by Tunde Rod MD at [facility] COLONOSCOPY, DIAGNOSTIC (RECTUM) 04/28/2018 active colitis, adenomatous polyp/COLONOSCOPY FLEXIBLE PROXIMAL DIAGNOSTIC performed by Tunde Rod MD at [facility] COLONOSCOPY, DIAGNOSTIC (RECTUM) 04/19/2014 COLONOSCOPY FLEXIBLE PROXIMAL DIAGNOSTIC performed by Tunde Rod MD at [facility] COLONOSCOPY, DIAGNOSTIC (RECTUM) 02/27/2021 diverticulosis in sigmoid colon, internal hemorrhoidsm, inactive (Frank Score 0) Ulcerative colitis / biopsies no significant pathology and require no further endoscopic evaluation / recall 2 year / COLONOSCOPY FLEXIBLE PROXIMAL DIAGNOSTIC performed by Tunde Rod MD at [facility] COLONOSCOPY, DIAGNOSTIC (RECTUM) 06/23/2023 COLONOSCOPY FLEXIBLE PROXIMAL DIAGNOSTIC performed by Tunde Rod MD at [facility] Social History Tobacco Use Smoking status: [...] 400 UNITS PO TABS 1 tablets daily azaTHIOprine 50 MG Oral Tablet (Imuran) Take 3 Tablets (150 mg) by mouth in the morning. 270 Tablet3 Mesalamine 1.2 GM Oral Tablet Delayed Release (Lialda) TAKE 4 TABLETS BY MOUTH DAILY 120 Tablet 11 No current facility-administered medications for this visit. REVIEW OF SYSTEMS: See HPI above; All other findings negative. EXAM: Filed Vitals: 08/06/23 1154 BP: 123/57 Pulse: 73 Temp: 36.7 C (98.1 F) SpO2: 99% Weight: 73.7 kg (162 lb 6.4 oz) GENERAL: Well developed and well nourished [...] active colitis noted on recent surveillance colonoscopy. Today's visit purpose was to discuss escalation of her IBD med therapy because she is not in remission despite being on 5ASA and Azathioprine. We discussed options to convert her meds to biologics such as Humira vs. Remicade. Each med's doses, route of administration, mechanism of action, adverse effects such as infections/malignancy are reviewed. Pt undecided about whether or not she would be willing to escalate med therapy. She understands that there are risks of chronic inflammation, fistula or abscess formation, colon ca involved with active, chronic UC. She also is made aware the importance of closer surveillance colonoscopy (within 6m to 1 yr), ESR/CRP, fecal calprotectin checks should she would like to defer med change. Labs today: Cbc with wbc differential Comprehensive metabolic panel Erythrocyte sedimentation rate (esr) Crp (inflammatory marker) I spent a total of 30 minutes [...] CLINIC: 3 months or sooner [facility] Gastroenterology, [facility] documented in this encounter Nursing Notes * Deann Tate LPN - 08/06/2023 11:55 AM EDT Patient identified by name and date of . Chief Complaint Patient presents with Follow Up Ulcerative colitis, 6 month follow up, Symptoms: NO symptoms Bowel Movement Frequency: once daily Bowel Movement Consistency: formed Straining: no Rectal Pain: no Blood in Stool: No- may occasionally have some blood in stool, rare per pt documented in this encounter Plan of Treatment Upcoming Encounters Date Type Department Care Team (Late st Contact Info) Description 11/24/2023 12:00 PM EST Office Visit Gastroenterology, [facility] [address] [place] [address] Angella Aguilera CRNP [address] [place] [address] Pending Results Name Type Priority Associated Diagnoses Date /Time ERYTHROCYTE SEDIMENTATION RATE (ESR) Lab Routine Ulcerative colitis without complications, unspecified location (HCC) 08/06/2023 12:28 PM EDT CRP (INFLAMMATORY MARKER) Lab Routine Ulcerative colitis without complications, unspecified location (HCC) 08/06/2023 12:28 PM EDT Health Maintenance Due Date Last Done [...] Not on filedocumented as of this encounter Procedures Procedure Name Priority Date/Time Associated Diagnosis Comments DIFFERENTIAL, AUTOMATED Routine 08/06/2023 12:28 PM EDT Ulcerative colitis without complications, unspecified location (HCC) COMPREHENSIVE METABOLIC PANEL Routine 08/06/2023 12:28 PM EDT Ulcerative colitis without complications, unspecified location (HCC) CBC Routine 08/06/2023 12:28 PM EDT Ulcerative colitis without complications, unspecified location (HCC) CBC Routine 08/06/2023 12:28 PM EDT Ulcerative colitis without complications, unspecified location (HCC) documented in this encounter Results * (ABNORMAL) DIFFERENTIAL, AUTOMATED (08/06/2023 12:28 PM EDT) WBC 6.96 4.00 - 10.80 K/uL 08/06/2023 12:38 PM EDT [facility] Neutrophils % 74.5 40.0 - 75.0 % 08/06/2023 12:38 PM EDT [facility] Lymphocytes % 14.9(L) 18.0 - 42.0 % 08/06/2023 12:38 PM EDT [facility] Monocytes % 9.3 1.0 - 11.0 % 08/06/2023 12:38 PM EDT [facility] Eosinophils % 0.7 0.0 - 6.0 % 08/06/2023 12:38 PM EDT [facility] Basophils % 0.6 0.0 - 2.0 % 08/06/2023 12:38 PM EDT [facility] Absolute Neutrophils 5.18 1.80 - 7.70 K/uL 08/06/2023 12:38 PM EDT [facility] Absolute Lymphocytes 1.04 1.00 - 4.80 K/ul 08/06/2023 12:38 PM EDT [facility] 57-10 Absolute Monocytes 0.65 0.00 - 1.10 K/uL 08/06/2023 12:38 PM EDT [facility] 57-10 Absolute Eosinophils 0.05 0.00 - 0.70 K/uL 08/06/2023 12:38 PM EDT [facility] 57-10 Absolute Basophils 0.04 0.00 - 0.20 K/uL 08/06/2023 12:38 PM EDT [facility] 57-10 Blood Venous blood specimen / Unknown Venipuncture / Unknown 08/06/2023 12:28 PM EDT 08/06/2023 12:28 PM EDT Angella TUCKER LAB BLOOD ORDER ESTER [facility] [address] [place] [address] * CBC (08/06/2023 12:28 PM EDT) WBC 6.96 4.00 - 10.80 K/uL 08/06/2023 12:38 PM EDT [facility] 57-10 RBC 3.94 3.85 - 5.15 M/uL 08/06/2023 12:38 PM EDT [facility] 57-10 HGB 13.3 12.0 - 15.3 g/dL 08/06/2023 12:38 PM EDT [facility] 57-10 HCT 39.6 36.0 - 45.2 % 08/06/2023 12:38 PM EDT [facility] 57-10 MCV 100.5 81.5 - 97.5 fL 08/06/2023 12:38 PM EDT [facility] 57-10 MCH 33.8 27.0 - 34.0 pg 08/06/2023 12:38 PM EDT [facility] 57-10 MCHC 33.6 32.0 - 36.0 g/dL 08/06/2023 12:38 PM EDT [facility] 57-10 RDW 12.4 11.5 - 15.5 % 08/06/2023 12:38 PM EDT [facility] 57-10 PLT 344 140 - 400 K/uL 08/06/2023 12:38 PM EDT [facility]10 MPV 9.0 6.6 - 11.1 fL 08/06/2023 12:38 PM EDT [facility]10 Blood Venous blood specimen / Unknown Venipuncture / Unknown 08/06/2023 12:28 PM EDT 08/06/2023 12:28 PM EDT Angella TUCKER LAB BLOOD ORDER ESTER [facility]10 [address] [place] [address] * COMPREHENSIVE METABOLIC PANEL (08/06/2023 12:28 PM EDT) BUN 10 6 - 20 mg/dL 08/06/2023 2:31 PM EDT [facility]10 Creatinine 0.7 0.5 - 1.0 mg/dL 08/06/2023 2:31 PM EDT [facility] 57-10 Estimated Glomerular Filtration Rate >90 >=60 mL/min 08/06/2023 2:31 PM EDT [facility]10 Comment:eGFR is calculated b ased on the CKD-EPI 2020 equation Sodium 139 135 - 146 mmol/L 08/06/2023 2:31 PM EDT [facility] 57-10 Potassium 4.2 3.5 - 5.1 mmol/L 08/06/2023 2:31 PM EDT [facility] 57-10 Chloride 102 98 - 107 mmol/L 08/06/2023 2:31 PM EDT [facility] 57-10 CO2 27 22 - 32 mmol/L 08/06/2023 2:31 PM EDT [facility] 57-10 Anion Gap 10 7 - 15 mmol/L 08/06/2023 2:31 PM EDT [facility] 57-10 Glucose 84 70 - 120 mg/dL 08/06/2023 2:31 PM EDT [facility]10 Albumin 4.3 3.8 - 5.0 g/dL 08/06/2023 2:31 PM EDT [facility]10 AST 14 10 - 35 U/L 08/06/2023 2:31 PM EDT [facility]10 Alkaline Phosphatase 67 35 - 130 U/L 08/06/2023 2:31 PM EDT [facility]10 Bilirubin, Total 0.4 <=1.2 mg/dL 08/06/2023 2:31 PM EDT [facility]10 Calcium 9.5 8.4 - 10.2 mg/dL 08/06/2023 2:31 PM EDT [facility]10 Protein 6.7 6.0 - 8.3 g/dL 08/06/2023 2:31 PM EDT [facility]10 ALT 11 10 - 35 U/L 08/06/2023 2:31 PM EDT [facility]10 Blood Venous blood specimen / Unknown Venipuncture / Unknown 08/06/2023 12:28 PM EDT 08/06/2023 12:28 PM EDT Angella Davis TUCKER LAB BLOOD ORDER ESTER [facility]10 [address] [facility] [place] [address] documented in this encounter Visit Diagnoses Diagnosis Ulcerative colitis without complications, unspecified location (HCC)- Primary documented in this encounter Care Teams Concrete Laborer Relationship Specialty Start Date End Date Jessica Haas PA-C [address] [place] [address] [place] [address] PCP - General Physician City Attorney 03/09/19 documented as of this encounter
--- OUTSIDE RECORDS SUMMARY | 2023-12-31 13:18 | External Medical Summary ---
Author Name Unknown Address Unknown Organization [id number]:[facility] - [address] [place] [address] Laboratory Report Ordering Provider Test Date Status AYALA REID 08/06/2023 12:28:39 Final Observation Date Value Abnormality Reference (Units ) Status WBC, Total 08/06/2023 12:28:39 6.96 4.00-10.8 0 (K/uL) Final RBC 08/06/2023 12:28:39 3.94 3.85-5.15 (M/uL) Final Hemoglobin 08/06/2023 12:28:39 13.3 12.0-15.3 (g/dL) Final HCT 08/06/2023 12:28:39 39.6 36.0-45.2 (%) Final MCV 08/06/2023 12:28:39 100.5 81.5-97.5 (fL) Final MCH 08/06/2023 12:28:39 33.8 27.0-34.0 (pg) Final MCHC 08/06/2023 12:28:39 33.6 32.0-36.0 (g/dL) Final RDW 08/06/2023 12:28:39 12.4 11.5-15.5 (%) Final Platelets 08/06/2023 12:28:39 344 140-400 (K /uL) Final MPV 08/06/2023 12:28:39 9.0 6.6-11.1 ( fL) Final Performing Location [facility]1 0 - [address] [place] [address]
--- OUTSIDE RECORDS SUMMARY | 2023-12-31 13:18 | External Medical Summary | Summary of Care ---
Author Name Unknown Organization [facility] Address [address] [facility] [place] [address] Phone [phone] Care Team Providers Care Piece Dyer Name Role Phone Jessica Haas PA-C Primary Care Provider Reason for Visit * Reason Onset Date Comments Follow Up 08/12/2023 Encounter Details Date Type Department Care Team (Late st Contact Info) Description 08/12/2023 Telephone Gastroenterology, [facility] [address] [place] [address] Angella Aguilera CRNP [address] [place] [address] Follow Up Allergies Active Allergy Reactions Criticality [...] 11/24/2023 12:00 PM EST Office Visit Gastroenterology, [facility] [address] [place] [address] Angella Aguilera CRNP [address] [place] [address] Health Maintenance Due Date Last Done Comments [...] filedocumented as of this encounter Care Teams Piece Dyer Relationship Specialty Start Date End Date Jessica Haas PA-C [address] [place], [place] [address] [address] PCP - General Physician Christmas Tree Contractor 03/09/19 documented as of this encounter
--- OUTSIDE RECORDS SUMMARY | 2023-12-31 13:18 | External Medical Summary | Summary of Care ---
Author Name Unknown Organization [facility] Address [address] [facility] [place] [address] Phone [phone] Care Team Providers Care Adaptive Physical Education Specialist Name Role Phone Jessica Haas PA-C Primary Care Provider Reason for Visit * Reason Onset Date Comments Appointment 07/17/2023 Encounter Details Date Type Department Care Team Description 07/17/2023 Telephone Gastroenterology, [facility] [address] [place] [address] Angella Aguilera CRNP [address] [place] [address] Appointment Allergies Active Allergy Reactions Severity Noted Date Comments Sulfa Antibiotics Rash 01/18/2001 documented as of this encounter (statuses as of 07/23/2023) Medications Medication Sig Dispensed Refills Start Date [...] as of this encounter (statuses as of 07/23/2023) Active Problems Problem Noted Date Family history of factor V deficiency ADVANCE DIRECTIVE INFORMATION 03/04/2007 Overview: No, Advance Directive brochure offered , patient declined. 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 documented as of this encounter (statuses as of 07/23/2023) Immunizations Name Administration Dates Next Due SEASONAL [...] * Telephone Encounter - JOSETTE Rausch - 07/23/2023 1:26 PM EDT LMOM for pt to call back to schedule * Telephone Encounter - JOSETTE Rausch - [...] Angella Aguilera CRNP [address] [place] [address] Health Maintenance Due Date Last Done Comments [...] filedocumented as of this encounter Care Teams Adaptive Physical Education Specialist Relationship Specialty Start Date End Date Jessica Haas PA-C [address] [place], [place] [address] [phone] PCP - General Physician Packing Machine Pilot Can Router 03/09/19 documented as of this encounter
--- OUTSIDE RECORDS SUMMARY | 2023-12-31 13:18 | External Medical Summary | Summary of Care ---
Author Name Unknown Organization [facility] Address [address] [facility] [place] [address] Phone [phone] Care Team Providers Care Customer Experience Intern Name Role Phone Jessica Haas PA-C Primary Care Provider Reason for Visit * Reason Onset Date Comments Appointment 07/17/2023 Encounter Details Date Type Department Care Team Description 07/17/2023 Telephone Gastroenterology, [facility] [address] [place] [address] Kadeem Aguilera CRNP [address] [place] [address] Appointment Allergies Active Allergy Reactions Severity Noted [...] encounter Miscellaneous Notes * Telephone Encounter - Miriam Mauricio - 07/23/2023 1:33 PM EDT Pt called back, she is scheduled with kadeem on 08/11/23 @ 1:00 AM * Telephone Encounter - JOSETTE Rausch - [...] Currently scheduled to see me on 09/03 Kadeem S CAITLIN Aguilera documented in this encounter Plan of Treatment Upcoming Encounters Date Type Specialty Care Team Description 08/11/2023 Office Visit Gastroenterology Kadeem Aguilera CRNP [address] [place] [address] Health Maintenance Due Date Last Done Comments [...] filedocumented as of this encounter Care Teams Customer Experience Intern Relationship Specialty Start Date End Date Jessica Haas PA-C [address] [place], [place] [address] [phone] PCP - General Physician Corrugator Operator Helper 03/09/19 documented as of this encounter
--- OUTSIDE RECORDS SUMMARY | 2023-12-31 13:18 | External Medical Summary | Summary of Care ---
Author Name Unknown Organization [facility] Address [address] [place] [address] Phone [phone] Care Team Providers Care Wax Pattern Assembler Name Role Phone Jessica Haas PA-C Primary Care Provider Encounter Details Date Type Department Care Team (Late st Contact Info) Description 07/28/2023 Orders Only Outcomes Research Department [address] [place] [address] Bethany Kline CHRA [facility] Research Other*[id number] Allergies Active Allergy Reactions Criticality Noted Date Comments Sulfa Antibiotics Rash 01/18/2001 documented as of this encounter (statuses as of 07/28/2023) Medications Medication Sig Dispensed Refills Start Date [...] Mesalamine 1.2 GM Oral Tablet Delayed Release (Lialda)Indications:Ulce rative proctosigmoiditis, without complications (HCC) TAKE 4 TABLETS BY MOUTH DAILY 120 Tablet 11 03/18/2023 Active documented as of this encounter (statuses as of 07/28/2023) Active Problems Problem Noted Date Diagnosed Date Family history of factor V deficiency 12/27/2013 ADVANCE DIRECTIVE INFORMATION 03/04/2007 Overview: No, Advance Directive brochure offered , patient declined. 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 documented as of this encounter (statuses as of 07/28/2023) Immunizations Name Administration Dates Next Due SEASONAL INFLUENZA, PF, 6 M & Above, IM , (FLULAVAL or FLUZONE) 12/06/2019 TDAP (age 11 and older)(Adacel) 09/26/2009 documented as of this encounter Social History Tobacco Use Types Packs/Day Years Used Date Smoking Tobacco: Never Smokeless Tobacco: Never Alcohol Use Standard Drinks/Week Comments No 0 (1 standard drink = 0.6 oz pur e alcohol) Sex and Gender Information Value Date Recorded Sex Assigned at Not on file Gender Identity Not on file Sexual Orientation Not on file Job Start Date Occupation Industry Not on file Not on file Not on file documented as of this encounter Plan of Treatment Upcoming Encounters Date Type Department Care Team (Late st Contact Info) Description 08/11/2023 1:00 PM EST Office Visit [facility]astroenterology, [facility] [place] [address] Angella Aguilera CRNP [address] [place] [address] Scheduled Orders Name Type Priority Associated Diagnoses Orde r Schedule MYCODE SUBSEQUENT ADULT Lab Routine [employer] Other*[id number] Every 6 Months for 2 Occurrences starting 07/28/2023 until 08/16/2024 Health Maintenance Due Date Last Done Comments [...] as of this encounter Visit Diagnoses Diagnosis [employer] Other*[id number] documented in this encounter Care Teams Wax Pattern Assembler Relationship Specialty Start Date End Date Jessica Haas PA-C [address] [place], [place] [address] [address] PCP - General Physician Town Administrator 03/09/19 documented as of this encounter
--- OUTSIDE RECORDS SUMMARY | 2023-12-31 13:18 | External Medical Summary | Summary of Care ---
Author Name Unknown Organization [facility] Address [address] [facility] [place] [address] Phone [phone] Care Team Providers Care Bond Broker Name Role Phone Jessica Haas PA-C Primary Care Provider Reason for Visit * Reason Onset Date Comments Follow Up 08/12/2023 Encounter Details Date Type Department Care Team (Late st Contact Info) Description 08/12/2023 Telephone Gastroenterology, [facility] [address] [place] [address] Angella Aguilera CRNP [address] [place] [address] Follow Up Allergies Active Allergy Reactions Criticality [...] 11/24/2023 12:00 PM EST Office Visit Gastroenterology, [facility] [address] [place] [address] Angella Aguilera CRNP [address] [place] [address] Health Maintenance Due Date Last Done Comments [...] filedocumented as of this encounter Care Teams Bond Broker Relationship Specialty Start Date End Date Jessica Haas PA-C [address] [place], [place] [address] [address] PCP - General Physician Blasting Coal Miner 03/09/19 documented as of this encounter
--- OUTSIDE RECORDS SUMMARY | 2023-12-31 13:18 | External Medical Summary ---
Author Name Unknown Address Unknown Organization K01:[facility] [place] [address] [place] [address] Laboratory Report Ordering Provider Test Date Status AYALA REID 08/06/2023 12:28:39 Final Observation Date Value Abnormality Reference (Units ) Status Erythrocyte sedimentation rate by Photometric method 08/06/2023 12:28:39 16 <20 (mm/hour) Final Performing Location [facility] [address] [facility] [address]
--- NOTE | 2023-12-31 13:28 | Hospitalist Progress Note ---
Date of Service December 31, 2023 Assessment & Plan (1) Exacerbation of ulcerative colitis: (2) History of colonoscopy: Plan: This is a 48-year-old female with past medical history significant for ulcerative proctosigmoiditis, family history of factor V deficiency comes because of ulcerative colitis flare. Exacerbation of ulcerative colitis Failed outpatient treatment with p.o. prednisone Recent start of Humira in October Continue home mesalamine and Imuran IV Solu-Medrol 20 mg TID IV fluids, IV Dilaudid as needed IV antiemetics as needed GI consulted -underwent unprepped colonoscopy that showed severe colitis. Recommend continuing IV steroids, rule out CMV by pathology results and plan to transition to new biologic, per GI Repeat CRP and albumin level tomorrow Hgb 11.6. Repeat in AM GI okay advancing to clears DVT Ppx: SCDs Code status: FULL Patient seen in collaboration with Dr. Willis. Please see addendum. I spent a total of 50 minutes coordinating, documenting, and providing care for this patient excluding time spent in the performance of separately billed services. Admission and Anticipated Discharge Date Admission Date: December 30, 2023 Supervising Physician Co-Signing Physician Notes Patient is seen and examined at bedside. States having bloody diarrhea associated with abdominal cramps and nausea. Patient had colonoscopy today showed findings suggestive of Frank 3 pancolitis. Biopsies were obtained. On exam patient is moderately built and nourished, no apparent distress, normocephalic/atraumatic, EOMI, normal breath sounds, clear to auscultation, S1- S2, no murmur, no pedal edema, abdomen soft, mild tenderness on lower quadrants, no guarding or rigidity, alert, awake, oriented, grossly no focal deficits. Patient is being managed for ulcerative colitis flare. Continue mesalamine, Imuran. Also on IV Solu-Medrol. Appreciate GI input. Clear liquid diet for n ow. Further management as per GI. IV fluids as needed. Avoid anticoagulation given bloody diarrhea. Monitor CBC. I personally interviewed and examined at bedside. Patient's care is coordinated with Jolynn Wade PA-C. I have reviewed the advanced practitioner's documentation, and I agree with plan of care. Please refer to the documentation above for details of patient's presentation and for discussion of other issues. I spent a total [id number] coordinating, documenting, and providing care for this patient excluding time spent in the performance of separately billed services. Subjective Patient seen and examined in 379 bed 2 in follow-up for ulcerative colitis flare. Patient endorsing 8 bloody bowel movements yesterday prior to starting IV steroids in the ED. Since then, has only had 3 additional episodes. No abdominal pain associated with this flare. No fever, chills, chest pain, shortness of breath, nausea, vomiting, dysuria. Underwent unprepped colonoscopy by Dr. Gray today revealing severe colitis with edema and erythema throughout. Review of Systems Review of Systems: At least ten systems reviewed and negative except as noted in the HPI. Physical Exam Physical Exam: Gen: WD/WN, NAD, sitting upright in bed, A&Ox3 HEENT: Normocephalic, atraumatic, conjunctivae moist, sclerae anicteric, mucous membranes moist Lung: Clear to Auscultation bilaterally, no wheezes/rales/rhonchi Heart: Regular rate, regular rhythm, no murmurs, rubs, or gallops Abdomen: Soft, diffuse TTP, ND, no guarding +BS x 4 Extremities: no edema Skin: Warm, no rash Results & Data Results & Data Vital Signs (Past 12 Hours) Vital Signs Temp Pulse Resp BP Pulse Ox O2 Del Method 12/31/23 10:13 87 16 135/79 99 Room Air 12/31/23 09:58 85 16 127/85 98 Room Air 12/31/23 09:42 101 H 16 116/83 97 Room Air 12/31/23 09:06 36.6 C 84 16 149/87 H 100 Room Air 12/31/23 07:40 36.6 C 87 16 130/79 97 Room Air Laboratory Results Short CBC 12/30/23 12/31/23 Range/Units 18:02 05:30 WBC 8.87 7.22 (4.8-10.8) K/ul Hgb 13.2 11.6 L (12.0-16.0) g/dl Hct 39.9 34.5 L (37.0-47.0) % Plt Count 434 H 347 (130-400) K/uL BMP 12/30/23 12/31/23 12/31/23 18:02 05:30 07:13 Sodium 137 137 Potassium 3.7 TNP 3.9 Chloride 102 107 Carbon Dioxide 27 25 BUN 12 6 Creatinine 0.72 0.66 Glucose 109 H 126 H Calcium 9.3 8.1 L Liver Function 12/30/23 Range/Units 18:02 Total Bilirubin 0.6 (0.2-1.0) mg/dl AST 14 (13-39) U/L ALT 22 (7-52) U/L Alkaline Phosphatase 79 (34-104) U/L Albumin 3.9 (3.4-5.0) gm/dl Urine 12/30/23 Range/Units 18:02 Urine Color Dark Yellow Urine Appearance Cloudy A (Clear) Urine pH 6.0 (4.5-7.5) Ur Specific [place] 1.036 H (1.000-1.030) Urine Protein 1+ H (Negative) Urine Glucose (UA) Negative (Negative) Diagnostic Findings Abdomen/Pelvis CT 12/30/23 17:53 Exam(s): CT ABDOMEN + PELVIS With Contrast IV Amt: 89 ml optiray 320 EXAM: CT Abdomen and Pelvis With Intravenous Contrast CLINICAL HISTORY: Reason for exam: C COLITIS FLARE, PAIN/BLOODY DIARRHEA. TECHNIQUE: Axial computed tomography images of the abdomen and pelvis with intravenous contrast. CTDI is 13.8 mGy and DLP is 690.21 mGy-cm. Automated exposure control was utilized for the study. A dose lowering technique was utilized adhering to the principles of ALARA. CONTRAST: Patient received 89 ml optiray 320 of IV contrast COMPARISON: No relevant prior studies available. FINDINGS: Lung bases: Unremarkable. No mass. No consolidation. ABDOMEN: Liver: Unremarkable. No mass. Gallbladder and bile ducts: Unremarkable. No calcified stones. No ductal dilation. Pancreas: Unremarkable. No mass. No ductal dilation. Spleen: Unremarkable. No splenomegaly. Adrenals: Unremarkable. No mass. Kidneys and ureters: Unremarkable. No solid mass. No hydronephrosis. Stomach and bowel: Pancolonic wall thickening with associated pericolic fat stranding and venous engorgement. No bowel obstruction. PELVIS: Appendix: Normal appendix. Bladder: Unremarkable. No mass. Reproductive: Multiple uterine masses, largest a right intramural mass measuring 7.7 cm, likely fibroids. ABDOMEN and PELVIS: Intraperitoneal space: Scant free pelvic fluid. No free air. Bones/joints: No acute fracture. No dislocation. Soft tissues: Unremarkable. Vasculature: Unremarkable. No abdominal aortic aneurysm. Lymph nodes: Unremarkable. No enlarged lymph nodes. IMPRESSION: 1. Pancolonic wall thickening consistent with pancolitis, inflammatory or infectious. 2. Fibroid uterus. Electronically signed by: Babs Corrales M.D. 12/30/23 19:21 PM
--- NOTE | 2023-12-31 15:20 | Anesthesiology Progress Note ---
Date of Service December 31, 2023 Anesthesia Post Procedure Vital Signs Vital Signs: Temp Pulse Pulse Resp BP BP Pulse Ox 12/31/23 14:56 36.7 C 84 16 138/87 98 12/31/23 10:13 87 16 135/79 99 12/31/23 09:58 85 16 127/85 98 12/31/23 09:42 101 H 16 116/83 97 12/31/23 09:06 36.6 C 84 16 149/87 H 100 12/31/23 07:40 36.6 C 87 16 130/79 97 12/31/23 00:49 36.9 C 95 H 16 147/83 H 95 12/30/23 23:52 36.9 C 83 16 125/79 98 12/30/23 22:00 87 16 124/81 99 12/30/23 20:00 87 18 131/80 100 12/30/23 17:22 36.5 C 97 H 20 129/85 97 O2 Del Method 12/31/23 14:56 Room Air 12/31/23 10:13 Room Air 12/31/23 09:58 Room Air 12/31/23 09:42 Room Air 12/31/23 09:06 Room Air 12/31/23 07:40 Room Air 12/31/23 00:49 Room Air 12/30/23 23:52 Room Air 12/30/23 22:00 Room Air 12/30/23 20:00 Room Air 12/30/23 17:22 Room Air Transfer of Care Handoff Completed per policy Notes Mental Status: alert / awake / arousable and participated in evaluation Nausea / Vomiting: adequately controlled Pain: adequately controlled Airway Patency, RR, SpO2: stable & adequate BP & HR: stable & adequate Hydration State: stable & adequate Anesthetic Complications: no major complications apparent and Pt Satisfied with anesthetic care
[2023-12-31] MEDS ORDERED: Nursing to Pharmacy Communication SCH (23:30)
[2024-01-01 06:17] LABS: Hematocrit (blood only) 33.3 % (37.0-47.0); Hemoglobin 11.2 g/dl (12.0-16.0); Mean Corpuscular Hemoglobin 30.9 pg (25.0-34.0); Mean Corpuscular Hgb Conc 33.6 g/dL (32.0-36.0); Mean Corpuscular Volume 91.7 fL (80.0-100.0); Mean Platelet Volume 8.6 fL (9.4-12.4); Platelet Count 341 K/uL (130-400); RDW Coefficient of Variation 11.9 % (11.5-14.5); RDW Standard Deviation 39.6 fL (36.4-46.3); Red Blood Count 3.63 M/uL (4.20-5.40); White Blood Count 8.39 K/ul (4.8-10.8)
[2024-01-01 06:45] LABS: Albumin Globulin Ratio 1.1 (0.9-2); Albumin Level 2.9 gm/dl (3.4-5.0); BUN Creatinine Ratio 4.5 (10-20); Bilirubin,Total 0.3 mg/dl (0.2-1.0); C Reactive Protein 0.84 mg/dl (0-0.5); Calcium 8.2 mg/dl (8.6-10.3); Creatinine Clr Calc Pharmacy 104.8 ml/min; Est GFR (African American) 120.2 ml/min; Est GFR (Non-African American) 103.7 ml/min; Globulin 2.6 gm/dl (2.5-4.0); Magnesium 1.9 mg/dl (1.7-2.4); Potassium 3.9 mmol/L (3.5-5.1); Total Protein 5.5 gm/dl (6.0-8.3)
[2024-01-01] MEDS: MESALAMINE 1.2 GM PO SCH (08:15)
--- NOTE | 2024-01-01 08:47 | Gastroenterology Progress Note ---
Date of Service January 01, 2024 Assessment & Plan (1) Exacerbation of ulcerative colitis: Plan Discussed w IBD pharmacist, Angella Aguilera NP who follows here in GI clinic. Plan is to stop the Humira, for now, continue Azathioprine (pt has an OP prescription for this that she will restart on return home) and start Rinvoq. Will get fasting lipid panel tomorrow morning to assess cardiac risk prior to starting Rinvoq as an OP. Will advance diet to soft. Anticipate that she will need one more day of IV steroids, then DC on 60mg /day w taper instructions; 60mg/day for 4 days (pt tells me that 40mg is not effective for her and that she was been on tapers starting at 60/day), then 50mg/day for 4 days, then 40/day for a week, 30/day for a week. Close OP GI f/u for UC in the GI OP clinic w Angella Aguilera for further taper instructions. Anticipate discharge tomorrow if continues to clinically improve. Admission and Anticipated Discharge Date Admission Date: December 30, 2023 Supervising Physician Co-Signing Physician Notes Agree with pe and plan as documented. Subjective 48 yr old female admitted w UC flare on Humira since October. Previously on Azathioprine and mesalamine. Failed OP tx, admitted on 12/29. Colonoscopy yesterday w severe rangel colitis. Today: feels "much better" Two loose/liquid brown BMs w minimal blood in the last 12 hrs which is a significant improvement. Review of Systems 2 Review of Systems: ROS: Gen: Denies weakness, fevers, weight loss Eyes: No eye redness, or pain, no recent vision changes Resp: No SOB, no cough Cardio: No palpitations/irregular beats, no chest pain GI: LLQ discomfort, nausea but "no pain" : Denies pain on urination Skin: No jaundice, itching or new rashes Physical Exam 2 Constitutional: WD/WN, vitals as above Eyes: PERRL, conjunctivae normal, anicteric sclerae ENMT: external ear and nose normal, oropharynx normal Neck: trachea midline, no thyromegaly Respiratory: normal respiratory effort, lungs clear to auscultation Cardiovascular: RRR, no murmur, no edema Gastrointestinal (Abdomen): normal bowel sounds, soft, nontender, no hepatosplenomegaly Musculoskeletal: no cyanosis or clubbing, extremities motor strength 5/5 Skin: no rashes, warm and dry Neurologic: PERRL, EOMI, accommodation nl, no face palsy, no dysarthria Psychiatric: A+Ox3, euthymic affect Lymphatic: no cervical or axillary lymphadenopathy Results & Data Vital Signs (Past 12 Hours) Vital Signs Temp Pulse Resp BP Pulse Ox O2 Del Method 01/01/24 07:05 36.7 C 81 18 114/71 97 Room Air 12/31/23 20:46 36.6 C 82 16 121/77 97 Room Air Laboratory Results 01/01/24 05:57 01/01/24 05:57 Diagnostic Findings CTAP w IV contast 12/30/23: 1. Pancolonic wall thickening consistent with pancolitis, inflammatory or infectious. 2. Fibroid uterus.
[2024-01-01 12:54] LABS: CMV IgG Antibody <0.60 U/mL; CMV IgM Antibody <30.00 AU/mL
--- NOTE | 2024-01-01 15:12 | Hospitalist Progress Note ---
Date of Service January 01, 2024 Assessment & Plan (1) Exacerbation of ulcerative colitis: (2) History of colonoscopy: Plan: This is a 48-year-old female with past medical history significant for ulcerative proctosigmoiditis, family history of factor V deficiency comes because of ulcerative colitis flare. Exacerbation of ulcerative colitis Failed outpatient treatment with p.o. prednisone Recent start of Humira in October Continue home mesalamine and Imuran IV Solu-Medrol 20 mg TID IV fluids, IV Dilaudid as needed IV antiemetics as needed GI consulted -underwent unprepped colonoscopy that showed severe colitis Recommend continuing IV steroids today with likely pred taper tomorrow - 60mg/day for 4 days, then 50mg/day for 4 days, then 40/day for a week, 30/day for a week, etc Close OP GI f/u for UC in the GI OP clinic with Angella Aguilera for further taper instructions Per GI- Plan is to stop the Humira, for now, continue Azathioprine (pt has an OP prescription for this that she will restart on return home), mesalamine and start Rinvoq Will get fasting lipid panel tomorrow morning to assess cardiac risk prior to starting Rinvoq as an OP. Diet advanced to soft DVT Ppx: SCDs Code status: FULL Patient seen in collaboration with Dr. Smith. Please see addendum. I spent a total of 35 minutes coordinating, documenting, and providing care for this patient excluding time spent in the performance of separately billed services. Admission and Anticipated Discharge Date Admission Date: December 30, 2023 Supervising Physician Co-Signing Physician Notes Patient seen and examined independently. Discussed with above provider. Patient reports improvement of the symptoms with IV steroid. CRP improved as well. Plan to continue IV steroid for 1 more day with possible discharge tomorrow a.m. depending on clinical improvement. Will need to have close follow-up with PCP and GI I have reviewed the advanced practitioner's documentation, and I agree with, and take responsibility for the plan of care I spent a total of 25 minutes coordinating, documenting, and providing care for this patient excluding time spent in the performance of separately billed services. All of the aforementioned completed while collaborating with the assigned advanced practitioner for a full treatment plan Subjective Patient seen and examined in 379 bed 2. Feeling better today with 2 bowel movements overnight with some blood present but less than previous. Still without abdominal pain. No fever, chills, chest pain or shortness of breath. No nausea or vomiting. Tolerating diet without issue. Continuing IV steroids today per GI and discussion of starting a biologic agent, which patient is anxious about. Encouraged to discuss specifics on medication with GI service today during rounds. Review of Systems Review of Systems: At least ten systems reviewed and negative except as noted in the HPI. Physical Exam Physical Exam: Gen: WD/WN, NAD, sitting upright in bed, A&Ox3 HEENT: Normocephalic, atraumatic, conjunctivae moist, sclerae anicteric, mucous membranes moist Lung: Clear to Auscultation bilaterally, no wheezes/rales/rhonchi Heart: Regular rate, regular rhythm, no murmurs, rubs, or gallops Abdomen: Soft, diffuse TTP, ND, no guarding +BS x 4 Extremities: no edema Skin: Warm, no rash Results & Data Results & Data Vital Signs (Past 12 Hours) Vital Signs Temp Pulse Resp BP Pulse Ox O2 Del Method 01/01/24 14:24 36.8 C 90 18 127/78 97 Room Air 01/01/24 07:05 36.7 C 81 18 114/71 97 Room Air Laboratory Results Short CBC 01/01/24 Range/Units 05:57 WBC 8.39 (4.8-10.8) K/ul Hgb 11.2 L (12.0-16.0) g/dl Hct 33.3 L (37.0-47.0) % Plt Count 341 (130-400) K/uL BMP 01/01/24 05:57 Sodium 139 Potassium 3.9 Chloride 108 H Carbon Dioxide 26 BUN 3 L Creatinine 0.66 Glucose 128 H Calcium 8.2 L Liver Function 01/01/24 Range/Units 05:57 Total Bilirubin 0.3 (0.2-1.0) mg/dl AST 14 (13-39) U/L ALT 15 (7-52) U/L Alkaline Phosphatase 57 (34-104) U/L Albumin 2.9 L (3.4-5.0) gm/dl Diagnostic Findings Abdomen/Pelvis CT 12/30/23 17:53 Exam(s): CT ABDOMEN + PELVIS With Contrast IV Amt: 89 ml optiray 320 EXAM: CT Abdomen and Pelvis With Intravenous Contrast CLINICAL HISTORY: Reason for exam: ULC COLITIS FLARE, PAIN/BLOODY DIARRHEA. TECHNIQUE: Axial computed tomography images of the abdomen and pelvis with intravenous contrast. CTDI is 13.8 mGy and DLP is 690.21 mGy-cm. Automated exposure control was utilized for the study. A dose lowering technique was utilized adhering to the principles of ALARA. CONTRAST: Patient received 89 ml optiray 320 of IV contrast COMPARISON: No relevant prior studies available. FINDINGS: Lung bases: Unremarkable. No mass. No consolidation. ABDOMEN: Liver: Unremarkable. No mass. Gallbladder and bile ducts: Unremarkable. No calcified stones. No ductal dilation. Pancreas: Unremarkable. No mass. No ductal dilation. Spleen: Unremarkable. No splenomegaly. Adrenals: Unremarkable. No mass. Kidneys and ureters: Unremarkable. No solid mass. No hydronephrosis. Stomach and bowel: Pancolonic wall thickening with associated pericolic fat stranding and venous engorgement. No bowel obstruction. PELVIS: Appendix: Normal appendix. Bladder: Unremarkable. No mass. Reproductive: Multiple uterine masses, largest a right intramural mass measuring 7.7 cm, likely fibroids. ABDOMEN and PELVIS: Intraperitoneal space: Scant free pelvic fluid. No free air. Bones/joints: No acute fracture. No dislocation. Soft tissues: Unremarkable. Vasculature: Unremarkable. No abdominal aortic aneurysm. Lymph nodes: Unremarkable. No enlarged lymph nodes. IMPRESSION: 1. Pancolonic wall thickening consistent with pancolitis, inflammatory or infectious. 2. Fibroid uterus. Electronically signed by: Babs Corrales M.D. 12/30/23 19:21 PM
[2024-01-02 06:48] LABS: Hematocrit (blood only) 40.2 % (37.0-47.0); Hemoglobin 13.1 g/dl (12.0-16.0); Mean Corpuscular Hemoglobin 30.9 pg (25.0-34.0); Mean Corpuscular Hgb Conc 32.6 g/dL (32.0-36.0); Mean Corpuscular Volume 94.8 fL (80.0-100.0); Mean Platelet Volume 8.5 fL (9.4-12.4); Platelet Count 402 K/uL (130-400); RDW Coefficient of Variation 12.1 % (11.5-14.5); RDW Standard Deviation 41.4 fL (36.4-46.3); Red Blood Count 4.24 M/uL (4.20-5.40); White Blood Count 8.12 K/ul (4.8-10.8)
[2024-01-02 07:04] LABS: BUN Creatinine Ratio 8.5 (10-20); Chol HDL Ratio 2.8 (0-5); Creatinine Clr Calc Pharmacy 97.4 ml/min; Est GFR (African American) 115.9 ml/min; Potassium 3.9 mmol/L (3.5-5.1)
[2024-01-02] MEDS ORDERED: methylPREDNISolone 125 MG/2 ML VIAL IV STA (08:55)
[2024-01-02] MEDS: methylPREDNISolone 60 MG in SYRINGE 0 ML IV ONE (10:44)
--- NOTE | 2024-01-02 14:52 | Discharge Summary ---
Date of Service January 02, 2024 Admission HPI Per Admitting Provider 48-year-old female with past medical history significant for ulcerative proctosigmoiditis, family history of factor V deficiency comes because of ulcerative colitis flare. Patient states started on Humira in October. Patient also on Imuran and mesalamine. And she is on prednisone for almost 4 weeks and recently started on high-dose prednisone 60 mg. But still she is having multiple episodes of diarrhea and blood in the stools. Has abdominal pain prior to moving bowels and after bowel movement the pain subsides. Has nausea but no vomiting. Appetite is down. Denies any fevers. Micturating okay. No chest pain or shortness of breath. No headache. No blurred visions. No runny nose or sore throat or cough. Hemodynamics are okay. Past medical history. As mentioned above Past surgical history. Multiple colonoscopies. Social history. . No smoking. No alcohol use. No drug use. Family history. Maternal grandmother had breast cancer. Sister has thyroid disease. Admission Exam Per Admitting Provider General- Not in distress Head- atraumatic Eyes- PERRL. ENT- oropharynx clear Neck- supple, no JVD. Lungs- clear to auscultation no wheezing or crackles. Heart- regular rhythm; no murmur, no gallop. Abdomen- normal bowel sounds, soft, nontender, no distension. Extremities- no pretibial edema, no erythema seen. Neuro- alert, oriented PERRL, no facial palsy; no dysarthria; moves extremities. Skin- warm & dry Principal Diagnosis Ulcerative colitis flareup Discharge Exam Constitutional: WD/WN, vitals as above, NAD, sitting up in bed, pleasant, conversing easily Abdomen: normal bowel sounds, soft, nontender, no hepatosplenomegaly Musculoskeletal: no cyanosis or clubbing, extremities motor strength 5/5 Skin: no rashes, warm and dry normal turgor Neurologic: Grossly intact Psychiatric: A+Ox3, euthymic affect Discharge Data Allergies Allergy/AdvReac Type Severity Reaction Status Date / Time Sulfa (Sulfonamide Allergy Mild Rash Verified 12/31/23 09:05 Antibiotics) Consultations 12/30/23 19:44 ED Decision to Admit Stat 12/31/23 08:00 Consult Gastroenterology Routine Procedures Performed Operation Date: 12/31/23 17:30 Actual Procedures p Colonoscopy - Irphan E. Gaslightwala, MD Ordered Studies 12/30/23 17:53 CT Abd and Pelvis [CT abd pelvis IV con only] Stat Hospital Course (1) Exacerbation of ulcerative colitis: (2) History of colonoscopy: This is a 48-year-old female with past medical history significant for ulcerative proctosigmoiditis, family history of factor V deficiency comes because of ulcerative colitis flare. Patient was started on IV methylprednisolone. GI was consulted for comanagement Patient showed signs of improvement throughout the hospitalization. At the time of the discharge, patient had minimal diarrhea; no abdominal pain. As per GI recommendations; patient was discharged home on tapering course of steroids. Humira was started as per recommendation. Patient to be started on Rinvoq and to continue on azathioprine Patient to follow-up with GI and PCP after discharge. Please note the above document was generated using voice recognition software. It may contain grammatical, syntax or spelling errors. Any formal questions or concerns about the content, text or information contained within the body of this dictation should be directly addressed to the provider for clarification Total Time Total Time Spent Total Time Spent (In Minutes): 35 Total Time Includes: Examination of the Patient, Discharge Planning, Medication Reconciliation, Communication With Other Providers and Other Discharge Plan Discharge Items Patient Disposition: Home - Self-Care Reason For Visit: UC FLARE Discharge Diagnosis: Ulcerative colitis flareup Activity: Resume your previous activity Non-emergency contact: Primary Care Provider Call non-emergency contact if: you have any medication questions and your symptoms worsen Follow-up/Referrals: Jessica Haas PA-C [Outside Practitioners] - (Date & Time 01/06/2024 10:00 AM Provider Dank Martin PA-C Department [facility] ) Diet: Regular Addtl Attending Provider Instructions: You were admitted to the hospital due to ulcerative colitis flareup. You were evaluated by GI during the hospitalization. The plan is to stop the Humira for now, continue azathioprine and start Rinvoq as outpatient. Regarding the steroids; take them as followin) Prednisone 60 mg once a day for 4 days 2) Prednisone 50 mg once a day for 4 days 3) Prednisone 40 mg once a day for a week 4) Prednisone 30 mg once a week The prednisone should be tapered off as instructed by your GI doctor from then on. Please follow-up with them. An appointment with your primary care doctor will be set up for sometime next 2 weeks. Pending Studies at Discharge: No Stand-Alone Forms: [facility], Smoking Cessation Medications and DC Order Prescriptions: Continued multivitamin Tablet 1 tab PO DAILY prednisone 10 mg tablet 60 mg PO DAILY cyanocobalamin (vitamin B-12) [Vitamin B-12] 1,000 mcg Tablet 1,000 mcg PO DAILY azathioprine 50 mg tablet 150 mg PO QAM folic acid 0.8 mg Capsule 0.8 mg PO DAILY cholecalciferol (vitamin D3) [Vitamin D3] 25 mcg (1,000 unit) Tablet 25 mcg PO DAILY mesalamine 1.2 gram tablet,delayed release (DR/EC) 4.8 g PO QAM Discontinued Humira Pen 40 mg/0.8 mL pen injector kit 40 mg SUBCUT .[id number] Discharge Orders: Discharge Order (Routine); Ordered 01/02/24 Ordered By: Alfa Smith Admission Data Admit Date/Time: 12/30/23 23:38 Attending Provider: Alfa Smith Admit Provider: Felipe Muhammad Primary Care Provider: PCP,NO Other Providers: Felipe Muhammad; Dayna Gray Other Interventions: Discharge Summary Assessment (RN) Last Done: 12/31/23 10:08
== END 2024-01-02 11:24 | disposition home or self-care (01) | DRG 387 ==
LOC: ED 17:18 → SUATTDRO 23:38 → 3N 23:38